=== PATIENT | female | born 1975 | race Two or more races ===

== ENCOUNTER → 2021-02-05 09:55 | Outpatient (BNVA) | payer OTHER, SELFPAY | PROVIDERS: PCP Family Medicine; Referring Provider Family Medicine; Visit Provider Nurse Practitioner ==

== ENCOUNTER 2021-03-01 08:57 | Outpatient (REF) | payer OTHER, SELFPAY ==
--- NOTE | ~2021-03-01 | US_ITS ---
EXAMINATION: US ABDOMEN COMPLETE CLINICAL INFORMATION: Other specified diseases of liver. Hepatic cyst. COMPARISON: Ultrasound abdomen complete 05/09/2020 and 11/15/2019. CT abdomen and pelvis 01/27/2019. TECHNIQUE: Real-time imaging of the abdominal viscera. FINDINGS: PANCREAS: Normal. ABDOMINAL AORTA: The proximal, mid, and distal segments are normal in caliber. INFERIOR VENA CAVA: Visualized portions are normal. LIVER: The liver is normal in size. The liver contour is normal. There is increased liver echogenicity. There are anechoic cysts in anterior segment measuring 3.7 x 2.1 x 4.1 cm and right hepatic lobe posterior segment measuring 1.3 x 1.4 x 1 0.9 cm. There are likely smaller cysts as well. There is no intrahepatic biliary duct dilatation seen. GALLBLADDER: Normal. The gallbladder is physiologically distended without evidence of stones, sludge, polyps, wall thickening or pericholecystic fluid. COMMON BILE DUCT: Normal in caliber measuring 0.5 cm in diameter. RIGHT KIDNEY: Normal. No hydronephrosis. No renal calculi or focal parenchymal lesions. The kidney measures 12.7 cm in maximum dimension. LEFT KIDNEY: Normal. No hydronephrosis. No renal calculi or focal parenchymal lesions. The kidney measures 12.3 cm in maximum dimension. SPLEEN: Normal. The spleen measures 10.1 cm in maximum dimension. FREE FLUID: None. US/US abdomen complete IMPRESSION: Hepatic steatosis with 2 hepatic cysts. They are stable to previous ultrasound exams 2018 and 2019. Rest of the abdominal ultrasound is unremarkable.
== END 2021-03-01 08:58 | disposition home or self-care (01) ==
LOC: HO.HMGCX 08:57
PROVIDERS: Visit Provider Nurse Practitioner
DX: K76.89 Other specified diseases of liver (principal)
CPT/HCPCS: 76700

== ENCOUNTER 2021-03-09 14:00 | Outpatient (RCR) | payer OTHER, SELFPAY ==
[2021-02-13 15:03] VITALS: BP 137/70; PULSE 73
== END 2021-04-03 13:41 | disposition home or self-care (01) ==
LOC: HO.PT 14:00
PROVIDERS: PCP Internal Medicine; Visit Provider Internal Medicine
DX: H81.13 Benign paroxysmal vertigo, bilateral (principal)
CPT/HCPCS: 97110; 97112; 97162

== ENCOUNTER → 2021-07-31 10:55 | Outpatient (BNVA) | payer OTHER, SELFPAY | PROVIDERS: PCP Internal Medicine; Visit Provider Nurse Practitioner ==

== ENCOUNTER 2021-08-02 13:05 | Outpatient (REF) | payer OTHER, SELFPAY ==
[2021-08-05 12:16] LABS: Gliadin Deamidated IgA Ab 3 Units; Gliadin Deamidated IgG Ab 3 Units
[2021-08-05 17:12] LABS: Transglutaminase Ab IgG 2 U/mL; Transglutaminase IgA 1 U/mL
== END 2021-08-02 13:06 | disposition home or self-care (01) ==
LOC: HO.LAB 13:05
PROVIDERS: PCP Internal Medicine; Visit Provider Nurse Practitioner
DX: R14.0 Abdominal distension (gaseous) (principal)
CPT/HCPCS: 36415; 83516

== ENCOUNTER 2021-08-09 15:00 | Outpatient (RCR) | payer OTHER, SELFPAY | END 2021-08-22 11:29 | disposition home or self-care (01) | LOC: HO.PT 15:00 | PROVIDERS: PCP Internal Medicine; Visit Provider Internal Medicine | DX: M54.5 Low back pain (principal) | CPT/HCPCS: 97110; 97112; 97161 ==

== ENCOUNTER → 2021-08-31 15:42 | Outpatient (BNVA) | payer OTHER, SELFPAY | PROVIDERS: PCP Internal Medicine; Visit Provider Nurse Practitioner | DX: K59.00 Constipation, unspecified (principal); K21.9 Gastro-esophageal reflux disease without esophagitis; K76.89 Other specified diseases of liver; R14.0 Abdominal distension (gaseous) | CPT/HCPCS: 99212 ==

== ENCOUNTER → 2021-10-18 08:23 | Outpatient (REF) | payer OTHER, SELFPAY ==
--- NOTE | 2021-10-18 08:30 | CA_ITS ---
Transthoracic Echocardiogram Patient (Last, First, Middle): Tanna Hinton, Gender: Female Date of : 1975 Age: 46 Procedure Date: 10/18/2021 Procedure Type: Transthoracic Echocardiogram Location: OP Height: 162.56 cm Weight: 94.8 kg BSA: 1.99 m2 Heart Rate: bpm BP: 128 / 85 mmHg Drain Cleaner: ROGE/KYLAH Referring MD: Zulema Silva MD Symptoms: I10 HTN R01.1 CARDIAC MURMUR Study Quality: Fair ECG Rhythm: Sinus Conclusions: - The left ventricular systolic function is normal. The calculated ejection fraction is 59% by biplane method. - No obvious valvular pathology seen on this study. Findings Left Ventricle Normal left ventricular cavity size. There is normal left ventricular wall thickness. The left ventricular systolic function is normal. The calculated ejection fraction is 59% by biplane method. There is no evidence of regional wall motion abnormalities. Diastolic function is normal for age. Right Ventricle Normal right ventricular cavity size and systolic function. Atria Both atria are normal in size. Aortic Valve There is a normal trileaflet aortic valve. There is no aortic valve stenosis. There is trace (trivial) aortic valve regurgitation. Mitral Valve The mitral valve appears normal. There is trace mitral valve regurgitation. There is no mitral valve stenosis. Pulmonic Valve The pulmonic valve was not well visualized. Tricuspid Valve Normal tricuspid valve structure. There is trace tricuspid valve regurgitation. The pulmonary artery systolic pressure is normal. Great Vessels The aortic annulus, sinuses of valsalva, and asc aorta are normal in size. Venous The inferior vena cava is normal in size and collapses greater than 50% with inspiration. Pericardium/Pleural There is no evidence of pericardial effusion. Prior Study Comparison No prior study available for comparison. Recommendations, Care & Conclusions No obvious valvular pathology seen on this study. Measurements 2D Linear Measurements IVSd: 0.81 0.6-0.9/0.6-1.0 cm LVIDd: 5.51 3.9-5.3/4.2-5.9 cm LVIDd Index: 2.77 2.4-3.2/2.2-3.1 cm/m2 LVIDs: 3.86 2.0-3.6 cm LVPWd: 0.76 0.7-1.1 cm Ao Root: 2.90 2.1-3.5 cm LA Diam: 3.50 2.7-3.8/3.0-4.0 cm LAIDs Index: 1.76 1.5-2.3 cm/m2 LV Mass: 194.80 67-162/88-224 g LV Mass Index: 97.89 43-95/49-115 g/m2 LVOT Diam: 1.80 3.0+(-)1.3 cm 2D Systolic Function EF 4C: 56.50 >55% EF 2C: 60.90 >55% EF BiP: 58.70 >55% Mitral Valve MV Pk E: 1.06 MV PK A: 0.80 MV Decel Time: 260.00 E/A: 1.30 E'Lateral: 11.50 E'Medial: 8.70 E/E' Med: 12.20 E/E' Lat: 9.20 PHT: 76.00 MVA PHT: 2.89 Decel [place]: 4.08 Aortic Valve AoV Pk Devendra: 1.99 AoV Mn Devendra: 1.44 AoV VTI: 0.46 AoV Pk Grad: 16.00 Aov Mn Grad: 9.00 LUCIANA Cont.VTI: 1.71 LVOT LVOT Pk Devendra: 1.38 LVOT Mn Devendra: 0.84 LVOT VTI: 0.31 LVOT Pk Grad: 8.00 LVOT Mn Grad: 3.00 LVOT Diam: 1.80 LVOT Area: 2.54 Diastolic Function MV Pk E: 1.06 MV Pk A: 0.80 E/A: 1.30 E'Medial: 8.70 E/E' Med: 12.20 E' Laterial: 11.50 E/E' Lat: 9.20 Right Ventricle TAPSE (mm): 2.90 TVS' Devendra: 14.00 Tricuspid Valve TR Pk Devendra: 1.84 TR Pk Grad: 14.00 RA Press: 8.00 RVSP: 22.00 Great Vessels Aorta Ao Root-2D: 2.90 2.0-3.7 cm Ao Asc: 3.10 2.1-3.4 cm Ao Arch: 2.50 Updated in Other Vendor System with Status of Final Antony Jolly MD electronically signed on 10/19/2021 11:30:03 AM with status of Final
== END ==
LOC: HO.CARD 08:23
PROVIDERS: PCP Internal Medicine; Visit Provider Pediatrics
DX: R01.1 Cardiac murmur, unspecified (principal); I10 Essential (primary) hypertension
CPT/HCPCS: 93306

== ENCOUNTER 2022-02-05 15:35 | Outpatient (REF) | payer OTHER, SELFPAY ==
--- NOTE | ~2022-02-05 | MM_ITS ---
EXAMINATION: MM SCREENING DIGITAL BREAST TOMOSYNTHESIS, BILATERAL CLINICAL INFORMATION: Screening. Asymptomatic. The lifetime risk of breast cancer based on the Tyrer-Cuzick Model is 10%. COMPARISON: Mammography: November 12, 2019 and studies dating back to January 08, 2016 TECHNIQUE: Digital breast tomosynthesis is performed in both the craniocaudal and mediolateral oblique views along with computer-aided detection (CAD). Synthesized 2D images are generated from the tomosynthesis. FINDINGS: There are scattered areas of fibroglandular density (ACR BI-RADS breast composition Category b). There are no significant masses, abnormal calcifications, or other abnormalities. MM/MM tomosynthesis screening BI IMPRESSION: There are no significant changes from prior study. ASSESSMENT: BI-RADS 1: Negative RECOMMENDATION: Routine annual mammography screening. This patient's information was entered into a reminder system with a target due date for their next mammogram.
== END 2022-02-05 15:36 | disposition home or self-care (01) ==
LOC: HO.MAMMO 15:35
PROVIDERS: PCP Internal Medicine; Visit Provider Internal Medicine
DX: Z12.31 Encounter for screening mammogram for malignant neoplasm of breast (principal)
CPT/HCPCS: 77063; 77067

== ENCOUNTER 2022-04-10 14:06 | Outpatient (REF) | payer MEDICAID, SELFPAY ==
[2022-04-16 11:51] LABS: HPV mRNA E6/E7 rflx Not Detected (Not Detected)
== END 2022-04-10 14:07 | disposition home or self-care (01) ==
LOC: HO.LAB 14:06
PROVIDERS: Visit Provider Advanced Practice Midwife
DX: Z01.419 Encounter for gynecological examination (general) (routine) without abnormal findings (principal); Z11.51 Encounter for screening for human papillomavirus (HPV)
CPT/HCPCS: 87624; 88142

== ENCOUNTER 2023-02-26 07:51 | Outpatient (REF) | payer MEDICAID, SELFPAY ==
--- NOTE | ~2023-02-26 | MM_ITS ---
EXAMINATION: MM SCREENING DIGITAL BREAST TOMOSYNTHESIS, BILATERAL CLINICAL INFORMATION: Screening. Asymptomatic. The lifetime risk of breast cancer based on the Tyrer-Cuzick Model is 7%. COMPARISON: Mammography: 02/05/2022, 11/12/2019; outside mammography 01/14/2017 TECHNIQUE: Digital breast tomosynthesis is performed in both the craniocaudal and mediolateral oblique views along with computer-aided detection (CAD). Synthesized 2D images are generated from the tomosynthesis. FINDINGS: There are scattered areas of fibroglandular density (ACR BI-RADS breast composition Category b). Breast tissue composition borders on average fibroglandular. There are no significant masses, abnormal calcifications, or other abnormalities. Parenchymal pattern is similar to prior studies. There is no developing density or architectural abnormality. The axilla and skin contours are unremarkable. No significant changes. MM/MM tomosynthesis screening BI IMPRESSION: No mammographic evidence of malignancy. ASSESSMENT: BI-RADS 1: Negative RECOMMENDATION: Routine annual mammography screening. This patient's information was entered into a reminder system with a target due date for their next mammogram.
== END 2023-02-26 07:52 | disposition home or self-care (01) ==
LOC: HO.MAMMO 07:51
PROVIDERS: PCP Internal Medicine; Visit Provider Internal Medicine
DX: Z12.31 Encounter for screening mammogram for malignant neoplasm of breast (principal)
CPT/HCPCS: 77063; 77067

== ENCOUNTER 2023-06-17 08:20 | Outpatient (REF) | payer MEDICAID, SELFPAY | END 2023-06-17 08:21 | disposition home or self-care (01) | LOC: HO.CHCLDS 08:20 | PROVIDERS: Visit Provider Internal Medicine | DX: R10.31 Right lower quadrant pain (principal) | CPT/HCPCS: 87086 ==

== ENCOUNTER 2023-06-20 15:17 | Outpatient (REF) | payer MEDICAID, SELFPAY ==
--- NOTE | ~2023-06-20 | XR_ITS ---
EXAMINATION: XR ABDOMEN KUB CLINICAL INDICATION: Right lower quadrant pain. COMPARISON: CT scan dated 01/27/2019. No prior KUB. TECHNIQUE: AP view of the abdomen. FINDINGS: The bowel gas pattern appears unremarkable, with no evidence of ileus or obstruction. No unusual soft tissue calcifications are noted. The bones are unremarkable. XR/XR KUB IMPRESSION: Unremarkable examination.
== END 2023-06-20 15:18 | disposition home or self-care (01) ==
LOC: HO.XRAY 15:17
PROVIDERS: Visit Provider Internal Medicine
DX: R10.31 Right lower quadrant pain (principal)
CPT/HCPCS: 74018

== ENCOUNTER 2023-07-30 10:33 | Outpatient (REF) | payer MEDICAID, SELFPAY ==
--- NOTE | ~2023-07-30 | US_ITS ---
EXAMINATION: US PELVIS CLINICAL INFORMATION: Right lower quadrant pain. COMPARISON: CT abdomen and pelvis 01/27/2019, pelvic ultrasound 08/19/2017. TECHNIQUE: Ultrasound of the pelvis is performed using both transabdominal and transvaginal transducers along with Doppler. Transvaginal imaging is performed due to inadequate visualization transabdominally. FINDINGS: Uterus: The uterus is anteverted and measures 7.4 x 3.6 x 5.7 cm for a volume of 80 mL. The double wall endometrial thickness is 5 mm. Nabothian cysts are present in the cervix. 4 uterine fibroids are seen ranging in size from under 1 cm to 2.0 cm. Similar findings were present on the 2017 study. Adnexa: Both ovaries are visualized. There is normal color flow to the adnexa. There is no ovarian torsion. There is no pelvic ascites or fluid collection. Right ovary measures 3.3 x 1.9 x 2.7 cm for a volume of 8.9 mL which includes a 1.6 cm benign cyst. Left ovary measures 4.4 x 2.3 x 4.1 cm for a volume of 21.4 mL which includes 2 cysts, one simple measuring 2.4 cm and another complex with some echogenic debris. US/US pelvic and transvaginal IMPRESSION: 1. Multiple uterine fibroids. 2. Small bilateral ovarian cysts need no follow up.
== END 2023-07-30 10:34 | disposition home or self-care (01) ==
LOC: HO.US 10:33
PROVIDERS: PCP Internal Medicine; Visit Provider Internal Medicine
DX: R10.31 Right lower quadrant pain (principal)
CPT/HCPCS: 76830; 76856

== ENCOUNTER 2024-02-15 07:07 | Emergency (ER) | payer MEDICAID, SELFPAY ==
[2024-02-15 07:15] VITALS: BP 161/76; PULSE 85; RESP 18; TEMP 36.6; O2SAT 96; BMI 41.3
--- NOTE | 2024-02-15 07:41 | ED.ABDPAIN ---
HPI - Abdominal Pain General Chief Complaint: Abdominal Pain Stated Complaint: Abd pain R side Time Seen by Provider: 02/15/24 07:23 Source: patient Mode of arrival: ambulatory Limitations: language barrier History of Present Illness HPI narrative: Tanna is a 48 year old female with history of HTN, endometrial hyperplasia, diverticulosis, GERD, and abdominal bloating presents today for evaluation of worsening chronic right lower/middle abdominal pain. Tanna reports that she has had this pain for over a year but noticed worsening on Friday. She reports that on Friday the pain became a 9 out of 10 and radiated to the superior region of the right lower extremity. She reports that the pain has not been that severe since then. Pain is now a 7 out of 10. Movement worsens the pain. No alleviating factors. Patient reports that she is perimenopausal. Reports feeling hot at home. No chest pain or shortness of breath. No vomiting or diarrhea. Has been feeling nauseous. Reports no difficulty with bowel movements- soft and regular. MD elicited complaint: abdominal pain (right middle/lower abdominal pain) Pertinent past history: constipation and other (diverticulosis) Onset (ago): day(s) (has been acutely worsening over the last 6 days) Pain Consistency: intermittent Location: RLQ (mid/lower) Severity: severe Pain scale (0-10): 7 Quality: stabbing Radiation: none Migration to: no migration Exacerbating factors: movement Relieving factors: rest Context: history of similar episodes Associated symptoms: nausea Related Data Home Medications Medication Instructions Recorded Confirmed albuterol sulfate 90 mcg/actuation inhalation 02/05/21 04/10/22 aerosol inhaler cholecalciferol (vitamin D3) 50 50 mcg PO DAILY 02/05/21 04/10/22 mcg (2,000 unit) capsule epinephrine 0.3 mg/0.3 mL IM DIRECTED 02/05/21 04/10/22 injection, auto-injector ergocalciferol (vitamin D2) 1,250 1,250 mcg PO QWEEK 02/05/21 04/10/22 mcg (50,000 unit) capsule hydrochlorothiazide 25 mg tablet 25 mg PO DAILY 02/05/21 04/10/22 meclizine 25 mg tablet 25 mg PO DAILY PRN 02/05/21 04/10/22 multivitamin-iron sulfate 15 1 tab PO DAILY 02/05/21 04/10/22 mg-folic acid 400 mcg tablet omeprazole 20 mg capsule,delayed 20 mg PO DAILY 02/05/21 04/10/22 release Previous Rx's Medication Instructions Recorded simethicone 180 mg capsule (Gas 180 mg PO TID abdominal distention 07/31/21 Relief (simethicone)) 30 days #90 caps magnesium oxide 400 mg (241.3 mg 400 mg PO DAILY #30 tabs 03/25/22 magnesium) tablet cyclobenzaprine 10 mg tablet 10 mg PO TID PRN muscle spasm #10 02/15/24 tabs ibuprofen 600 mg tablet 600 mg PO Q8H PRN pain #20 tabs 02/15/24 Allergies Allergy/AdvReac Type Severity Reaction Status Date / Time oxycodone Allergy Unknown itchy Verified 02/15/24 07:15 Review of Systems Review of Systems Yes all other systems are reviewed and are negative [facility] Past Medical History Medical History (Updated 02/15/24 @ 11:02 by MADDIE Rodriguez) HTN (hypertension) Surgical History Hx of colonoscopy Family History Family History Father No problems noted. Mother HTN (hypertension) Social History Social History (Updated 04/10/22 @ 14:46 by Cat Gastelum CMA) Household Members: None Housing: Apartment Alcohol intake: former Patient Tobacco Use Status: Never used Tobacco Smoked in Last 30 Days: No Use of substances other than those prescribed or required for medical reasons: No Advance Directives: No Advance Directives Information Provided: Yes Physical Exam ED Vital Signs: Vital Signs - 24 hr 02/15/24 07:15 02/15/24 10:00 Temperature 97.9 F Pulse Rate 85 75 Respiratory Rate 18 16 Blood Pressure 161/76 H 149/74 H Pulse Oximetry 96 98 Oxygen Delivery Method Room Air Room Air BMI result Body Mass Index 41.3 Appearance: Alert. Oriented X3. No acute distress. Head: normocephalic, atraumatic. CVS: Normal heart rate and rhythm. Pulses normal. Respiratory: No respiratory distress. Breath sounds normal. Abdomen: Soft and non-tender in RLQ at McBurneys point. no rebound or guarding. tenderness of the middle abdomen Skin: Skin warm and dry. Normal skin color. Extremities: No lower extremity edema. No joint swelling. Neuro/psych: Oriented X 3. No motor deficit. Normal speech and cognition. Medical Decision Making Medical Decision Making [facility] Narrative: Tanna is a 48 year old female with history of HTN, endometrial hyperplasia, diverticulosis, GERD, and abdominal bloating presents today for evaluation of worsening chronic right lower/middle abdominal pain. Tanna reports that she has had this pain for over a year but noticed worsening on Friday. Today, she reports nausea and 7/10 pain in the right lower/middle quadrant. No Chen's point, no tender to McBurney's point. She appears comfortable and is to ambulate to the stretcher. Physical exam is benign and inspection of the abdomen reveals no distention, rigidity or guarding UTI obtained is negative for infectious etiology. Labwork is negative, she most likely has right abdominal/flank pain associated with pain due to muscular strain. Will hold off on imaging today given her presentation and reassuring exam Case discussed with attending, Dr. Jaimes who evaluated patient at bedside. She is in agreement. Differential Diagnosis Differential Diagnoses: The differential diagnosis associated with the presentation includes muscular sprain, UTI, pyelonephrititis, Meckel diverticulum, abscess, diverticulitis, endometriosis, uterine fibroid pain, ovarian cyst rupture, appendicitis, cholecystitis, cholelithiasis Admission/Observation Consideration of admission/observation: Escalation of care including admission/observation considered Lab Data [facility] Lab Attestation statement: I reviewed the patient's lab results. 02/15/24 07:45 02/15/24 07:45 Labs: Lab Results 02/15/24 02/15/24 Range/Units 07:45 07:48 WBC 5.7 (4.8-10.8) X10*3/uL RBC 4.44 (4.20-5.50) X10*6/uL Hgb 13.6 (12.0-16.0) g/dl Hct 38.7 (37.0-47.0) % MCV 87.2 (80.0-98.0) fL MCH 30.6 (27.0-33.0) pg MCHC 35.1 H (31.0-35.0) g/dl RDW 13.1 (11.0-16.0) % Plt Count 251 (160-400) X10*3/uL MPV 10.5 (9.4-12.3) fL Immature Gran % (Auto) 0.4 (0.0-0.4) % Neut % (Auto) 61.4 (45-73) % Lymph % (Auto) 26.2 (20-40) % [place] % (Auto) 9.9 (2-11) % Eos % (Auto) 1.4 (0-4) % Baso % (Auto) 0.7 (0-2) % Lymph # (Auto) 1.5 (1.2-4.9) X10*3/uL [place] # (Auto) 0.6 (0.1-1.2) X10*3/uL Eos # (Auto) 0.1 (0.0-0.4) X10*3/uL Baso # (Auto) 0.0 (0.0-0.2) X10*3/uL Abs Immat Gran (auto) 0.02 (0.00-0.03) X10*3/uL Absolute Neuts (auto) 3.5 (2.0-8.3) x10*3/uL Absolute Nucleated RBC 0.000 (0.0-0.012) X10*3/uL Nucleated RBC % (auto) 0.0 (0.0-0.2) /100WBC Urine Color Yellow Urine Appearance Clear Urine pH 7.0 (5.0-9.0) Ur Specific [place] <= 1.005 (1.005-1.025) Urine Protein Negative (Neg-Trace) mg/dL Urine Glucose (UA) Negative (Negative) mg/dL Urine Ketones Negative (Negative) mg/dL Urine Blood Negative (Negative) Urine Nitrite Negative (Negative) Ur Leukocyte Esterase Negative (Negative) External Record Review External record reviewed: Outpatient record, Prior outpatient labs and Prior outpatient radiology Prescription Management I considered prescription management with: Pain Medication Chronic Conditions Patient?s care impacted by: Other (constipation) Medications Administered Discontinued Medications Generic Name Dose Route Start Last Admin Trade Name Freq PRN Reason Stop Dose Admin Ibuprofen 600 mg 02/15/24 11:05 02/15/24 11:51 Ibuprofen 600 Mg Tablet PO 02/15/24 11:06 600 mg ONCE ONE Administration Critical Care Time Critical Care Time Critical Care Time: No Discharge Plan Discharge Clinical Impression: Abdominal muscle strain Qualifiers: Encounter type: initial encounter Qualified Code(s): S39.011A - Strain of muscle, fascia and tendon of abdomen, initial encounter Patient Disposition: Home, Self-Care Instructions: Muscle Strain (DC) Additional Instructions: Your exam was reassuring, your abdominal pain is most likely muscular in nature. You can take ibuprofen 600mg every 8 hours as needed for pain. Use cyclobenzaprine 10mg every 8 hours as needed for breakthrough pain. Prescriptions: New cyclobenzaprine 10 mg tablet 10 mg PO TID PRN (Reason: muscle spasm) Qty: 10 0RF ibuprofen 600 mg tablet 600 mg PO Q8H PRN (Reason: pain) Qty: 20 0RF No Action magnesium oxide 400 mg (241.3 mg magnesium) tablet 400 mg PO DAILY Qty: 30 6RF cholecalciferol (vitamin D3) 50 mcg (2,000 unit) capsule 50 mcg PO DAILY ergocalciferol (vitamin D2) 1,250 mcg (50,000 unit) capsule 1,250 mcg PO QWEEK hydrochlorothiazide 25 mg tablet 25 mg PO DAILY meclizine 25 mg tablet 25 mg PO DAILY PRN albuterol sulfate 90 mcg/actuation HFA aerosol inhaler inhalation Tab-A-Nam Multivitamin w-iron 15 mg iron- 400 mcg tablet 1 tab PO DAILY epinephrine 0.3 mg/0.3 mL auto-injector IM DIRECTED omeprazole 20 mg capsule,delayed release(DR/EC) 20 mg PO DAILY simethicone [Gas Relief (simethicone)] 180 mg capsule 180 mg PO TID 30 Days Qty: 90 6RF Referrals: Anurag Washington MD [Primary Care Provider] - Print Language: Bulgarian
[2024-02-15 07:49] LABS: MANUAL DIFF FLAG NO
[2024-02-15 07:54] LABS: Basophils Percent Auto 0.7 % (0-2); Eosinophils Absolute Auto 0.1 X10*3/uL (0.0-0.4); Eosinophils Percent Auto 1.4 % (0-4); Hematocrit 38.7 % (37.0-47.0); Hemoglobin 13.6 g/dl (12.0-16.0); Imm Gran Abs Auto 0.02 X10*3/uL (0.00-0.03); Imm Gran Pct Auto 0.4 % (0.0-0.4); Lymphocytes Absolute Auto 1.5 X10*3/uL (1.2-4.9); Lymphocytes Percent Auto 26.2 % (20-40); Mean Corpuscular HGB Conc 35.1 g/dl (31.0-35.0); Mean Corpuscular Hemoglobin 30.6 pg (27.0-33.0); Mean Corpuscular Volume 87.2 fL (80.0-98.0); Mean Platelet Volume 10.5 fL (9.4-12.3); Monocytes Absolute Auto 0.6 X10*3/uL (0.1-1.2); Monocytes Percent Auto 9.9 % (2-11); Neutrophils Absolute Auto 3.5 x10*3/uL (2.0-8.3); Neutrophils Percent Auto 61.4 % (45-73); Platelet Count 251 X10*3/uL (160-400); Red Blood Count 4.44 X10*6/uL (4.20-5.50); Red Cell Distribution Width 13.1 % (11.0-16.0); White Blood Count 5.7 X10*3/uL (4.8-10.8)
[2024-02-15 08:03] LABS: Appearance Urine Clear; Color Urine Yellow; Glucose Urine UA Negative (Negative); Leukocyte Esterase Urine Negative (Negative); Nitrite Urine Negative (Negative); Specific Gravity - Urine <= 1.005 (1.005-1.025); Urine Blood Negative (Negative); Urine Ketones Negative (Negative); Urine Protein Negative (Neg-Trace)
[2024-02-15 10:00] VITALS: BP 149/74; PULSE 75; RESP 16; O2SAT 98
[2024-02-15] MEDS: Ibuprofen 600 MG TABLET PO (11:51)
[2024-02-15 12:34] LABS: Alanine Aminotransferase 12 U/L (0-31); Albumin Level 4.3 g/dL (3.5-5.0); Alkaline Phosphatase 79 U/L (39-117); Anion Gap 10 (12-20); Aspartate Amino Transferase 21 U/L (5-31); Bilirubin Direct 0.2 mg/dL (0.0-0.5); Bilirubin Total 0.4 mg/dL (0.0-1.0); Blood Urea Nitrogen 10 mg/dL (9-16); Calcium 9.1 mg/dL (8.4-10.2); Carbon Dioxide 26 mmol/L (22-29); Chloride 105 mmol/L (96-108); Creatinine Clr Calc Pharmacy 125.6; Estimated Glomerular Filt Rate > 60; Glucose Random 109 mg/dL (60-115); Lipase 31 U/L (8-78); Magnesium 2.1 mg/dL (1.6-2.6); Sodium 138 mmol/L (135-145); Total Protein 7.5 g/dL (6.5-8.0)
[2024-02-15 12:35] VITALS: BP 145/82; PULSE 69; RESP 16; TEMP 37.2; O2SAT 98
== END 2024-02-15 12:44 | disposition home or self-care (01) ==
PROVIDERS: Physician Assistant; Emergency Provider Student in an Organized Health Care Education/Training Program; PCP Internal Medicine
DX: S39.011A Strain of muscle, fascia and tendon of abdomen, initial encounter (principal); I10 Essential (primary) hypertension; X58.XXXA Exposure to other specified factors, initial encounter; Y93.9 Activity, unspecified; Y92.9 Unspecified place or not applicable; Y99.9 Unspecified external cause status
CPT/HCPCS: 36415; 80048; 80076; 81003; 83690; 83735; 85025; 99284

== ENCOUNTER 2024-03-04 07:50 | Outpatient (REF) | payer MEDICAID, SELFPAY | END 2024-03-04 07:51 | disposition home or self-care (01) | LOC: HO.MAMMO 07:50 | PROVIDERS: PCP Internal Medicine; Visit Provider Internal Medicine | DX: Z12.31 Encounter for screening mammogram for malignant neoplasm of breast (principal) | CPT/HCPCS: 77063; 77067 ==

== ENCOUNTER → 2024-03-04 08:00 | Outpatient (BNV) | payer MEDICAID, SELFPAY | PROVIDERS: PCP Internal Medicine; Visit Provider Radiology Diagnostic Radiology | DX: Z12.31 Encounter for screening mammogram for malignant neoplasm of breast (principal) | CPT/HCPCS: 77063; 77067 ==

== ENCOUNTER 2024-04-02 07:19 | Outpatient (REF) | payer MEDICAID, SELFPAY ==
[2024-04-02 08:48] LABS: Blood Urea Nitrogen 6 mg/dL (9-16); Estimated Glomerular Filt Rate > 60
== END 2024-04-02 07:20 | disposition home or self-care (01) ==
LOC: HO.LAB 07:19
PROVIDERS: PCP Internal Medicine; Visit Provider Emergency Medicine
DX: R10.11 Right upper quadrant pain (principal)
CPT/HCPCS: 36415; 82565; 84520

== ENCOUNTER 2024-04-05 13:52 | Outpatient (REF) | payer MEDICAID, SELFPAY ==
--- NOTE | ~2024-04-05 | CT_ITS ---
EXAMINATION: CT ABDOMEN AND PELVIS WITH CONTRAST CLINICAL INFORMATION: Worsening abdominal pain at the level of the umbilicus on the right. COMPARISON: Ultrasound abdomen 03/01/2021, CT abdomen and pelvis 01/27/2019. TECHNIQUE: Multidetector volumetric images were obtained from the superior aspect of the liver through the pubic symphysis following administration 85 mL of Omnipaque 350 intravenous contrast. Sagittal and coronal reformatted images were obtained on the technologist's workstation. Oral contrast: No This CT examination was performed using dose optimization techniques as appropriate, variously including the following: *Automated exposure control *Adjustment of mA and/or kV according to patient size (this includes techniques or standardized protocols for targeted exams where dose is matched to indication/reason for exam; i.e. extremities or head) *Use of iterative reconstruction technique DLP: 655 mGy-cm. FINDINGS: LUNG BASES: The visualized lung bases are unremarkable. LIVER, GALLBLADDER, AND BILIARY TREE: The liver is normal in size and shape with a question of decreased attenuation. Attenuation is difficult to extension work director after IV contrast, but there is focal fatty sparing seen around the gallbladder. At least 3 benign simple cysts are present in the liver, ranging in size from under a centimeter to up to 4.2 cm. These need no additional follow-up. No suspicious solid focal hepatic lesion or biliary ductal dilatation is present. The gallbladder is unremarkable with no evidence of radiopaque gallstones, gallbladder wall thickening, or obvious pericholecystic inflammatory changes. PANCREAS: Unremarkable. SPLEEN: Unremarkable. ADRENAL GLANDS: Unremarkable. KIDNEYS AND URETERS: The kidneys are normal in size, shape, and attenuation. No hydronephrosis, hydroureter, or calculi seen. No perinephric stranding. BLADDER: Unremarkable. GASTROINTESTINAL TRACT: The small and large bowel are unremarkable. The appendix is not seen but there is no evidence of appendicitis. ABDOMINAL WALL: No significant hernia is appreciated. There is a tiny periumbilical hernia seen containing only fat. LYMPH NODES: Normal. VASCULAR: Unremarkable. PELVIC VISCERA: The uterus and adnexa are unremarkable. OSSEOUS STRUCTURES: Unremarkable. CT/CT abdomen pelvis w IV con IMPRESSION: 1. A cause for the patient's abdominal pain has not been found. 2. Incidental note made of hepatic steatosis, benign hepatic cysts which need no additional follow-up and a tiny periumbilical hernia containing only fat. Fleischner guidelines were followed.
[2024-04-05] MEDS: Barium Sulfate Oral (Mocha) 450 ML ORAL.SUSP 900 ML PO (16:08)
[2024-04-05] MEDS: iohexoL 350 MG/ML 100 ML INFUS..BTL 85 ML IV (16:10)
== END 2024-04-05 13:53 | disposition home or self-care (01) ==
LOC: HO.CT 13:52
PROVIDERS: PCP Emergency Medicine; Visit Provider Emergency Medicine
DX: R10.11 Right upper quadrant pain (principal)
CPT/HCPCS: 74177; Q9967

== ENCOUNTER 2024-06-18 08:26 | Outpatient (REF) | payer MEDICAID, SELFPAY ==
[2024-06-20 23:09] LABS: TS Negative Control Passed; TS Panel A 0; TS Panel B 0; TS Positive Control Passed; TSpotTB Negative (Negative)
== END 2024-06-18 08:27 | disposition home or self-care (01) ==
LOC: HO.CHCLDS 08:26
PROVIDERS: Visit Provider Internal Medicine
DX: Z11.1 Encounter for screening for respiratory tuberculosis (principal)
CPT/HCPCS: 36415; 86481

== ENCOUNTER 2024-06-29 09:32 | Outpatient (REF) | payer MEDICAID, SELFPAY ==
[2024-06-29 14:42] LABS: MANUAL DIFF FLAG NO
[2024-06-29 14:49] LABS: Basophils Percent Auto 0.8 % (0-2); Eosinophils Absolute Auto 0.1 X10*3/uL (0.0-0.4); Hematocrit 38.1 % (37.0-47.0); Imm Gran Abs Auto 0.01 X10*3/uL (0.00-0.03); Imm Gran Pct Auto 0.2 % (0.0-0.4); Lymphocytes Absolute Auto 1.5 X10*3/uL (1.2-4.9); Lymphocytes Percent Auto 31.1 % (20-40); Mean Corpuscular HGB Conc 34.1 g/dl (31.0-35.0); Mean Corpuscular Hemoglobin 29.8 pg (27.0-33.0); Mean Corpuscular Volume 87.4 fL (80.0-98.0); Mean Platelet Volume 11.5 fL (9.4-12.3); Monocytes Absolute Auto 0.6 X10*3/uL (0.1-1.2); Monocytes Percent Auto 11.5 % (2-11); Neutrophils Absolute Auto 2.7 x10*3/uL (2.0-8.3); Neutrophils Percent Auto 55.4 % (45-73); Platelet Count 225 X10*3/uL (160-400); Red Blood Count 4.36 X10*6/uL (4.20-5.50); White Blood Count 4.9 X10*3/uL (4.8-10.8)
[2024-06-29 15:01] LABS: Estimated Average Glucose 117 mg/dL; Hemoglobin A1c % 5.7 % (<6.0)
[2024-06-29 15:13] LABS: Creatinine Urine 48.86 mg/dL; Microalbumin Urine < 5.0 mg/L
[2024-06-29 15:16] LABS: Alanine Aminotransferase 18 U/L (0-31); Albumin Level 4.2 g/dL (3.5-5.0); Alkaline Phosphatase 75 U/L (39-117); Anion Gap 13 (12-20); Aspartate Amino Transferase 24 U/L (5-31); Bilirubin Total 0.4 mg/dL (0.0-1.0); Blood Urea Nitrogen 10 mg/dL (9-16); Calcium 9.4 mg/dL (8.4-10.2); Carbon Dioxide 25 mmol/L (22-29); Chloride 105 mmol/L (96-108); Cholesterol 161 mg/dL (<200); Estimated Glomerular Filt Rate > 60; Glucose Random 87 mg/dL (60-115); HDL Cholesterol 52 mg/dL (>40); LDL Cholesterol Calculated 99 mg/dL (<100); Potassium 3.5 mmol/L (3.3-5.1); Sodium 139 mmol/L (135-145); Total Protein 7.2 g/dL (6.5-8.0); Triglycerides 53 mg/dL (<150)
[2024-06-29 15:35] LABS: TSH reflex Free T4 0.79 uIU/mL (0.32-4.0); Vitamin D 25-OH Total 44.6 ng/mL (>30)
[2024-06-30 08:15] LABS: HBS Num1 183.52 mIU/mL (0-7.99); HBsAGNum1 0.28 S/CO (0.00-0.99); HIV AB/AG Nonreactive (Nonreactive); HIV Num 1 0.05 S/CO (0.00-0.99); Hepatitis B Core Antibody Nonreactive (Nonreactive); Hepatitis B Surface Antigen Negative (Negative); ~Hepatitis B Surface Antibody REACTIVE (Nonreactive)
[2024-07-01 08:48] LABS: HCV Log PCR <1.18 NOT DETECTED Log IU/mL (NOT DETECTED); HepC Viral Load <15 NOT DETECTED IU/mL (NOT DETECTED)
[2024-07-01 17:58] LABS: RPR Rapid Plasma Reagin NON-REACTIVE (NON-REACTIVE)
== END 2024-06-29 09:33 | disposition home or self-care (01) ==
LOC: HO.CHCLDS 09:32
PROVIDERS: Visit Provider Registered Nurse
DX: Z00.00 Encounter for general adult medical examination without abnormal findings (principal)
CPT/HCPCS: 36415; 80053; 80061; 82043; 82306; 82570; 83036; 84443; 85025; 86592; 86704; 86706; 87340; 87389; 87522

== ENCOUNTER 2024-06-30 15:56 | Outpatient (AMB) | payer MEDICAID, SELFPAY ==
--- NOTE | 2024-06-30 16:03 | A.OFFVIS_ITS ---
Vital Signs 06/30/24 16:24 06/30/24 16:26 Weight 237 lb BP 108/58 L Blood Pressure Location Lt brachial Position Sitting Respiration 20 Pulse 78 Pulse Oximetry (%) 97 Intake Visit Reasons: Abdominal pain Intake Note: Patient follow up Backup Engineer Required: Yes Accompanied by: Self / Same As Patient Allergies oxycodone Allergy (Unknown, Verified 06/30/24 16:30) itchy HPI HPI Abdominal pain: Details: Assessment & Plan (1) Constipation: ?Code(s): K59.00 - Constipation, unspecified ?Plan: [place] #[id number], Jatin She says she has good days and bad days. She also has problems when she eats grains, as she has always reported. I let her know that the labs do not seem to indicate an outright gluten allergy, but this is somewhat different from an inability to digest certain foods well. She expresses concerns about missing nutrients that she may need, and specifically iron for anemia, and I recommend a MVI and also relocation counselor her that most iron comes from the meats we eat rather than grains. She continues on her magnesium for her CIC and her omeprazole 20mg qd and simethicone for occasional bloating. These seem to control her GERD and bloating fairly well. ROV 6 mos (2) GERD (gastroesophageal reflux disease): ?Code(s): K21.9 - Gastro-esophageal reflux disease without esophagitis (3) Abdominal bloating: ?Code(s): R14.0 - Abdominal distension (gaseous) (4) Hepatic cyst: ?Comment: 01/2019 CT abd and pelvis incidental finding, LFT s normal, 04/2020 no change in cysts monitor at 6 mos ?Code(s): K76.89 - Other specified diseases of liver Laboratory Tests 08/27/19 06/29/24 11:46 09:35 WBC 4.9 Hgb 13.0 Hct 38.1 Plt Count 225 Estimated GFR > 60 Total Bilirubin 0.4 AST 24 ALT 18 Alkaline Phosphatase 75 TSH 0.79 Hep Bs Antigen Negative Hep Bs Antibody REACTIVE Hep B Core Total Ab Nonreactive Hepatitis C Ab (EIA) NONREACTIVE HIV 1&2 Ab/P[address] ABD AND PELVIS 05/15/24 IMPRESSION: 1. A cause for the patient's abdominal pain has not been found. 2. Incidental note made of hepatic steatosis, benign hepatic cysts which need no additional follow-up and a tiny periumbilical hernia containing only fat. TODAY'S VISIT [place] [facility]paulette Live PATIENT HAS BEEN LOST FOLLOW-UP SINCE 08/2021 She says she continues on the omeprazole and simethicone but is unsure if she is taking magnesium. She continues to feel quite bloated, and it is worse with eating greasy foods or grains. She says she was sent here by the ER because of fatty liver, however, she has normal transaminases and this can be followed by her PCP with encouragement of wt loss - she does not drink ETOH adn no NIDDM. She IS due for a colonoscopy and we will get this ordered, the last in 2019 she has poor prep. There are no prior problems with anesthesia or sedation. There are no infectious disease problems. There is no known family history of colon cancer or polyps. ROV after colonoscopy. [facility] Medical History (Updated 07/01/24 @ 09:15 by KENIA Weaver) HTN (hypertension) Surgical History Hx of colonoscopy Family History Father No problems noted. Mother HTN (hypertension) Social History Household Members: None Housing: Apartment Alcohol intake: former Patient Tobacco Use Status: Never used Tobacco Female Reproductive History Menstrual Age of Menarche: 13 Review of Systems Const Denies fatigue, Denies fever(s), Denies night sweats, Denies poor appetite and Denies weight loss Eyes Reports requires corrective lenses ENT Reports Normal hearing present, Denies dental pain, Denies dysphagia, Denies hearing loss, Denies mouth pain, Denies odynophagia, Denies throat swelling, Denies tongue swelling and Reports other (Dentition adequate) GI Details: Denies abdominal pain, Denies melena, Denies bloating, Denies hematochezia, Denies constipation, Denies GI cramping, Denies dysphagia, Denies excessive flatus, Denies early satiety, Denies heartburn, Denies diarrhea, Denies nausea, Denies odynophagia, Denies vomiting and Denies hematemesis Skin/Breast Denies pruritus, Denies lesions, Denies rash and Denies jaundice Neuro Reports Normal hearing present and Denies Abnormal speech present Endo Denies fatigue Aller/Immun Denies throat swelling and Denies tongue swelling Physical Exam Vital Signs: Last Vital Signs Pulse 78 06/30/24 16:24 Resp 20 06/30/24 16:24 BP 108/58 L 06/30/24 16:24 Pulse Ox 97 06/30/24 16:24 Const General: cooperative, no acute distress, well developed and well groomed Nutritional Appearance: well nourished, obese and overweight Orientation/consciousness: oriented to person, oriented to place and oriented to time Limitations: No language barrier, ambulation with cane, ambulation with walker and wheelchair HEENT Head: Yes normocephalic and Yes atraumatic Eyes General: appearance normal, both eyes and all related structures Pupils: Equal, round and reactive pupils present Neck Neck: Yes normal visual inspection and Yes no lymphadenopathy Thyroid: Thyroid normal Resp Effort & Inspection: normal respiratory effort and able to speak in complete sentences Auscultation: clear to auscultation bilaterally Cardio Rate: regular rate Rhythm: regular rhythm Heart sounds: Normal, physiologic split S2 sound present Peripheral pulses: radial pulses present and posterior tibial pulses present GI Inspection: No distended and No Abdominal panniculus present Palpation (GI): Soft to palpation, nontender, no guarding, not rigid, No hepatosplenomegaly present and Hepatosplenomegaly present Percussion: Yes normal to percussion Auscultation: normal bowel sounds Rectal Exam - Female: deferred Skin General skin exam: no rashes or lesions noted, turgor normal, skin not dry, no jaundice, No spider nevi and no striae Rashes: no rashes Nails: normal Neuro General: oriented to person, oriented to place and oriented to time Cranial nerves: Yes Equal, round and reactive pupils present and Yes Normal hearing present Speech: No Abnormal speech present Extrem General: Yes normal to inspection, No clubbing, No cyanosis and No edema Psych Thought process: Normal thought process present and not confabulating Thought content: Normal thought content present Insight: Good insight present (Psych) Judgement: Good judgement present (Psych) Results Reviewed Results Reviewed: Laboratory Tests 08/27/19 06/29/24 11:46 09:35 WBC 4.9 Hgb 13.0 Hct 38.1 Plt Count 225 Estimated GFR > 60 Total Bilirubin 0.4 AST 24 ALT 18 Alkaline Phosphatase 75 TSH 0.79 Hep Bs Antigen Negative Hep Bs Antibody REACTIVE Hep B Core Total Ab Nonreactive Hepatitis C Ab (EIA) NONREACTIVE HIV 1&2 Ab/P24 Ag [address] Nonreactive CT ABD AND PELVIS 05/15/24 IMPRESSION: 1. A cause for the patient's abdominal pain has not been found. 2. Incidental note made of hepatic steatosis, benign hepatic cysts which need no additional follow-up and a tiny periumbilical hernia containing only fat Assessment & Plan Assessment & Plan (1) Constipation: Code(s): K59.00 - Constipation, unspecified Category: Medical (2) GERD (gastroesophageal reflux disease): Code(s): K21.9 - Gastro-esophageal reflux disease without esophagitis Category: Medical (3) Abdominal bloating: Code(s): R14.0 - Abdominal distension (gaseous) Category: Medical (4) Pre-op examination: Code(s): Z01.818 - Encounter for other preprocedural examination Category: Medical (5) Hepatic steatosis: Comment: DOES NOT REQUIRE GI FOLLOW-UP CAN BE MONITORED BY THE PRIMARY CARE PROVIDER AND IF TRANSAMINASES SHOULD RISE GREATER THAN 2 TIMES THE UPPER NORMAL LIMIT THEN RETURN TO OUR SERVICES Laboratory Tests 08/27/1908/13/24 11:4609:35 WBC 4.9 Hgb 13.0 Hct 38.1 Plt Count 225 Estimated GFR > 60 Total Bilirubin 0.4 AST 24 ALT 18 Alkaline Phosphatase 75 TSH 0.79 Hep Bs Antigen Negative Hep Bs Antibody REACTIVE Hep B Core Total Ab Nonreactive Hepatitis C Ab (EIA) NONREACTIVE HIV 1&2 Ab/P24 Ag [address] Nonreactive CT ABD AND PELVIS 05/15/24 IMPRESSION: 1. A cause for the patient's abdominal pain has not been found. 2. Incidental note made of hepatic steatosis, benign hepatic cysts which need no additional follow-up and a tiny periumbilical hernia containing only fat Code(s): K76.0 - Fatty (change of) liver, not elsewhere classified Category: Medical Plan [place] [facility]lette Live PATIENT HAS BEEN LOST FOLLOW-UP SINCE 08/2021 She says she continues on the omeprazole and simethicone but is unsure if she is taking magnesium. She continues to feel quite bloated, and it is worse with eating greasy foods or grains. She says she was sent here by the ER because of fatty liver, however, she has normal transaminases and this can be followed by her PCP with encouragement of wt loss - she does not drink ETOH adn no NIDDM. She IS due for a colonoscopy and we will get this ordered, the last in 2019 she has poor prep. There are no prior problems with anesthesia or sedation. There are no infectious disease problems. There is no known family history of colon cancer or polyps. ROV after colonoscopy. Orders: Orders Colonoscopy - GI Use Only 06/30/24 Z01.818 - Encounter for other preprocedural examination Medications: New omeprazole 20 mg PO DAILY 30 caps 6RF peg 3350-electrolytes 236-22.74-6.74 -5.86 gram (Golytely) until fecal effluent is clear; do not exceed a total volume of 2,000 mL 240 mL PO Q10M 4,000 mL 0RF 1 day Z12.11 - Encounter for screening for malignant neoplasm of colon bisacodyl (Dulcolax (bisacodyl)) 10 mg (2 x 5 mg) PO BEDTIME 4 tabs 0RF 2 days Refilled simethicone (Gas Relief (simethicone)) 180 mg PO TID 90 caps 6RF abdominal distention 30 days R14.0 - Abdominal distension (gaseous) Coding Level of Care Code Est Pt Level 4 (54931) Diagnoses Constipation K59.00 GERD (gastroesophageal reflux disease) K21.9 Abdominal bloating R14.0 Pre-op examination Z01.818 Hepatic steatosis K76.0 Time Spent (min) 33
[2024-06-30 16:24] VITALS: BP 108/58; PULSE 78; RESP 20; O2SAT 97
== END 2024-06-30 16:44 | disposition home or self-care (01) ==
PROVIDERS: PCP Internal Medicine; Visit Provider Nurse Practitioner
DX: K59.00 Constipation, unspecified (principal); K21.9 Gastro-esophageal reflux disease without esophagitis; R14.0 Abdominal distension (gaseous); Z01.818 Encounter for other preprocedural examination; K76.0 Fatty (change of) liver, not elsewhere classified
CPT/HCPCS: 99214

== ENCOUNTER → 2024-06-30 15:56 | Outpatient (BNVA) | payer MEDICAID, SELFPAY | PROVIDERS: PCP Internal Medicine; Visit Provider Nurse Practitioner | DX: Z01.818 Encounter for other preprocedural examination (principal); K59.00 Constipation, unspecified; K21.9 Gastro-esophageal reflux disease without esophagitis; K76.89 Other specified diseases of liver; K76.0 Fatty (change of) liver, not elsewhere classified; R10.9 Unspecified abdominal pain; R14.0 Abdominal distension (gaseous) | CPT/HCPCS: 99212 ==

== ENCOUNTER → 2024-07-28 08:40 | Outpatient (REF) | payer MEDICAID, SELFPAY ==
--- NOTE | 2024-07-28 08:46 | CA_ITS ---
Transthoracic Echocardiogram Patient (Last, First, Middle): Tanna Hinton, Gender: Female Date of : 1975 Age: 48 Procedure Date: 07/28/2024 Procedure Type: Transthoracic Echocardiogram Location: OP Height: 154.94 cm Weight: 107.05 kg BSA: 2.03 m2 Heart Rate: bpm BP: 134 / 80 mmHg Assistant Professor Of History: Referring MD: Zulema Silva MD Supervisor Public Health Nursing: Espinoza Milton MD Symptoms: R01.1 MURMUR Study Quality: Good ECG Rhythm: Sinus Conclusions: - 1. Normal LV systolic and diastolic function with LVEF of 60 65% 2. Trivial aortic regurgitation 3. Normal RV systolic pressure 4. No gross pericardial effusion Findings Left Ventricle Normal left ventricular size, thickness, and systolic function. The visually estimated ejection fraction is between 60-65%. Spectral Doppler is indicative of a normal filling pattern. Right Ventricle Normal right ventricular cavity size and systolic function. Atria The left atrium is likely dilated. There is no evidence of interatrial shunt. The right atrium is normal in size. Aortic Valve The aortic valve structure and function is likely normal. There is no aortic valve stenosis. There is trace (trivial) aortic valve regurgitation. Mitral Valve Normal mitral valve structure and function. There is trace mitral valve regurgitation. There is no mitral valve stenosis. Pulmonic Valve The pulmonic valve is likely normal. Tricuspid Valve Normal tricuspid valve structure. There is trace tricuspid valve regurgitation. The right ventricular systolic pressure is normal. The right ventricular systolic pressure is 23 mmHg. Normal right atrial pressure. There is no evidence of pulmonary hypertension. Great Vessels All visible segments of the aorta are normal in size. The pulmonary artery was not well visualized. There is no dilatation of the ascending aorta measuring 2.80 cm. Venous The inferior vena cava is normal in size and collapses greater than 50% with inspiration. Pericardium/Pleural There is no evidence of pericardial effusion. Prior Study Comparison No significant change compared to prior study dated: 10/18/2021. Measurements 2D Linear Measurements IVSd: 0.99 0.6-0.9/0.6-1.0 cm LVIDd: 4.89 3.9-5.3/4.2-5.9 cm LVIDd Index: 2.41 2.4-3.2/2.2-3.1 cm/m2 LVIDs: 3.00 2.0-3.6 cm LVPWd: 0.98 0.7-1.1 cm Ao Root: 3.10 2.1-3.5 cm LA Diam: 4.00 2.7-3.8/3.0-4.0 cm LAIDs Index: 1.97 1.5-2.3 cm/m2 LV Mass: 213.99 67-162/88-224 g LV Mass Index: 105.41 43-95/49-115 g/m2 LVOT Diam: 2.00 3.0+(-)1.3 cm 2D Systolic Function EF 4C: 63.20 >55% EF 2C: 53.90 >55% EF BiP: 59.40 >55% Mitral Valve MV Pk E: 0.94 MV PK A: 0.83 MV Decel Time: 167.00 E/A: 1.10 E'Lateral: 10.80 E'Medial: 7.51 E/E' Med: 12.50 E/E' Lat: 8.70 PHT: 49.00 MVA PHT: 4.49 Decel [place]: 5.61 Aortic Valve AoV Pk Devendra: 1.96 AoV Mn Devendra: 1.29 AoV VTI: 0.42 AoV Pk Grad: 15.00 Aov Mn Grad: 8.00 LUCIANA Cont.VTI: 2.11 LVOT LVOT Pk Devendra: 1.18 LVOT Mn Devendra: 0.90 LVOT VTI: 0.28 LVOT Pk Grad: 6.00 LVOT Mn Grad: 4.00 LVOT Diam: 2.00 LVOT Area: 3.14 Diastolic Function MV Pk E: 0.94 MV Pk A: 0.83 E/A: 1.10 E'Medial: 7.51 E/E' Med: 12.50 E' Laterial: 10.80 E/E' Lat: 8.70 Right Ventricle TAPSE (mm): 30.00 TVS' Devendra: 13.00 Tricuspid Valve TR Pk Devendra: 2.21 TR Pk Grad: 20.00 RA Press: 3.00 RVSP: 23.00 Great Vessels Aorta Ao Root-2D: 3.10 2.0-3.7 cm Ao Asc: 2.80 2.1-3.4 cm Ao Arch: 2.80 Pulmonary Valve PV Pk Devendra: 1.00 Peak PV Grad: 4.00 Updated in Other Vendor System with Status of Final Espinoza Milton MD electronically signed on 07/28/2024 11:06:14 AM with status of Final
== END ==
LOC: HO.CARD 08:40
PROVIDERS: Absent Provider Internal Medicine; PCP Internal Medicine; Visit Provider Pediatrics
DX: R01.1 Cardiac murmur, unspecified (principal)
CPT/HCPCS: 93306

== ENCOUNTER → 2024-07-28 08:46 | Outpatient (BNV) | payer MEDICAID, SELFPAY | PROVIDERS: Absent Provider Internal Medicine; PCP Internal Medicine; Visit Provider Internal Medicine Cardiovascular Disease | DX: I35.1 Nonrheumatic aortic (valve) insufficiency (principal) | CPT/HCPCS: 93306 ==

== ENCOUNTER 2024-10-28 07:23 | Day surgery (SDC) | payer MEDICAID, SELFPAY ==
--- OUTSIDE RECORDS SUMMARY | 2024-10-28 07:26 | XMS_ITS | Data Portability ---
Author Organization [place] - [facility], Allergy Address [address] [place] [id number] Care Team Providers Care Data Communications Analyst Name Role Phone KRISTA PRATHER Primary Care Provider KRISTA PRATHER Referring Provider [phone] Assessment Encounter Date Assessment Date Assessment LastModified by Organization Details LastModified Time 04/28/2024 04/28/2024 Still notes nasa l congestion despite antihistamines and nasal sprays. Allergy testing trees, grass, mold and dust. CT today no sinus disease with lucency around left molar At this point she would like to hold off on any surgical intervention or resuming immunotherapy. We discussed with an air transportation provider #[phone] but I would recommend dental evaluation for the abnormality of the left maxillary molar. Suggest continuing FP and adding Astelin [email or web address] Not available 04/28/2024 14:58:22 Plan of Treatment Reminders Order Date Submit Date Provider Last Modified By Organization Details Last Modified Time Details Appointments None recorded . Lab None recorded . Referral None recorded . Procedures None recorded . Surgeries None recorded . Imaging CT, sinuses, w/o contrast 2023 024 [facility], [address] [place] [address], [place], [address], 15:00:35 Medication Orders azelasti ne 137 mcg (0.1 %) nasal spray 2023 024 [facility], [address] , [place], [place], [phone], 10:25:16 Patient TargetsNo targets recorded. Patient InstructionsNo instructions recorded. Reason for Referral None Reported. Results Created Date Observation Date Name Description Value Unit Range Abnormal Flag Note LastModifiedBy Organization Detail LastModifiedTime 04/28/20 CT, sinus es, w/o contr ast No observ ation record ed. [facility] [address], [address], 04/28/2024 14:58:59 05/05/20 24 04/28/2024 CT, sinus es, w/o contr ast No observ ation record ed. [facility] Of [address], [address], 05/05/2024 08:26:29 07/06/20 24 11/23/2021 imagi ng/di agnos tic resul t No observ ation record ed. [email or web address] Not Available 21:49:45 07/06/20 24 01/20/2023 imagi ng/di agnos tic resul t No observ ation record ed. [email or web address] Not Available 21:50:20 07/06/20 24 11/03/2019 imagi ng/di agnos tic resul t No observ ation record ed. [email or web address] Not Available 21:53:39 07/06/20 24 01/20/2023 audio gram No observ ation record ed. [email or web address] Not Available 21:54:05 Result Notes None recorded. Problems Name Problem SNOMED Code Status Onset Date Resolution Date Notes Provider Name and Address Organization Details Recorded Time Chronic pansinusi tis 30611934 Active 2015 Chronic pansinusit is; Note: Date Diagnosed: 08/14/2016 4:18 PM (J32.4) Not Available [facility] 02:13:38 Mild intermitt ent asthma 351318614 Active 2019 Mild intermitte nt asthma, uncomplica armando; Note: Date Diagnosed: 10/19/2020 9:38 AM (J45.20) Not Available [facility] 02:15:41 Allergic rhinitis 12332958 Active 2020 Allergic rhinitis: Due to other allergen; Note: Date Diagnosed: 05/18/2021 2:33 PM (477.8) Note: Date Diagnosed: 05/18/2021 2:33 PM (477.8) Allergic rhinitis: Due to other allergen; Note: Date Diagnosed: 04/19/2021 1:42 PM (477.8) Note: Date Diagnosed: 04/19/2021 1:42 PM (477.8) ; Start Date : 04/19/2021 Allergic rhinitis: Due to other allergen; Note: Date Diagnosed: 02/15/2021 1:41 PM (477.8) Note: Date Diagnosed: 02/15/2021 1:41 PM (477.8) ; Start Date : 02/15/2021 Allergic rhinitis: Due to other allergen; Note: Date Diagnosed: 01/18/2021 3:35 PM (477.8) Note: Date Diagnosed: 01/18/2021 3:35 PM (477.8) ; Start Date : 01/18/2021 Allergic rhinitis: Due to other allergen; Note: Date Diagnosed: 11/28/2020 4:09 PM (477.8) Note: Date Diagnosed: 11/28/2020 4:09 PM (477.8) ; Start Date : 11/28/2020 Allergic rhinitis: Due to other allergen; Note: Date Diagnosed: 11/21/2020 4:10 PM (477.8) Note: Date Diagnosed: 11/21/2020 4:10 PM (477.8) ; Start Date : 11/21/2020 Allergic rhinitis: Due to other allergen; Note: Date Diagnosed: 10/19/2020 10:05 AM (477.8) Note: Date Diagnosed: 10/19/2020 10:05 AM (477.8) ; Start Date : 10/19/2020 Allergic rhinitis: Due to other allergen; Note: Date Diagnosed: 09/05/2020 3:10 PM (477.8) Note: Date Diagnosed: 09/05/2020 3:10 PM (477.8) ; Start Date : 09/05/2020 Allergic rhinitis: Due to other allergen; Note: Date Diagnosed: 08/22/2020 1:51 PM (477.8) Note: Date Diagnosed: 08/22/2020 1:51 PM (477.8) ; Start Date : 08/22/2020 Allergic rhinitis: Due to other allergen; Note: Date Diagnosed: 08/11/2020 2:37 PM (477.8) Note: Date Diagnosed: 08/11/2020 2:37 PM (477.8) ; Start Date : 08/11/2020 Allergic rhinitis: Due to other allergen; Note: Date Diagnosed: 07/27/2020 2:08 PM (477.8) Note: Date Diagnosed: 07/27/2020 2:08 PM (477.8) ; Start Date : 07/27/2020 Allergic rhinitis: Due to other allergen; Note: Date Diagnosed: 06/22/2020 3:18 PM (477.8) Note: Date Diagnosed: 06/22/2020 3:18 PM (477.8) ; Start Date : 06/22/2020 Allergic rhinitis: Due to other allergen; Note: Date Diagnosed: 03/23/2020 1:51 PM (477.8) Note: Date Diagnosed: 03/23/2020 1:51 PM (477.8) ; Start Date : 03/23/2020 Allergic rhinitis: Due to other allergen; Note: Date Diagnosed: 02/03/2020 2:56 PM (477.8) Note: Date Diagnosed: 02/03/2020 2:56 PM (477.8) ; Start Date : 02/03/2020 Allergic rhinitis: Due to other allergen; Note: Date Diagnosed: 01/20/2020 1:48 PM (477.8) Note: Date Diagnosed: 01/20/2020 1:48 PM (477.8) ; Start Date : 01/20/2020 Allergic rhinitis: Due to other allergen; Note: Date Diagnosed: 12/23/2019 1:51 PM (477.8) Note: Date Diagnosed: 12/23/2019 1:51 PM (477.8) ; Start Date : 12/23/2019 Allergic rhinitis: Due to other allergen; Note: Date Diagnosed: 12/07/2019 11:56 AM (477.8) Note: Date Diagnosed: 12/07/2019 11:56 AM (477.8) ; Start Date : 12/07/2019 Allergic rhinitis: Due to other allergen; Note: Date Diagnosed: 11/23/2019 8:24 AM (477.8) Note: Date Diagnosed: 11/23/2019 8:24 AM (477.8) ; Start Date : 11/23/2019 Allergic rhinitis: Due to other allergen; Note: Date Diagnosed: 10/26/2019 8:12 AM (477.8) Note: Date Diagnosed: 10/26/2019 8:12 AM (477.8) ; Start Date : 10/26/2019 Allergic rhinitis: Due to other allergen; Note: Date Diagnosed: 10/12/2019 3:49 PM (477.8) Note: Date Diagnosed: 10/12/2019 3:49 PM (477.8) ; Start Date : 10/12/2019 Allergic rhinitis: Due to other allergen; Note: Date Diagnosed: 09/28/2019 8:15 AM (477.8) Note: Date Diagnosed: 09/28/2019 8:15 AM (477.8) ; Start Date : 09/28/2019 Allergic rhinitis: Due to other allergen; Note: Date Diagnosed: 09/14/2019 8:22 AM (477.8) Note: Date Diagnosed: 09/14/2019 8:22 AM (477.8) ; Start Date : 09/14/2019 Allergic rhinitis: Due to other allergen; Note: Date Diagnosed: 08/31/2019 8:28 AM (477.8) Note: Date Diagnosed: 08/31/2019 8:28 AM (477.8) ; Start Date : 08/31/2019 Allergic rhinitis: Due to other allergen; Note: Date Diagnosed: 04/06/2019 10:34 AM (477.8) Note: Date Diagnosed Not Available [facility] 4 00:49:48 Abnormal auditory perceptio n 25009590 Active 2021 Other abnormal auditory perception s, bilateral; Note: Date Diagnosed: 11/23/2021 3:39 PM (H93.293) Not Available [facility] 4 02:15:15 Uncomplic ated mild persisten t asthma 738479661 Active 2016 Mild persistent asthma, uncomplica armando; Note: Date Diagnosed: 11/22/2016 4:41 PM (J45.30) Not Available [facility] 4 02:15:24 Acute upper respirato ry infection 36255791 Active 2017 Acute upper respirator y infection, unspecifie d; Note: Date Diagnosed: 12/03/2017 3:52 PM (J06.9) Not Available [facility] 4 02:15:56 Deviated nasal septum 249996554 Active 2023 BOB DOS SANTOS MD [address] [place] [address], [facility] [place], [address] , [facility] - [facility] 4 14:58:39 Hypertrop hy of nasal turbinate s 74119342 Active 2023 Hypertroph y of nasal turbinates ; Note: Date Diagnosed: 03/08/2024 11:33 AM (J34.3) Not Available [facility] 4 02:12:52 Problem Notes None recorded. Procedures Surgical History None recorded. Imaging Results Imaging Date Name Status LastModified by [facility] Details LastModified Time 04/28/2024 CT, sinuses, w/o contrast completed [facility] [address], [address], 04/28/2024 14:58:59 04/28/2024 CT, sinuses, w/o contrast completed [facility] [place] [address], [place], [address], 05/05/2024 08:26:29 11/23/2021 imaging/diagno stic result completed Information not available 07/06/2024 21:49:45 01/20/2023 imaging/diagno stic result completed Information not available 07/06/2024 21:50:20 11/03/2019 imaging/diagno stic result completed Information not available 07/06/2024 21:53:39 01/20/2023 audiogram completed Information not available 07/06/2024 21:54:05 Procedure Notes None recorded. Medical Equipment None Reported. Medications Name Sig Start Date Stop Date Status Note LastModified by Organization Details LastModified Time losartan 50 mg tablet active Medicati on ID: [id number] B rand Name: losartan Send Method: E-Prescr ibed Sub s Allowed: subs OK Speci al Instruct ion: TAKE ONE TABLET DAILY Me dication GenericN [place]: losartan Not Available Not Available Not Available oxybutyni n chloride ER 10 mg tablet,ex tended release 24 hr 07/27 completed Medicati on ID: [id number] D uration Value: 30 Reason: () Brand Name: oxybutyn in chloride Send Method: E-Prescr ibed Sub s Allowed: subs OK Speci al Instruct ion: TAKE ONE TABLET BY MOUTH EVERY DAY Medi cationGe nericNam e: oxybutyn in chloride Not Available Not Available Not Available atenolol 25 mg tablet 03/11 completed Medicati on ID: [id number] B rand Name: atenolol Send Method: E-Prescr ibed Sub s Allowed: subs OK Medic ationGen ericName : atenolol Not Available Not Available Not Available Zyrtec 10 mg tablet 03/22 completed Medicati on ID: [id number] B rand Name: Zyrtec S end Method: E-Prescr ibed Sub s Allowed: subs OK Speci al Instruct ion: Take 1 tablet by mouth every day Medi cationGe nericNam e: Zyrtec Not Available Not Available Not Available amlodipin e 5 mg tablet 01/20 completed Medicati on ID: [id number] B rand Name: amlodipi ne Send Method: E-Prescr ibed Sub s Allowed: subs OK Medic ationGen ericName : amlodipi ne Not Available Not Available Not Available magnesium oxide 400 mg (241.3 mg magnesium ) tablet 01/20 completed Medicati on ID: [id number] D uration Value: 30 Brand Name: magnesiu m oxide Se nd Method: E-Prescr ibed Sub s Allowed: subs OK Speci al Instruct ion: TAKE ONE TABLET BY MOUTH EVERY DAY DIRECTED Medicat ionGener icName: magnesiu m oxide Not Available Not Available Not Available amlodipin e 10 mg tablet 03/22 completed Medicati on ID: [id number] B rand Name: amlodipi ne Send Method: E-Prescr ibed Sub s Allowed: subs OK Speci al Instruct ion: TAKE ONE TABLET BY MOUTH EVERY DAY Medi cationGe nericNam e: amlodipi ne Not Available Not Available Not Available benzonata te 100 mg capsule 03/22 completed Medicati on ID: [id number] B rand Name: benzonat ate Send Method: E-Prescr ibed Sub s Allowed: subs OK Speci al Instruct ion: TAKE ONE CAPSULE THREE TIMES DAILY NEEDED FOR COUGH Me dication GenericN luc[place]: benzonat ate Not Available Not Available Not Available Banophen 25 mg tablet 03/22 completed Medicati on ID: [id number] B rand Name: Banophen Send Method: E-Prescr ibed Sub s Allowed: subs OK Speci al Instruct ion: TAKE ONE TABLET AT BEDTIME NEEDED FOR COUGH Me dication GenericN luc[place]: Banophen Not Available Not Available Not Available monteluka st 10 mg tablet Take 1 tablet by mouth 08/12 completed Medicati on ID: [id number] R niharika: () Brand Name: monteluk ast Send Method: E-Prescr ibed Sub s Allowed: subs OK Speci al Instruct ion: Take 1 tablet by mouth every day in the evening Medicati onGeneri cName: monteluk ast Not Available Not Available Not Available hydrochlo rothiazid e 25 mg tablet 1 tablet by mouth 2015 active Medicati on ID: [id number] D uration Value: 30 Brand Name: hydrochl orothiaz manny Send Method: E-Prescr ibed Sub s Allowed: subs OK Medic ationGen ericName : hydrochl orothiaz manny Not Available Not Available Not Available azelastin e 137 mcg (0.1 %) nasal spray Inhale 2 spray twice a day as directed 2023 active Not Available Not Available Not Avai lable Vitamin D2 1,250 mcg (50,000 unit) capsule 07/27 completed Medicati on ID: [id number] D uration Value: 28 Reason: () Brand Name: Vitamin D2 Send Method: E-Prescr ibed Sub s Allowed: subs OK Speci al Instruct ion: TAKE ONE CAPSULE EVERY WEEK FOR 12 WEEKS Me dication GenericN lucille: Vitamin D2 Not Available Not Available Not Available fluticaso ne propionat e 50 mcg/actua tion nasal spray,vani pension 2 puff into both nostrils 2019 active Medicati on ID: [id number] D uration Value: 30 Brand Name: fluticas one propiona te Send Method: E-Prescr ibed Sub s Allowed: subs OK Medic ationGen ericName : fluticas one propiona te Not Available Not Available Not Available naproxen 500 mg tablet 01/05 completed Medicati on ID: [id number] D uration Value: 10 Reason: () Brand Name: naproxen Send Method: E-Prescr ibed Sub s Allowed: subs OK Speci al Instruct ion: TAKE ONE TABLET BY MOUTH TWICE DAILY WITH FOOD Med icationG enericNa me: naproxen Not Available Not Available Not Available Vitamin D3 25 mcg (1,000 unit) capsule 07/27 completed Medicati on ID: [id number] R niharika: () Brand Name: Vitamin D3 Send Method: E-Prescr ibed Sub s Allowed: subs OK Medic ationGen ericName : Vitamin D3 Not Available Not Available Not Available ProAir HFA 90 mcg/actua tion aerosol inhaler 2 puff 03/31 completed Medicati on ID: [id number] D uration Value: 30 Prescri bed By Name: Marysol Alvarez nd Name: ProAir HFA Send Method: E-Prescr ibed Sub s Allowed: subs OK Medic ationGen ericName : ProAir HFA Not Available Not Available Not Available Fiber Laxative (methylce llulose) 500 mg tablet 01/20 completed Medicati on ID: [id number] D uration Value: 30 Brand Name: Fiber Laxative (methylc ellulo) Send Method: E-Prescr ibed Sub s Allowed: subs OK Speci al Instruct ion: TAKE TWO TABLETS DAILY WITH 8oz of WATER Me dication GenericN lucille: Fiber Laxative (methylc ellulo) Not Available Not Available Not Available cholecalc iferol (vitamin D3) 50 mcg (2,000 unit) capsule active Medicati on ID: [id number] B rand Name: cholecal ciferol (vitamin D3) Send Method: E-Prescr ibed Sub s Allowed: subs OK Speci al Instruct ion: TAKE ONE CAPSULE DAILY Me dication GenericN lucille: cholecal ciferol (vitamin D3) Not Available Not Available Not Available Toviaz 4 mg tablet,ex tended release 12/16 completed Medicati on ID: [id number] R niharika: () Brand Name: Toviaz S end Method: E-Prescr ibed Sub s Allowed: subs OK Medic ationGen ericName : Toviaz Not Available Not Available Not Available omeprazol e magnesium 20 mg capsule,d elayed release 2015 active Medicati on ID: [id number] B rand Name: omeprazo le magnesiu m Send Method: E-Prescr ibed Sub s Allowed: subs OK Medic ationGen ericName : omeprazo le magnesiu m Not Available Not Available Not Available EpiPen 2-Hunter 0.3 mg/0.3 mL injection , auto-inje ctor 1 pen injector intramus cularly 2016 active Medicati on ID: [id number] D uration Value: 180 Prescri bed By Name: Bob croft M.D. Bra nd Name: EpiPen 2-Hunter Se nd Method: E-Prescr ibed Sub s Allowed: subs OK Medic ationGen ericName : EpiPen 2-Hunter Not Available Not Available Not Available ferrous sulfate 220 mg (44 mg iron)/5 mL oral elixir 03/03 completed Medicati on ID: [id number] R niharika: () Brand Name: ferrous sulfate Send Method: E-Prescr ibed Sub s Allowed: subs OK Medic ationGen ericName : ferrous sulfate Not Available Not Available Not Available Tab-A-Vit e Multivita min w-iron 15 mg iron-400 mcg tablet 03/22 completed Medicati on ID: [id number] B rand Name: Tab-A-Vi te Multivit anton w-iron S end Method: E-Prescr ibed Sub s Allowed: subs OK Speci al Instruct ion: TAKE ONE TABLET DAILY Me dication GenericN lucille: Tab-A-Vi te Multivit anton w-iron Not Available Not Available Not Available Vitals Date Recorded Body height Body mass index (BMI) Body weight Provider Name and Address Organization Details Last Updated DateTime 04/28/2024 127 cm 64.7 kg/m2 102586.25 g Vadim Ferris [place] - [facility] 04/28/2024 14:45:47 Social History None recorded. Functional Status None recorded. Mental Status None recorded. Family History Nothing Reported. Medical History No medical history recorded. Gynecological HistoryNo gynecological history recorded. Obstetrics History GPAL:G 0 P 0 0 0 0 Past Encounters Encounter ID Performer Location Encounter Start Date Encounter Closed Date Diagnosis/Indication Diagnosis SNOMED-CT Code Diagnosis ICD10 Code 3679 BOB DOS SANTOS MD [facility] [address] [address] 04/28/2024 14:01:27 04/28/2024 15:00:34 Allergic rhinitis 70794350 J30.9 Deviated nasal septum 12 2342433 J34.2 Health Concerns Section Related Observation LastModified by Organization Detai ls LastModified Time None Recorded Concern Status LastModified by Organization Details LastModified Time None Recorded Advance Directives Directive None Recorded Payers Encounter Date Sequence Insurance Name Policy Number Policy Thomas Covered Member ID Thomas Member ID Guarantor Name 04/28/2024 1 [place] [facility] PL[facility] Tanna Hinton [id number] Tanna Hinton Notes Date Note Type Note Provider Name and Address Organization Details Recorded Time 04/28/2024 text/html Still notes nasa l congestion despite antihistamines and nasal sprays. Allergy testing trees, grass, mold and dust. CT today no sinus disease with lucency around left molar BOB WRAY MD [address] [place] [address], [address], [place] - [facility] 04/28/2024 15:00:10 OBGyn Episode No OBEpisode recorded.
[2024-10-28 07:50] VITALS: BP 119/76; PULSE 77; RESP 16; TEMP 36.8; O2SAT 95
[2024-10-28 07:57] VITALS: BMI 45.7
--- NOTE | 2024-10-28 08:00 | HO.ANESPROP2 ---
Documented by User: Renuka Mueller NP 10/27/24 09:22 HPI - Anesthesia Eval Consult details Narrative: 49yo F for Colonoscopy PMFSH Active Problems Active Problems: All Active Problems Hepatic steatosis (Acute) Pre-op examination (Acute) Diverticulosis (Acute) Perimenopause (Acute) Cervical cancer screening (Acute) History of endometrial hyperplasia (Acute) Abdominal bloating (Acute) Constipation (Acute) GERD (gastroesophageal reflux disease) (Acute) Hepatic cyst (Acute) Past Medical History Medical History (Updated 10/28/24 @ 07:53 by Lisa Mendez RN) Asthma HTN (hypertension) Family History Family History Father No problems noted. Mother HTN (hypertension) Surgical History Surgical History Hx of colonoscopy Social History Social History Household Members: None Housing: Apartment Alcohol intake: former Patient Tobacco Use Status: Never used Tobacco Advance Directives: No Advance Directives Information Provided: Yes Meds Allergies Allergy/AdvReac Type Severity Reaction Status Date / Time oxycodone Allergy Intermediate itchy Verified 10/28/24 07:53 Home Medications ?Medication ?Instructions ?Recorded ?Confirmed ?Last Taken ?Type albuterol sulfate 90 mcg/actuation inhalation 02/05/21 04/10/22 Unknown History aerosol inhaler cholecalciferol (vitamin D3) 50 50 mcg PO DAILY 02/05/21 04/10/22 Unknown History mcg (2,000 unit) capsule epinephrine 0.3 mg/0.3 mL IM DIRECTED 02/05/21 04/10/22 Unknown History injection, auto-injector ergocalciferol (vitamin D2) 1,250 1,250 mcg PO QWEEK 02/05/21 04/10/22 Unknown History mcg (50,000 unit) capsule hydrochlorothiazide 25 mg tablet 25 mg PO DAILY 02/05/21 04/10/22 Unknown History meclizine 25 mg tablet 25 mg PO DAILY PRN 02/05/21 04/10/22 Unknown History multivitamin-iron sulfate 15 1 tab PO DAILY 02/05/21 04/10/22 Unknown History mg-folic acid 400 mcg tablet losartan 50 mg tablet 50 mg PO QAM 12/11/24 Unknown History Exam Height,Weight and Vital Signs: Weight 107.501 kg Assessment and Plan Assessment Anesthesia Assessment: Chart Reviewed Documented by User: Ligia Ramirez DO 10/28/24 08:04 [facility] Past Medical History Medical History (Updated 10/28/24 @ 07:53 by Lisa Mendez RN) Asthma HTN (hypertension) Family History Family History Father No problems noted. Mother HTN (hypertension) Family history of problems with anesthesia: No Surgical History Surgical History Hx of colonoscopy History of Problems with Anesthesia: No Social History Social History Household Members: None Housing: Apartment Alcohol intake: former Patient Tobacco Use Status: Never used Tobacco Advance Directives: No Advance Directives Information Provided: Yes Meds Allergies Allergy/AdvReac Type Severity Reaction Status Date / Time oxycodone Allergy Intermediate itchy Verified 10/28/24 07:53 Home Medications ?Medication ?Instructions ?Recorded ?Confirmed ?Last Taken ?Type albuterol sulfate 90 mcg/actuation inhalation 02/05/21 04/10/22 Unknown History aerosol inhaler cholecalciferol (vitamin D3) 50 50 mcg PO DAILY 02/05/21 04/10/22 Unknown History mcg (2,000 unit) capsule epinephrine 0.3 mg/0.3 mL IM DIRECTED 02/05/21 04/10/22 Unknown History injection, auto-injector ergocalciferol (vitamin D2) 1,250 1,250 mcg PO QWEEK 02/05/21 04/10/22 Unknown History mcg (50,000 unit) capsule hydrochlorothiazide 25 mg tablet 25 mg PO DAILY 02/05/21 04/10/22 Unknown History meclizine 25 mg tablet 25 mg PO DAILY PRN 02/05/21 04/10/22 Unknown History multivitamin-iron sulfate 15 1 tab PO DAILY 02/05/21 04/10/22 Unknown History mg-folic acid 400 mcg tablet losartan 50 mg tablet 50 mg PO QAM 10/27/24 Unknown History Exam Exam Date and Time: 10/28/24 0800 Height,Weight and Vital Signs: Weight 107.501 kg Vital Signs Temperature 98.2 F 10/28/24 07:50 Pulse Rate 77 10/28/24 07:50 Respiratory Rate 16 10/28/24 07:50 Blood Pressure 119/76 10/28/24 07:50 Pulse Oximetry 95 10/28/24 07:50 Oxygen Delivery Method Room Air 10/28/24 07:50 Temperature 98.2 F 10/28/24 07:50 Pulse Rate 77 10/28/24 07:50 Respiratory Rate 16 10/28/24 07:50 Blood Pressure 119/76 10/28/24 07:50 Pulse Oximetry 95 10/28/24 07:50 Oxygen Delivery Method Room Air 10/28/24 07:50 Airway Mallampati Class: III TM Dist: >3cm Neck ROM: Full Loose/Missing/Broken Teeth: Yes (broken molar right upper jaw and pulled molar) Heart: S1S2 Lungs: CTAB Assessment and Plan Assessment Anesthesia Assessment: Anesthesia Plan Discussed and Chart Reviewed Final Anesthetic Review Family History of Problems with Anesthesia: No History of Problems with Anesthesia: No NPO: Yes ASA Class: II Final Preanesthetic Review: No Changes in Pt Med Stat, Meds/Allgs Chart Reviewed, Consent Obtained/Reviewed and Anes Risks/Benef Reviewed Patient Risk: Low Procedure Risk: Low Anesthetic Plan Anesthetic Plan: MAC: and Agree w/ Assess. and Plan Disposition: Standard PACU
[2024-10-28] MEDS: Lactated Ringers 1,000 ML 100 ML IVCONT (08:09)
--- NOTE | 2024-10-28 08:36 | MHC.SHP ---
Pre-Procedural Eval Section A - 24 Hr Update-Section A only Date of Service: 10/28/24 Section B - Complete if H&P > 30 days Chief Complaint: Abdominal distension (gaseous) Relevant Family History (Specify if Yes): No Relevant Social History: None Present Medications: see Short Stay Collaborative assessment Medical History: Significant History (Asthma HTN (hypertension)) History of Previous Operations: Relevant previous surgery/procedure and date(s) ( Hx of colonoscopy) Allergies: Allergies Allergy/AdvReac Type Severity Reaction Status Date / Time oxycodone Allergy Intermediate itchy Verified 10/28/24 07:53 Review of Systems Sugical H&P ROS: Negative: Constitution, Cardiovascular, Respiratory, Neurological, Psychiatric, Hem-Onc, Allergic/Immunologic, Gastrointestinal, Genitourinary, Musculoskeletal, Integumentary, Endocrine and Eyes/Ears/Nose/Throat Exam Surgical H&P Exam: Normal: HEENT, Normal: Heart, Normal: Lungs, Normal: Extremities, Normal: Abdomen, Normal: Skin and Normal: Neurological Plan Diagnosis/Plan: Unchanged I have reviewed the history and physical and performed a pertinent physical examination on my patient. No changes have occurred unless specified. Time Spent With Patient Time: Total time managing care of this patient today ____ minutes.
--- NOTE | 2024-10-28 09:05 | HO.OPN-COLON ---
Colonoscopy Operative Note Operative Note Date of Service: 10/28/24 Narrative: Operative Information Procedure Description: Colonoscopy Indication: screening Anesthesia: MAC COLONOSCOPY Instrument: Olympus variable stiffness pediatric scope 190L Colonoscopy Monitoring: Vital signs and clinical assessment, continuous EKG monitoring, Pulse oximetry, Carbon Dioxide monitoring and blood pressure monitoring were done throughout the procedure. Colon withdrawal time was 6 minutes. Procedure: The patient was placed in the left lateral decubitis position and pre-procedure medications were administered. After a digital rectal examination of the ano-rectum, the video colonoscope was inserted into the rectum and advanced through the colon to the cecum/TI. The colonoscope was slowly withdrawn in a retrograde panoramic fashion and the colon mucosa was carefully examined including a retroflexed view of the rectum. Findings and interventions are described below. Procedure Difficulty: easy Findings: Terminal Ileum-not seen Cecum:not well seen due to prep Ascending Colon: normal Transverse Colon -normal Descending Colon:normal Sigmoid Colon: normal Rectum: Retroflexion with small internal hemorrhoids seen, grade I Anorectum - normal Intervention: none Colon preparation: [place] Bowel Preparation Scale Right colon; 1 Transverse colon: 1-2 Left colon; 1-2 (0 = Unprepared colon segment with mucosa not seen due to solid stool that cannot be cleared. 1 = Portion of mucosa of the colon segment seen, but other areas of the colon segment not well seen due to staining, residual stool and/or opaque liquid. 2 = Minor amount of residual staining, small fragments of stool and/or opaque liquid, but mucosa of colon segment seen well. 3 = Entire mucosa of colon segment seen well with no residual staining, small fragments of stool or opaque liquid) Impression and Post Procedure Diagnosis: internal hemorrhoids Plan: High fiber diet leaflet Avoid straining at stool, epsom salts and sitz bath, anusol supps or cream Repeat Colonoscopy in 6 months or earlier if clinically indicated --next time ensure compliance with prep and maybe 2 d of clear Above findings were reviewed with the patient and relevant handouts were provided if indicated.
[2024-10-28 09:11] VITALS: BP 107/65; PULSE 90; RESP 16; TEMP 37.1; O2SAT 96
[2024-10-28 09:26] VITALS: BP 147/82; PULSE 74; RESP 18; TEMP 36.6; O2SAT 97
== END 2024-10-28 09:57 | disposition home or self-care (01) ==
PROVIDERS: PCP Internal Medicine; Visit Provider Internal Medicine Gastroenterology
PROC: 0DJD8ZZ Inspection of Lower Intestinal Tract, Via Natural or Artificial Opening Endoscopic (ICD-10-PCS; CPT 45378; principal; 2024-10-28 08:20)
DX: Z12.11 Encounter for screening for malignant neoplasm of colon (principal); K64.0 First degree hemorrhoids; K21.9 Gastro-esophageal reflux disease without esophagitis; R14.0 Abdominal distension (gaseous); K59.00 Constipation, unspecified; K76.0 Fatty (change of) liver, not elsewhere classified; I10 Essential (primary) hypertension; Z79.899 Other long term (current) drug therapy; Z88.5 Allergy status to narcotic agent
CPT/HCPCS: 45378; J2003; J2704

== ENCOUNTER → 2024-10-28 07:23 | Outpatient (BNV) | payer MEDICAID, SELFPAY | PROVIDERS: PCP Internal Medicine; Visit Provider Internal Medicine Gastroenterology | DX: Z12.11 Encounter for screening for malignant neoplasm of colon (principal); K64.0 First degree hemorrhoids; Z91.199 Patient's noncompliance with other medical treatment and regimen due to unspecified reason | CPT/HCPCS: 45378 ==

== ENCOUNTER 2024-11-05 12:13 | Outpatient (AMB) | payer MEDICAID, SELFPAY ==
--- NOTE | 2024-11-05 12:15 | A.OFFVIS_ITS ---
Vital Signs 11/05/24 12:22 Height 5 ft 1 in Weight 243 lb BMI 45.9 BP 124/75 Blood Pressure Location Lt brachial Position Sitting Pulse 74 Intake Visit Reasons: s/p colon Intake Note: Tanna presents in follow up of colonoscopy. CC: Patient c/o abdominal bloating after eating certain things. Patient reports that she gets the sensation to have a BM and when she goes only a small amount comes out. [employer] Sten[employer] Required: Yes Accompanied by: Self / Same As Patient Allergies oxycodone Allergy (Intermediate, Verified 11/05/24 12:28) itchy HPI HPI s/p colon: Details: Assessment & Plan (1) Constipation: Code(s): K59.00 - Constipation, unspecified Category: Medical (2) GERD (gastroesophageal reflux disease): Code(s): K21.9 - Gastro-esophageal reflux disease without esophagitis Category: Medical (3) Abdominal bloating: Code(s): R14.0 - Abdominal distension (gaseous) Category: Medical (4) Pre-op examination: Code(s): Z01.818 - Encounter for other preprocedural examination Category: Medical (5) Hepatic steatosis: Comment: DOES NOT REQUIRE GI FOLLOW-UP CAN BE MONITORED BY THE PRIMARY CARE PROVIDER AND IF TRANSAMINASES SHOULD RISE GREATER THAN 2 TIMES THE UPPER NORMAL LIMIT THEN RETURN TO OUR SERVICES Laboratory Tests 08/27/1908/13/24 11:4609:[id number] WBC 4.9 Hgb 13.0 Hct 38.1 Plt Count 225 Estimated GFR > 60 Total Bilirubin 0.4 AST 24 ALT 18 Alkaline Phosphatase 75 TSH 0.79 Hep Bs Antigen Negative Hep Bs Antibody REACTIVE Hep B Core Total Ab Nonreactive Hepatitis C Ab (EIA) NONREACTIVE HIV 1&2 Ab/P24 Ag [address] Nonreactive CT ABD AND PELVIS 05/15/24 IMPRESSION: 1. A cause for the patient's abdominal pain has not been found. 2. Incidental note made of hepatic steatosis, benign hepatic cysts which need no additional follow-up and a tiny periumbilical hernia containing only fat Code(s): K76.0 - Fatty (change of) liver, not elsewhere classified Category: Medical Plan [facility] #[facility] PATIENT HAS BEEN LOST FOLLOW-UP SINCE 08/2021 She says she continues on the omeprazole and simethicone but is unsure if she is taking magnesium. She continues to feel quite bloated, and it is worse with eating greasy foods or grains. She says she was sent here by the ER because of fatty liver, however, she has normal transaminases and this can be followed by her PCP with encouragement of wt loss - she does not drink ETOH adn no NIDDM. She IS due for a colonoscopy and we will get this ordered, the last in 2019 she has poor prep. There are no prior problems with anesthesia or sedation. There are no infectious disease problems. There is no known family history of colon cancer or polyps. ROV after colonoscopy. Orders: Orders Colonoscopy - GI Use Only 06/30/24 Z01.818 - Encounter for other preprocedural examination Medications: New omeprazole 20 mg PO DAILY 30 caps 6RF peg 3350-electrolytes 236-22.74-6.74 -5.86 gram (Golytely) until fecal effluent is clear; do not exceed a total volume of 2,000 mL 240 mL PO Q10M 4,000 mL 0RF 1 day Z12.11 - Encounter for screening for malignant neoplasm of colon bisacodyl (Dulcolax (bisacodyl)) 10 mg (2 x 5 mg) PO BEDTIME 4 tabs 0RF 2 days Refilled simethicone (Gas Relief (simethicone)) 180 mg PO TID 90 caps 6RF abdominal distention 30 days R14.0 - Abdominal distension (gaseous) COLONOSCOPY 10/28/24 Findings: Terminal Ileum-not seen Cecum:not well seen due to prep Ascending Colon: normal Transverse Colon -normal Descending Colon:normal Sigmoid Colon: normal Rectum: Retroflexion with small internal hemorrhoids seen, grade I Anorectum - normal Intervention: none Impression and Post Procedure Diagnosis: internal hemorrhoids Plan: High fiber diet leaflet Avoid straining at stool, epsom salts and sitz bath, anusol supps or cream Repeat Colonoscopy in 6 months or earlier if clinically indicated --next time ensure compliance with prep and maybe 2 d of clear TODAY'S VISIT MICRONESIAN #[id number] [place]. The procedure needs to be repeated in 6 months due to poor prep. The procedure was well tolerated. The results were explained and the patient is agreeable to the follow-up interval as stated. The bowel pattern has returned to normal. Education was provided to tell any 1st degree relatives about their findings to be sure that they are screened by age 45. Educated that they will be put on a recall list when it is time for their repeat scope but should they move out of state or away from the hospital they will need to remember along with their primary to repeat the procedure in a timely fashion to avoid any adverse complications. She denies having any trouble with the prep, but with exploration she is not a big fluid drinker. She does nto drink sodas or juices r/t GERD, so we explore other drinks she may want to try including water. She says she continues on the omeprazole and simethicone She requests and EGD, saying I have not had one since n2014 but she does not have any sx that warrant this, so I explain that this is not done as a screening procedure. She had an unremarkable endoscopy in 2018. ROV 6 mos. [facility] Medical History (Updated 10/28/24 @ 07:53 by Lisa Mendez RN) Asthma HTN (hypertension) Surgical History Hx of colonoscopy Family History Father No problems noted. Mother HTN (hypertension) Social History Household Members: None Housing: Apartment Are you a primary rehab care assistant to a significant other at home: No Do you presently have visiting nurse or other home services: No Alcohol intake: former Patient Tobacco Use Status: Never used Tobacco Female Reproductive History Menstrual Age of Menarche: 13 Review of Systems Const Denies fatigue, Denies fever(s), Denies night sweats, Denies poor appetite and Denies weight loss ENT Reports Normal hearing present, Denies dental pain, Denies dysphagia, Denies hearing loss, Denies mouth pain, Denies odynophagia, Denies throat swelling, Denies tongue swelling and Reports other (Dentition adequate) Card Reports no additional complaints Resp Reports no additional complaints GI Details: Denies abdominal pain, Denies melena, Denies bloating, Denies hematochezia, Denies constipation, Denies GI cramping, Denies dysphagia, Denies excessive flatus, Denies early satiety, Reports heartburn, Denies diarrhea, Denies nausea, Denies odynophagia, Denies vomiting and Denies hematemesis Skin/Breast Denies pruritus, Denies lesions, Denies rash and Denies jaundice Neuro Reports Normal hearing present and Denies Abnormal speech present Endo Denies fatigue Aller/Immun Denies throat swelling and Denies tongue swelling Physical Exam Vital Signs: Last Vital Signs Pulse 74 11/05/24 12:22 BP 124/75 11/05/24 12:22 BMI result Body Mass Index 45.9 Const General: cooperative, no acute distress, well developed and well groomed Nutritional Appearance: well nourished and obese Orientation/consciousness: oriented to person, oriented to place and oriented to time Limitations: No language barrier HEENT Head: Yes normocephalic and Yes atraumatic Eyes General: appearance normal, both eyes and all related structures Pupils: Equal, round and reactive pupils present Neck Neck: Yes normal visual inspection and Yes no lymphadenopathy Thyroid: Thyroid normal Resp Effort & Inspection: normal respiratory effort and able to speak in complete sentences Auscultation: clear to auscultation bilaterally Cardio Rate: regular rate Rhythm: regular rhythm Heart sounds: Normal, physiologic split S2 sound present Peripheral pulses: radial pulses present and posterior tibial pulses present GI Inspection: No distended, Yes Abdominal panniculus present and Yes obesity Palpation (GI): Soft to palpation, nontender, no guarding, not rigid and No hepatosplenomegaly present Percussion: Yes normal to percussion Auscultation: normal bowel sounds Rectal Exam - Female: deferred Skin General skin exam: no rashes or lesions noted, turgor normal, skin not dry, no jaundice, No spider nevi and no striae Rashes: no rashes Nails: normal Neuro General: oriented to person, oriented to place and oriented to time Cranial nerves: Yes Equal, round and reactive pupils present and Yes Normal hearing present Speech: No Abnormal speech present Extrem General: Yes normal to inspection, No clubbing, No cyanosis and No edema Psych Appearance: grossly normal and well kempt Mental Status: mental status grossly normal Speech and movement: Normal speech and movement present Affect: normal affect Attitude: cooperative Thought process: Normal thought process present and not confabulating Thought content: Normal thought content present Insight: Limited insight present (Psych) Judgement: Limited judgement present (Psych) Results Reviewed Results Reviewed: COLONOSCOPY 10/28/24 Findings: Terminal Ileum-not seen Cecum:not well seen due to prep Ascending Colon: normal Transverse Colon -normal Descending Colon:normal Sigmoid Colon: normal Rectum: Retroflexion with small internal hemorrhoids seen, grade I Anorectum - normal Intervention: none Impression and Post Procedure Diagnosis: internal hemorrhoids Plan: High fiber diet leaflet Avoid straining at stool, epsom salts and sitz bath, anusol supps or cream Repeat Colonoscopy in 6 months or earlier if clinically indicated --next time ensure compliance with prep and maybe 2 d of clear Assessment & Plan Assessment & Plan (1) Constipation: Code(s): K59.00 - Constipation, unspecified Category: Medical (2) GERD (gastroesophageal reflux disease): Code(s): K21.9 - Gastro-esophageal reflux disease without esophagitis Category: Medical Plan MICRONESIAN #[id number] [place]. The procedure needs to be repeated in 6 months due to poor prep. The procedure was well tolerated. The results were explained and the patient is agreeable to the follow-up interval as stated. The bowel pattern has returned to normal. Education was provided to tell any 1st degree relatives about their findings to be sure that they are screened by age 45. Educated that they will be put on a recall list when it is time for their repeat scope but should they move out of state or away from the hospital they will need to remember along with their primary to repeat the procedure in a timely fashion to avoid any adverse complications. She denies having any trouble with the prep, but with exploration she is not a big fluid drinker. She does nto drink sodas or juices r/t GERD, so we explore other drinks she may want to try including water. She says she continues on the omeprazole and simethicone She requests and EGD, saying I have not had one since n2014 but she does not have any sx that warrant this, so I explain that this is not done as a screening procedure. She had an unremarkable endoscopy in 2018. ROV 6 mos. Medications: New peg 3350-electrolytes 236-22.74-6.74 -5.86 gram (Golytely) until fecal effluent is clear; do not exceed a total volume of 2,000 mL 240 mL PO Q10M 4,000 mL 0RF 1 day Z12.11 - Encounter for screening for malignant neoplasm of colon bisacodyl (Dulcolax (bisacodyl)) 10 mg (2 x 5 mg) PO BEDTIME 4 tabs 0RF 2 days Refilled omeprazole 20 mg PO DAILY 30 caps 6RF simethicone (Gas Relief (simethicone)) 180 mg PO TID 90 caps 6RF abdominal distention 30 days R14.0 - Abdominal distension (gaseous) Coding Level of Care Code Est Pt Level 4 (51037) Diagnoses Constipation K59.00 GERD (gastroesophageal reflux disease) K21.9 Time Spent (min) 33
--- OUTSIDE RECORDS SUMMARY | 2024-11-05 12:16 | XMS_ITS | Data Portability ---
Author Organization [place] - [facility], Allergy Address [address] [place] [address] Care Team Providers Care Fixer Boarding Room Name Role Phone KRISTA PRATHER Primary Care Provider KRISTA PRATHER Referring Provider [phone] Assessment Encounter Date Assessment Date Assessment LastModified by Organization Details LastModified Time 04/28/2024 04/28/2024 Still notes nasa l congestion despite antihistamines and nasal sprays. Allergy testing trees, grass, mold and dust. CT today no sinus disease with lucency around left molar At this point she would like to hold off on any surgical intervention or resuming immunotherapy. We discussed with an staff attorney #[id number] but I would recommend dental evaluation for [...] Imaging CT, sinuses, w/o contrast 2023 024 [facility], [address] [place] [address], [place], [address], 15:00:35 Medication Orders azelasti ne 137 mcg (0.1 %) nasal spray 2023 024 [facility], [address] , [place], [place], [id number], 10:25:16 Patient TargetsNo targets recorded. Patient InstructionsNo instructions recorded. Reason for Referral None Reported. Results Created Date Observation Date Name Description Value Unit Range Abnormal Flag Note LastModifiedBy Organization Detail LastModifiedTime 04/28/20 CT, sinus es, w/o contr ast No observ ation record ed. [facility] [place] [facility] Of [address], [address], 04/28/2024 14:58:59 05/05/20 24 04/28/2024 CT, sinus es, w/o contr ast No observ ation record ed. [facility] [place] [facility] Of [address], [address], 05/05/2024 08:26:29 07/06/20 24 11/23/2021 imagi ng/di [...] Organization Details Recorded Time Chronic pansinusi tis 43280380 Active 2015 Chronic pansinusit is; Note: Date Diagnosed: 08/14/2016 4:18 PM (J32.4) Not Available [facility] 02:13:38 Mild intermitt ent asthma 797996929 Active 2019 Mild intermitte nt asthma, uncomplica armando; Note: Date Diagnosed: 10/19/2020 9:38 AM (J45.20) Not Available [facility] 02:15:41 Allergic rhinitis 72207748 Active 2020 Allergic rhinitis: Due to other [...] AM (477.8) Note: Date Diagnosed Not Available [facility] 4 00:49:48 Abnormal auditory perceptio n 54750456 Active 2021 Other abnormal auditory perception s, bilateral; Note: Date Diagnosed: 11/23/2021 3:39 PM (H93.293) Not Available [facility] 4 02:15:15 Uncomplic ated mild persisten t asthma 342513804 Active 2016 Mild persistent asthma, uncomplica armando; Note: Date Diagnosed: 11/22/2016 4:41 PM (J45.30) Not Available [facility] 4 02:15:24 Acute upper respirato ry infection 12153162 Active 2017 Acute upper respirator y infection, unspecifie d; Note: Date Diagnosed: 12/03/2017 3:52 PM (J06.9) Not Available [facility] 4 02:15:56 Deviated nasal septum 578551866 Active 2023 BOB DOS SANTOS MD [address] [place] [address], [facility] [place], [address] , [facility] - [facility] 4 14:58:39 Hypertrop hy of nasal turbinate s 07018064 Active 2023 Hypertroph y of nasal turbinates ; Note: Date Diagnosed: 03/08/2024 11:33 AM (J34.3) Not Available [facility] 4 02:12:52 Problem Notes None recorded. Procedures Surgical History None recorded. Imaging Results Imaging Date Name Status LastModified by [facility] Details LastModified Time 04/28/2024 CT, sinuses, w/o contrast completed [facility] [place] [facility] [address], [address], 04/28/2024 14:58:59 04/28/2024 CT, sinuses, w/o contrast completed [facility] [place] [facility] [place] [address], [place], [address], 05/05/2024 08:26:29 11/23/2021 imaging/diagno stic result completed [...] 50 mg tablet active Medicati on ID: [id number] B rand Name: losartan Send Method: E-Prescr ibed Sub s Allowed: subs OK Speci al Instruct ion: TAKE ONE TABLET DAILY Me dication GenericN lucille: losartan Not Available Not Available Not Available oxybutyni n chloride ER 10 mg tablet,ex tended release 24 hr 07/27 completed Medicati on ID: [id number] D uration Value: 30 Reason: () Brand Name: oxybutyn in chloride Send Method: E-Prescr ibed Sub s Allowed: subs OK Speci al Instruct ion: TAKE ONE TABLET BY MOUTH EVERY DAY Medi cationGe nericNam e: oxybutyn in chloride Not Available Not Available Not Available atenolol 25 mg tablet 03/11 completed Medicati on ID: [id number] B rand Name: atenolol Send Method: E-Prescr ibed Sub s Allowed: subs OK Medic ationGen ericName : atenolol Not Available Not Available Not Available Zyrtec 10 mg tablet 03/22 completed Medicati on ID: [id number] B rand Name: Zyrtec S end Method: E-Prescr ibed Sub s Allowed: subs OK Speci al Instruct ion: Take 1 tablet by mouth every day Medi cationGe nericNam e: Zyrtec Not Available Not Available Not Available amlodipin e 5 mg tablet 01/20 completed Medicati on ID: [id number] B rand Name: amlodipi ne Send Method: E-Prescr ibed Sub s Allowed: subs OK Medic ationGen ericName : amlodipi ne Not Available Not Available Not Available magnesium oxide 400 mg (241.3 mg magnesium ) tablet 01/20 completed Medicati on ID: [id number] D uration Value: 30 Brand Name: magnesiu m oxide Se nd Method: E-Prescr ibed Sub s Allowed: subs OK Speci al Instruct ion: TAKE ONE TABLET BY MOUTH EVERY DAY DIRECTED Medicat ionGener icName: magnesiu m oxide Not Available Not Available Not Available amlodipin e 10 mg tablet 03/22 completed Medicati on ID: [id number] B rand Name: amlodipi ne Send Method: E-Prescr ibed Sub s Allowed: subs OK Speci al Instruct ion: TAKE ONE TABLET BY MOUTH EVERY DAY Medi cationGe nericNam e: amlodipi ne Not Available Not Available Not Available benzonata te 100 mg capsule 03/22 completed Medicati on ID: [id number] B rand Name: benzonat ate Send Method: E-Prescr ibed Sub s Allowed: subs OK Speci al Instruct ion: TAKE ONE CAPSULE THREE TIMES DAILY NEEDED FOR COUGH Me dication GenericN lucille: benzonat ate Not Available Not Available Not Available Banophen 25 mg tablet 03/22 completed Medicati on ID: [id number] B rand Name: Banophen Send Method: E-Prescr ibed Sub s Allowed: subs OK Speci al Instruct ion: TAKE ONE TABLET AT BEDTIME NEEDED FOR COUGH Me dication GenericN lucille: Banophen Not Available Not Available Not Available monteluka st 10 mg tablet Take 1 tablet by mouth 08/12 completed Medicati on ID: [id number] R niharika: () Brand Name: monteluk ast Send Method: E-Prescr ibed Sub s Allowed: subs OK Speci al Instruct ion: Take 1 tablet by mouth every day in the evening Medicati onGeneri cName: monteluk ast Not Available Not Available Not Available hydrochlo rothiazid e 25 mg tablet 1 tablet by mouth 2015 active Medicati on ID: [id number] D uration Value: 30 Brand Name: hydrochl [...] unit) capsule 07/27 completed Medicati on ID: [id number] D uration Value: 28 Reason: () Brand Name: Vitamin D2 Send Method: E-Prescr ibed Sub s Allowed: subs OK Speci al Instruct ion: TAKE ONE CAPSULE EVERY WEEK FOR 12 WEEKS Me dication GenericN lucille: Vitamin D2 Not Available Not Available Not Available fluticaso ne propionat e 50 mcg/actua tion nasal spray,vani pension 2 puff into both nostrils 2019 active Medicati on ID: [id number] D uration Value: 30 Brand Name: fluticas one propiona te Send Method: E-Prescr ibed Sub s Allowed: subs OK Medic ationGen ericName : fluticas one propiona te Not Available Not Available Not Available naproxen 500 mg tablet 01/05 completed Medicati on ID: [id number] D uration Value: 10 Reason: () Brand Name: naproxen Send Method: E-Prescr ibed Sub s Allowed: subs OK Speci al Instruct ion: TAKE ONE TABLET BY MOUTH TWICE DAILY WITH FOOD Med icationG enericNa me: naproxen Not Available Not Available Not Available Vitamin D3 25 mcg (1,000 unit) capsule 07/27 completed Medicati on ID: [id number] R niharika: () Brand Name: Vitamin D3 Send Method: E-Prescr ibed Sub s Allowed: subs OK Medic ationGen ericName : Vitamin D3 Not Available Not Available Not Available ProAir HFA 90 mcg/actua tion aerosol inhaler 2 puff 03/31 completed Medicati on ID: [id number] D uration Value: 30 Prescri bed By Name: Marysol Alvarez nd Name: ProAir HFA Send Method: E-Prescr ibed Sub s Allowed: subs OK Medic ationGen ericName : ProAir HFA Not Available Not Available Not Available Fiber Laxative (methylce llulose) 500 mg tablet 01/20 completed Medicati on ID: [id number] D uration Value: 30 Brand Name: Fiber Laxative (methylc ellulo) Send Method: E-Prescr ibed Sub s Allowed: subs OK Speci al Instruct ion: TAKE TWO TABLETS DAILY WITH 8oz of WATER Me dication GenericN lucille: Fiber Laxative (methylc ellulo) Not Available Not Available Not Available cholecalc iferol (vitamin D3) 50 mcg (2,000 unit) capsule active Medicati on ID: [id number] B rand Name: cholecal ciferol (vitamin D3) Send Method: E-Prescr ibed Sub s Allowed: subs OK Speci al Instruct ion: TAKE ONE CAPSULE DAILY Me dication GenericN lucille: cholecal ciferol (vitamin D3) Not Available Not Available Not Available Toviaz 4 mg tablet,ex tended release 12/16 completed Medicati on ID: [id number] R niharika: () Brand Name: Toviaz S end Method: E-Prescr ibed Sub s Allowed: subs OK Medic ationGen ericName : Toviaz Not Available Not Available Not Available omeprazol e magnesium 20 mg capsule,d elayed release 2015 active Medicati on ID: [id number] B rand Name: omeprazo le magnesiu m Send Method: E-Prescr ibed Sub s Allowed: subs OK Medic ationGen ericName : omeprazo le magnesiu m Not Available Not Available Not Available EpiPen 2-Hunter 0.3 mg/0.3 mL injection , auto-inje ctor 1 pen injector intramus cularly 2016 active Medicati on ID: [id number] D uration Value: 180 Prescri bed By Name: Bob croft M.D. Bra nd Name: EpiPen 2-Hunter Se nd Method: E-Prescr ibed Sub s Allowed: subs OK Medic ationGen ericName : EpiPen 2-Hunter Not Available Not Available Not Available ferrous sulfate 220 mg (44 mg iron)/5 mL oral elixir 03/03 completed Medicati on ID: [id number] R niharika: () Brand Name: ferrous sulfate Send Method: E-Prescr ibed Sub s Allowed: subs OK Medic ationGen ericName : ferrous sulfate Not Available Not Available Not Available Tab-A-Vit e Multivita min w-iron 15 mg iron-400 mcg tablet 03/22 completed Medicati on ID: [id number] B rand Name: Tab-A-Vi te Multivit anton [...] Updated DateTime 04/28/2024 127 cm 64.7 kg/m2 863298.25 g Vadim Ferris [place] - [facility] 04/28/2024 14:45:47 Social History None recorded. [...] [id number] BOB DOS SANTOS MD [facility] [address] [address] 04/28/2024 14:01:27 04/28/2024 15:00:34 Allergic rhinitis 56233274 J30.9 Deviated nasal septum 12 1081534 J34.2 Health Concerns Section Related Observation LastModified by Organization Detai ls LastModified Time None Recorded Concern Status LastModified by Organization Details LastModified Time None Recorded Advance Directives Directive None Recorded Payers Encounter Date Sequence Insurance Name Policy Number Policy Thomas Covered Member ID Thomas Member ID Guarantor Name 04/28/2024 1 [place] [facility] PL[facility] Tanna Hinton [id number] Tanna Hinton Notes Date Note Type Note Provider Name and Address Organization Details Recorded Time 04/28/2024 text/html Still notes nasa l congestion despite antihistamines and nasal sprays. Allergy testing trees, grass, mold and dust. CT today no sinus disease with lucency around left molar BOB WRAY MD [address] [place] [address], [phone], [place] - [facility] 04/28/2024 15:00:10 OBGyn Episode No OBEpisode recorded.
[2024-11-05 12:22] VITALS: BP 124/75; PULSE 74; BMI 45.9
== END 2024-11-05 13:07 | disposition home or self-care (01) ==
PROVIDERS: PCP Internal Medicine; Visit Provider Nurse Practitioner
DX: K59.00 Constipation, unspecified (principal); K21.9 Gastro-esophageal reflux disease without esophagitis
CPT/HCPCS: 99214

== ENCOUNTER → 2024-11-05 12:13 | Outpatient (BNVA) | payer MEDICAID, SELFPAY | PROVIDERS: PCP Internal Medicine; Visit Provider Nurse Practitioner | DX: K59.00 Constipation, unspecified (principal); K21.9 Gastro-esophageal reflux disease without esophagitis; R14.0 Abdominal distension (gaseous); Z98.890 Other specified postprocedural states | CPT/HCPCS: 99212 ==

== ENCOUNTER → 2025-03-10 08:00 | Outpatient (BNV) | payer MEDICAID, SELFPAY | PROVIDERS: PCP Internal Medicine; Visit Provider Internal Medicine | DX: Z12.31 Encounter for screening mammogram for malignant neoplasm of breast (principal) | CPT/HCPCS: 77063; 77067 ==

== ENCOUNTER 2025-03-10 08:02 | Outpatient (REF) | payer MEDICAID, SELFPAY ==
--- OUTSIDE RECORDS SUMMARY | 2025-03-10 08:12 | XMS_ITS | Encounter Summary ---
Author Organization [employer] Address [address] [facility] [address] 7 [place] [address] Care Team Providers Care [employer]p [employer] Name Role Phone Anurag Washington MD Primary Care Provider [phone] Encounter Details Date Type Department Care Team (Late st Contact Info) Description 09/17/2023 Abstract [facility] MEDICINE [address] [place], [place] [phone] Tori Pastrana Social History Tobacco Use Types Packs/Day Years Used Date Smoking Tobacco: Never Smokeless Tobacco: Never Comments Unknown Sex and Gender Information Value Date Recorded Sex Assigned at Female 09/16/2022 10:28 AM EDT Legal Sex Female 10:28 AM EDT Gender Identity Female 09/16/2022 10:28 AM EDT Sexual Orientation Straight 09/16/2022 10 :28 AM EDT documented as of this encounter Plan of Treatment Upcoming Encounters Date Type Department Care Team (Late st Contact Info) Description 03/18/2025 2:30 PM EDT Office Visit [facility] MED & PEDS [address] [place], [place] [phone] Anurag Washington MD [address] [place] [address] documented as of this encounter Procedures Procedure Name Priority Date/Time Associated Diagnosis Comments IFOBT Routine 08/27/2022 11:52 AM EDT documented in this encounter Results * gFOBT (08/27/2022 11:52 AM EDT) Fecal Occult Blood 1 Negative Fecal Occult Blood 2 Negative Fecal Occult Blood 3 Negative 08/27/2022 11:5 2 AM EDT us Historical Provider POINT OF CARE TEST ENTER/ EDIT ORDERABLES Final Result documented in this encounter Visit Diagnoses Not on filedocumented in this encounter Care Teams [employer] Relationship Specialty Start Date End Date Anurag Washington MD [address] [place] [address] PCP - General Internal Medicine 09/04/20 documented as of this encounter
--- OUTSIDE RECORDS SUMMARY | 2025-03-10 08:12 | XMS_ITS | Encounter Summary ---
Author Organization [employer] Address [address] [place] [address] [facility] [place] [address] Care Team Providers Care Milk Tester Name Role Phone Anurag Washington MD Primary Care Provider [phone]- [phone] Reason for Referral * Imaging (Routine) - Closed Specialty Diagnoses / Procedures Referred By Roxanne salter Referred To Contact Radiology Diagnoses Right lower quadrant abdominal pain Procedures US Pelvis Transvaginal Anurag Washington MD [address] [place] [address] Phone: tel: fax: [address] Phone: tel: fax: Referral ID Status Reason Start Date Expiration Date Visits Re quested Visits Authorized [id number] Closed 07/09/2023 07/08/2024 1 1 Encounter Details Date Type Department Care Team ([facility] st Contact Info) Description 07/09/2023 Orders Only [facility] [address] [place], [place] [phone] Anurag Washington MD [address] [place] [address] Right lower quadrant abdominal pain (Primary Dx) Social History Tobacco Use Types Packs/Day Years [...] Upcoming Encounters Date Type Department Care Team ([facility] st Contact Info) Description 03/18/2025 2:30 PM EDT Office Visit [facility] [address] [facility] [address] Anurag Washington MD [address] [place] [address] documented as of this encounter Procedures Procedure Name Priority Date/Time Associated Diagnosis Comments US PELVIS TRANSVAGINAL Routine 07/30/2023 11:25 AM EDT Right lower quadrant abdominal pain documented in this encounter Results * US Pelvis Transvaginal (07/30/2023 11:25 AM EDT) Anatomical Region Laterality Modality Pelvis Ultrasound 07/30/2023 11:2 5 AM EDT Narrative 07/31/2023 1:35 PM EDT ? [facility] ?[address] ?[place] [address] ? Ultrasound Report ? Signed ? Patient: Tanna Hinton ?MR#: [id number] ? : 1975 ?Acct:[id number] ? Age/Sex: 47 / F ?ADM Date: 07/30/23 ? Loc: HO.US ? Attending Dr: Anurag Washington MD ? Ordering Physician: Anurag Washington MD ?? Date of Service: 07/30/23 ?? Procedure(s): US pelvic and transvaginal ?? Accession Number(s): [id number] ? cc: Anurag Washington MD ? EXAMINATION: ? US PELVIS ? CLINICAL INFORMATION: ? Right lower quadrant pain. ? COMPARISON: ?? CT abdomen and pelvis 01/27/2019, pelvic ultrasound 08/19/2017. ? TECHNIQUE: ?? Ultrasound of the pelvis is performed using both transabdominal and ?? transvaginal transducers along with Doppler. Transvaginal imaging is ?? performed due to inadequate visualization transabdominally. ? FINDINGS: ?? Uterus: The uterus is anteverted and measures 7.4 x 3.6 x 5.7 cm for a ?? volume of 80 mL. ? The double wall endometrial thickness is 5 mm. Nabothian cysts are ?? present in the cervix. ? 4 uterine fibroids are seen ranging in size from under 1 cm to 2.0 cm. ?? Similar findings were present on the 2017 study. ? Adnexa: Both ovaries are visualized. There is normal color flow to the ?? adnexa. There is no ovarian torsion. ??There is no pelvic ascites or ?? fluid collection. ? Right ovary measures 3.3 x 1.9 x 2.7 cm for a volume of 8.9 mL which ?? includes a 1.6 cm benign cyst. ? Left ovary measures 4.4 x 2.3 x 4.1 cm for a volume of 21.4 mL which ?? includes 2 cysts, one simple measuring 2.4 cm and another complex with ?? some echogenic debris. ? US/US pelvic and transvaginal ?? IMPRESSION: ?? 1. Multiple uterine fibroids. ? 2. Small bilateral ovarian cysts need no follow up. ? Dictated By: ?Jorge Kilpatrick MD ? Signed By: ?<Electronically signed by Jorge Kilpatrick MD in OV> ? 07/31/23 1331 ? DD/ 1125 ? TD/TT: ? Fisheries Inspector: SS ? Procedure Note Osmany James - 07/31/2023 [place] [address] Ultrasound Report Signed Patient: James Hinton#: [id number] : 1975Acct:[id number] Age/Sex: 47 / FADM Date: 07/30/23 Loc: HO.US Attending Dr: Anurag Washington MD Ordering Physician: Anurag Washington MD Date of Service: 07/30/23 Procedure(s): US pelvic and transvaginal Accession Number(s): [id number] cc: Anurag Washington MD EXAMINATION: US PELVIS CLINICAL INFORMATION: Right lower quadrant pain. COMPARISON: CT abdomen and pelvis 01/27/2019, pelvic ultrasound 08/19/2017. TECHNIQUE: Ultrasound of the pelvis is performed using both transabdominal and transvaginal transducers along with Doppler. Transvaginal imaging is performed due to inadequate visualization transabdominally. FINDINGS: Uterus: The uterus is anteverted and measures 7.4 x 3.6 x 5.7 cm for a volume of 80 mL. The double wall endometrial thickness is 5 mm. Nabothian cysts are present in the cervix. 4 uterine fibroids are seen ranging in size from under 1 cm to 2.0 cm. Similar findings were present on the 2017 study. Adnexa: Both ovaries are visualized. There is normal color flow to the adnexa. There is no ovarian torsion. There is no pelvic ascites or fluid collection. Right ovary measures 3.3 x 1.9 x 2.7 cm for a volume of 8.9 mL which includes a 1.6 cm benign cyst. Left ovary measures 4.4 x 2.3 x 4.1 cm for a volume of 21.4 mL which includes 2 cysts, one simple measuring 2.4 cm and another complex with some echogenic debris. US/US pelvic and transvaginal IMPRESSION: 1. Multiple uterine fibroids. 2. Small bilateral ovarian cysts need no follow up. Dictated By: Jorge Kilpatrick MD Signed By: <Electronically signed by Jorge Kilpatrick MD in OV> 07/31/23 1331 DD/ 1125 TD/TT: Fisheries Inspector: SS us Anurag Washington MD IMG US PROCEDURES Final Res ult documented in this encounter Visit Diagnoses Diagnosis Right lower quadrant abdominal pain- Primary documented in this encounter Care Teams Milk Tester Relationship Specialty Start Date End Date Anurag Washington MD [address] [place] [address] PCP - General Internal Medicine 09/04/20 documented as of this encounter
--- OUTSIDE RECORDS SUMMARY | 2025-03-10 08:12 | XMS_ITS | Encounter Summary ---
Author Organization [employer] Address [address] [place] [address] [facility] [place] [address] Care Team Providers Care Beach Patrol Lieutenant Name Role Phone Anurag Washington MD Primary Care Provider [phone] Encounter Details Date Type Department Care Team ([facility] Contact Info) Description 03/11/2024 Orders Only [facility]ED[facility] [address] [place] [address] Anurag Washington MD [address] [place] [address] Social History Tobacco Use Types Packs/Day Years [...] Encounters Date Type Department Care Team (Late Contact Info) Description 03/18/2025 2:30 PM EDT Office Visit [facility]S [address] [place] [address] Anurag Washington MD [address] [place] [address] documented as of this encounter Visit Diagnoses Not on filedocumented in this encounter Care Teams [employer] Lieutenant Relationship Specialty Start Date End Date Anurag Washington MD [address] [place] [address] PCP - General Internal Medicine 09/04/20 documented as of this encounter
--- OUTSIDE RECORDS SUMMARY | 2025-03-10 08:12 | XMS_ITS | Clinical Summary ---
Author Organization [employer] Address [address] [place] [address] 7[address] [place] [address] Care Team Providers Care E Learning Designer Name Role Phone Anurag Washington MD Primary Care Provider [phone] Allergies Active Allergy Reactions Criticality Noted Date Comments Food 06/26/2024 Certain types of cheeses, mushrooms, nuts (pt unable to identify further) Lisinopril Cough 05/08/2022 Oxycodone-Acetaminophen 11/12/2024 Medications fluticasone (Flonase) 50 MCG/ACT nasal sprayIndications :Non-seasonal allergic rhinitis due to other allergic trigger Administer 2 sprays into each nostril 2 times daily. Shake gently. Before first use, prime pump. After use, clean tip and replace cap. 16 g 11 3 Active Diclofenac Sodium 1 % gelIndications:R ight foot pain To apply to the affected area 3 times a day 100 g 3 Active triamcinolone (Kenalog) 0.1 % creamIndications :Dermatitis, unspecified Apply thin layer by topical route twice daily for up to one week if needed (Use: itching/irritat ion back of neck) 30 g 1 4 Active EPINEPHrine (Epipen) 0.3 MG/0.3ML injection syringeIndicatio ns:Multiple food allergies Inject 0.3 mL (0.3 mg) as directed if needed for anaphylaxis (severe allergic reaction) for up to 1 dose. Call 911 after use, and proceed to hospital for further evaluation. 2 each 3 4 Active cholecalciferol VITAMIN D (Vitamin D-3) 50 MCG (1999) capsuleIndicatio ns:Vitamin D deficiency, unspecified TAKE ONE CAPSULE EVERY MORNING 90 capsule 3 5 Active losartan (Cozaar) 100 MG tabletIndication s:Essential hypertension Take 1 tablet (100 mg) by mouth in the morning. 90 tablet 3 5 Active hydroCHLOROthiaz manny (HYDRODiuril) 25 MG tabletIndication s:Essential hypertension Take 1 tablet (25 mg) by mouth Once per day. 90 tablet 2 5 Active Dextromethorphan -guaiFENesin (Mucinex DM) 30-600 MG tablet sustained-releas e 12 hour Use 1 tab TID 28 tablet 5 Active azithromycin (Zithromax) 250 MG tablet Take 2 tabs day and then 1 tab daily 6 tablet 5 Active benzonatate (Tessalon) 200 MG capsule Take 1 capsule (200 mg) by mouth if needed in the morning, at noon, and at bedtime for cough for up to 7 days. Do not crush or chew. 20 capsule 5 025 predniSONE (Deltasone) 20 MG tablet Take 1 tablet (20 mg) by mouth Once per day for 5 days. 5 tablet 5 025 Active Problems Problem Noted Date Diagnosed Date Healthcare maintenance 06/26/2024 Overview (06/26/2024): Last PE: 06/25/24 Pap: reports completed Nov 2023 at outside clinic, result normal. Denies hx of abnormal. Mammo: BIRADS 1 on 03/04/24 Colon CA screening: FOBT neg Aug 2022. Cologuard ordered on 06/25/24. Assessment & Plan (06/26/2024 6:54 PM EDT): Vaccines: declined PCV20 on 06/25/24 Seasonal allergies 11/15/2022 Benign paroxysmal positional vertigo 07/29/2018 Essential hypertension 07/29/2018 Assessment & Plan (06/26/2024 6:38 PM EDT): Elevated in office, although well controlled per home BP readings BP goal: < 140/90 mmHg Continue regimen below, follow up if readings above goal Losartan 50mg daily Hydrochlorothiazide 25mg daily Encouraged lifestyle interventions including low salt diet, daily physical activity Gastroesophageal reflux disease 07/29/2018 Assessment & Plan (06/26/2024 6:37 PM EDT): Continues with OTC omeprazole Encourage lifestyle interventions to decrease symptoms including avoid triggering foods (such as coffee, chocolate, fatty foods), eating 2-3 hours before lying down, and weight loss. Iron deficiency anemia 07/29/2018 Vitamin D deficiency 07/29/2018 Assessment & Plan (06/26/2024 6:36 PM EDT): Continues with Vit D 2000 units daily Repeat Vit D ordered Resolved Problems Problem Noted Date Diagnosed Date Resolved Date Upper respiratory tract infection 09/19/2023 06/25/2024 Assessment & Plan (09/19/2023 10:41 AM EDT): Patient with complaints of URI symptoms will be prescribed Robitussin. Advised to drink liquids and rest as much as possible, and recommended to take OTC Tylenol if needed. Rapid COVID Influenza A-B Rapid Strep: NEGATIVE. Encounters Date Type Department Care Team Description 02/04/2025 1:40 PM EDT Office Visit [facility] [address] [place] [address] Missy Michelle MD Acute bronchitis, unspecified organism 02/04/2025 Travel 02/04/2025 Telephone [facility] [address] [place] [address] Anurag Washington MD Nurse Triage 01/28/2025 Population Health Risk Score [facility] ([facility]) Department [address] [phone] Provider, Population Health Generic 01/17/2025 2:30 PM EST Office Visit [facility] [address] [place] [address] Anurag Washington MD Paronychia of great toe of right foot (Primary Dx); Essential hypertension; Dietary counseling; Exercise counseling; Class 3 severe obesity due to excess calories with serious comorbidity and body mass index (BMI) of 45.0 to 49.9 in adult ([facility]); Encounter for immunization; Essential hypertension 01/17/2025 Travel 01/14/2025 Telephone [facility] PEDS [address] [place] [address] Anurag Washington MD chart prep 12/16/2024 Refill [facility] [address] [place] [address] Anurag Washington MD Vitamin D deficiency, unspecified from Last 3 Months Immunizations Name Administration Dates Next Due Hep A, Adult 01/17/2025 Hep B, adult 03/14/2023,09/09/2022,08/12/2022 Pneumococcal Conjugate PCV 20 01/17/2025 Tdap 10/18/2015 Zoster, Recombinant 10/24/2023,08/22/2023 Family History Medical History Relation Name Comments Hypertension Maternal Grandmother Hypertension Mother Relation Name Status Comments Maternal Grandmother Mother Social History Tobacco Use Types Packs/Day Years Used Date Smoking Tobacco: Never Passive Smoke Exposure: Current Smokeless Tobacco: Never Tobacco Cessation:Counseling Given: Not Answered Depression Answer Date Recorded Patient Health Questionnaire-9 Score 0 06/25/2024 Patient Health Questionnaire-9 Score 0 06/25/2024 Last PHQ-9: Questionnaire Data Not on file 0 06/25/2024 Housing Stability Answer Date Recorded What is your housing situation today? I have dougcece sue 06/16/[address] you li ve. Do you have problems with any of the following? None of the above 06/16/2024 Food Insecurity Answer Date Recorded Within the past 12 months, y ou worried that your food would run out before you got money to buy more: Never True 06/16/2024 Within the past 12 months,th e food you bought just didn't last and you didn't have enough money to get more: Never True Transportation Answer Date Recorded In the past 12 months, has l ack of transportation kept you from medical appts, meetings, work or from getting things needed for daily living? No 06/16/2024 Utilities Answer Date Recorded In the past 12 months, has t he electric, gas, oil or water company threatened to shut off services in your home? No 06/16/2024 Depression Answer Date Recorded Patient Health Questionnaire-2 Score 0 06/25/2024 Internet Access Answer Date Recorded Internet Access Q1 Yes 07/19/2024 Internet Access Q2 Not on file 07/19/2024 Comments Unknown Sex and Gender Information Value Date Recorded Sex Assigned at Female 09/16/2022 10:28 AM EDT Legal Sex Female 10:28 AM EDT Gender Identity Female 09/16/2022 10:28 AM EDT Sexual Orientation Straight 09/16/2022 10 :28 AM EDT Last Filed Vital Signs Vital Sign Reading Time Taken Comments Blood Pressure 154/87 02/04/2025 1:55 PM EDT Pulse 91 02/04/2025 1:55 PM EDT Temperature 36.9 ??C (98.5 ??F) 02/04/2025 1:55 PM ED T Respiratory Rate 20 02/04/2025 1:55 PM EDT Oxygen Saturation 97% 02/04/2025 1:55 PM EDT Inhaled Oxygen Concentration - - Weight 113 kg (249 lb) 01/17/2025 2:40 PM EST Height 154.9 cm (5' 1 ) 01/17/2025 2:40 PM EST Body Mass Index 47.05 01/17/2025 2:40 PM EST Plan of Treatment Upcoming Encounters Date Type Department Care Team (Late st Contact Info) Description 03/18/2025 2:30 PM EDT Office Visit [facility] [address] [place] [address] Anurag Washington MD [address] [place] [address] Health Maintenance Due Date Last Done Comments CT Colonography 1975 Colonoscopy 1973 FIT DNA/Cologuard 1973 FIT 1973 Sigmoidoscopy 1973 Family Planning (PISQ) 1988 Pap Smear 1994 Cervical Cancer Screening 2003 HPV/Cotest 2003 Colorectal Cancer Screening 08/27/2023 FOBT 08/27/2023 08/27/2022 Influenza Vaccine (#1) 2025 Postp oned from 07/18/2024 (Patient Refused) SDOH Screening 06/16/2025 06/16/2024 Depression Screening 06/25/2025 06/25/2024, 06/25/20 Diabetes: Hemoglobin A1C 06/29/2025 06/29/2024, 0407/2022 Hepatitis A Vaccines (2 of 2 - Risk 2-dose series) 07/20/2025 01/17/2025 DTaP/Tdap/Td Vaccines (2 - Td or Tdap) 10/18/2025 10/18/2015 Alcohol/Substance Use Screening 01/17/2026 01/17/2025 COVID-19 Vaccine ( season) 2026 04/08/2021, 03/18/2021 Postponed from 07/18/2024 (Patient Refused) Tobacco Screening 02/04/2026 02/04/2025 Mammogram 03/04/2026 03/04/2024, 02/15, 02/05/2022, Additional history exists Lipid Panel 06/29/2029 06/29/2024, 12/01/2020 RSV Patients and Patients Aged 60 years or older (1 - 1-dose 75+ series) 2048 Hepatitis B Vaccines Completed 03/14/2023, 09/09/2022, 08/12/2022 Zoster Vaccines Completed 10/24/2023, 08/22/2023 HIV Screening Completed 06/29/2024, 12/01/2020 Hepatitis C Screening Completed 06/29/2024 Pneumococcal Vaccine: 50+ Years Completed 01/17/2025 HIB Vaccines Aged Out No longer eligi ble based on patient's age to complete this topic HPV Vaccines Aged Out No longer eligi ble based on patient's age to complete this topic IPV Vaccines Aged Out No longer eligi ble based on patient's age to complete this topic Meningococcal Vaccine Aged Out No jaime faheem eligible based on patient's age to complete this topic RSV under 20 months Aged Out No longe r eligible based on patient's age to complete this topic Rotavirus Vaccines Aged Out No longer eligible based on patient's age to complete this topic Procedures Procedure Name Priority Date/Time Associated Diagnosis Comments POCT RAPID COVID ANTIGEN Routine 02/04/2025 2:08 PM EDT Acute bronchitis, unspecified organism POCT INFLUENZA B Routine 02/04/2025 2:07 PM EDT Acute bronchitis, unspecified organism POCT INFLUENZA A Routine 02/04/2025 2:07 PM EDT Acute bronchitis, unspecified organism HEPATITIS C VIRAL RNA, QUANTITATIVE, REAL-TIME PCR Routine 06/29/2024 9:35 AM EDT Healthcare maintenance HIV 1/2 ANTIGEN/ANTIBODY, FOURTH GENERATION W/RFL Routine 06/29/2024 9:35 AM EDT Healthcare maintenance HEMOGLOBIN A1C Routine 06/29/2024 9:35 AM EDT Healthcare maintenance LIPID PANEL, STANDARD Routine 06/29/2024 9:35 AM EDT Healthcare maintenance BI MAMMOGRAM SCREENING TOMOSYNTHESIS BILATERAL Routine 03/04/2024 8:10 AM EDT HM IFOBT Routine 08/27/2022 11:52 AM EDT from Last 3 Months or Most Recently Relevant to Health Maintenance Results * POCT Rapid Covid-19 BinaxNOW (02/04/2025 2:08 PM EDT) Rapid COVID Ag Negative QC Media Lot # [id number] Lot# Expiration Date [id number] Swab 02/04/2025 2:08 PM EDT Missy Michelle MD POINT OF CARE TEST ENTER/EDIT OR DERABLES Final Result * POCT Rapid Influenza B OSOM (02/04/2025 2:07 PM EDT) Rapid Influenza B Ag Negative Negative, Indeterminate QC Media Lot # [id number] Lot# Expiration Date [id number] Swab 02/04/2025 2:07 PM EDT Missy Michelle MD POINT OF CARE TEST ENTER/EDIT OR DERABLES Final Result * (ABNORMAL) POCT Rapid Influenza A OSOM (02/04/2025 2:07 PM EDT) Pathologist [facility] Rapid Influenza A Ag Positive( A) Negative, Indeterminate QC Media Lot # [id number] Lot# Expiration Date Swab Nasopharyngeal structure / Unknown 02/04/2025 2:07 PM EDT Missy Michelle MD POINT OF CARE TEST ENTER/EDIT OR DERABLES Final Result * Hepatitis C Viral RNA, Quantitative, Real-Time PCR (06/29/2024 9:35 AM EDT) [facility] Hepatitis C Viral Load <15 NOT DETECTED NOT DETECTED IU/mL [facility] HCV Log PCR <1.18 NOT DETECTED NOT DETECTED Log IU/mL [facility] Comment:For additional infor rohit, please refer tohttp://education.dabanniu.com/faq/PIR23v8(This link is being provided for informational/educational purposes only.)THIS TEST WAS PERFORMED AT:[facility] [place] [phone] COLLINS MD Blood 06/29/2024 9:35 AM EDT 06/29/2024 2:41 PM EDT Rose Marie CAMILO LAB BLOOD ORDERABLES Final Res ult [facility] [address] [place] [phone] [phone] * HIV-1/2 Antigen and Antibodies, Fourth Generation, with Reflexes (06/29/2024 9:35 AM EDT) Pathologist [facility] HIV AB/AG Nonreactive Nonreactive [facility] Comment:HIV-1 p24 Ag and/or HIV-1/HIV-2 Ab not detected.A test result that is nonreactive does not exclude thepossibility of exposure to or infection with HIV-1 and/orHIV-2. Nonreactive results in this assay for individualswith prior exposure to HIV-1 and/or HIV-2 may be due toantigen and antibody levels that are below the limit ofdetection of this assay.The Gevoni[employer]andao HIV Ag/Ab Combo assay result andsupplemental assay results should be interpreted inconjunction with the patient's clinical presentation,history and other laboratory results. If the results areinconsistent with clinical evidence, additional testing issuggested to confirm the result. Blood Venous blood specimen / Unknown 06/29/2024 9:35 AM EDT 06/29/2024 2:36 PM EDT Rose Marie Sharma [facility] BLOOD ORDERABLES Final Res ult Performing Organization Address [facility] Co de Phone Number [facility] [address] [place] [phone] * Hemoglobin A1c (06/29/2024 9:35 AM EDT) Hemoglobin A1c 5.7 <6.0 % [facility] Comment:Hemoglobin A1C Refer ence Range Adults: 4.8 - 6.0 % Non diabetic: < 6.0 % Goal: < 7.0 %Additional Action Suggested: > 8.0 %Note: Hemoglobin A1c results are invalid for patients with abnormal amounts of HbF. Blood transfusions may impact the HbA1c concentration in the patient sample. Estimated Average Glucose 117 mg/dL [facility] Comment:eAG = Estimated ave rage glucose which is %A1C expressed asaverage glucose, using the formula of the [id number] Glucose study (ADAG), Diabetes Care, Vol.31,#8,Jun. 2007 Blood Venous blood specimen / Unknown 06/29/2024 9:35 AM EDT 06/29/2024 2:36 PM EDT Rose Marie Sharma [facility] BLOOD ORDERABLES Final Res ult Performing Organization Address [facility] Co de Phone Number [facility] [address] [place] [phone] * Lipid Panel, Standard (06/29/2024 9:35 AM EDT) Triglycerides 53 <150 mg/dL [facility] Comment:Desirable Triglyceri de: less than 150 mg/dLBorderline High Triglyceride 150-199 mg/dLHigh Triglyceride: 200-499 mg/dLVery High Triglyceride: greater than or equal to 5OO mg/dL Cholesterol 161 <200 mg/dL [facility] Comment:Desirable Cholestero l: less than 200 mg/dLBorderline High Cholesterol: 200-239 mg/dLHigh Cholesterol: greater than 239 mg/dL LDL Cholesterol Calculated 99 <100 mg/dL [facility] Comment:Desirable LDL: less than 100 mg/dLNear Optimal/Above Optimal LDL: 110- 129 mg/dLBorderline High LDL: 130-159 mg/dLHigh LDL: 160-189 mg/dLVery High LDL: greater than or equal to 190 mg/dL HDL Cholesterol 52 >40 mg/dL [facility] Comment:Desirable HDL: great er than 40 mg/dL Note: This HDL assay may give artificially low results in patients with liver disease. Blood Venous blood specimen / Unknown 06/29/2024 9:35 AM EDT 06/29/2024 2:36 PM EDT us Rose Marie Sharma [employer] CLEAN[employer]PER[employer] LAB BLOOD ORDERABLES Final Res ult [facility] [address] [place] [phone] * BI Mammogram Screening Tomosynthesis Bilateral (03/04/2024 8:10 AM EDT) Anatomical Region Laterality Modality Breast Bilateral Mammography 03/04/2024 8:10 AM EDT Narrative 03/29/2024 9:31 AM EDT ? [facility] [place] ? [address] ?[place] [address] ? Mammography Report ? Signed ? Patient: Hinton,Tanna ?MR#: [id number] ? : 1975 ?Acct:[id number] ? Age/Sex: 48 / F ?ADM Date: 04/18/24 ? Loc: HO.MAMMO ? Attending Dr: Anurag Washington MD ? Ordering Physician: Anurag Washington MD ?Results: 1 ?? Negative ? Date of Service: 03/04/24 ?Follow Up: 1 Year From Orig ?? inal Mammogram ? Procedure(s): MM tomosynthesis screening BI ?? Accession Number(s): [id number] ? cc: Anurag Washington MD ? EXAMINATION: ?? MM SCREENING DIGITAL BREAST TOMOSYNTHESIS, BILATERAL ? CLINICAL INFORMATION: ? Screening. Asymptomatic. ? COMPARISON: ?? Mammography: This study is compared with prior exams dating back to ?? 2019. ? TECHNIQUE: ?? Digital breast tomosynthesis is performed in both the craniocaudal and ?? mediolateral oblique views along with computer-aided detection (CAD). ?? Synthesized 2D images are generated from the tomosynthesis. ? FINDINGS: ?? The breasts are heterogeneously dense, which may obscure small masses ?? (ACR BI-RADS breast composition Category c). ? There are no significant masses, abnormal calcifications, or other ?? abnormalities. ? MM/MM tomosynthesis screening BI ?? IMPRESSION: ?? No mammographic evidence of malignancy. ? ASSESSMENT: ? BI-RADS BI-RADS 1 - Negative ? RECOMMENDATION: ?? Routine annual mammography screening. ? 1 year F/U ? This examination should not preclude the clinical evaluation of a ?? suspicious palpable abnormality. ? This patient's information was entered into a reminder system with a ?? target due date for their next mammogram. ? Dictated By: ?Venus Lozano MD ? Signed By: ?<Electronically signed by Venus Lozano MD in OV> ? 03/29/24926 ? DD/ 0810 ? TD/TT: ? Editorial Intern: ? Procedure Note Donotuseinterpreter, Image - 03/29/2024 [facility] [address] [place], [place] [address] Mammography Report Signed Patient: James Hinton#: [id number] : 1975Acct:[id number] Age/Sex: 48 / FADM Date: 03/04/24 Loc: HO.MAMMO Attending Dr: Anurag Washington MD Ordering Physician: Anurag Washington MDResults: 1 Negative Date of Service: 03/04/24Follow Up: 1 Year From Orig inal Mammogram Procedure(s): MM tomosynthesis screening BI Accession Number(s): [id number] cc: Anurag Washington MD EXAMINATION: MM SCREENING DIGITAL BREAST TOMOSYNTHESIS, BILATERAL CLINICAL INFORMATION: Screening. Asymptomatic. COMPARISON: Mammography: This study is compared with prior exams dating back to 2019. TECHNIQUE: Digital breast tomosynthesis is performed in both the craniocaudal and mediolateral oblique views along with computer-aided detection (CAD). Synthesized 2D images are generated from the tomosynthesis. FINDINGS: The breasts are heterogeneously dense, which may obscure small masses (ACR BI-RADS breast composition Category c). There are no significant masses, abnormal calcifications, or other abnormalities. MM/MM tomosynthesis screening BI IMPRESSION: No mammographic evidence of malignancy. ASSESSMENT: BI-RADS BI-RADS 1 - Negative RECOMMENDATION: Routine annual mammography screening. 1 year F/U This examination should not preclude the clinical evaluation of a suspicious palpable abnormality. This patient's information was entered into a reminder system with a target due date for their next mammogram. Dictated By: Venus Lozano MD Signed By: <Electronically signed by Venus Lozano MD in OV> 03/29/24926 DD/ 0810 TD/TT: Editorial Intern: Anurag Washington MD IMG BI PROCEDURES Final Res ult * HM gFOBT (08/27/2022 11:52 AM EDT) Fecal Occult Blood 1 Negative Fecal Occult Blood 2 Negative Fecal Occult Blood 3 Negative 08/27/2022 11:5 2 AM EDT Historical Provider POINT OF CARE TEST ENTER/ EDIT ORDERABLES Final Result from Last 3 Months or Most Recently Relevant to Health Maintenance Insurance [employer] C3 Care Teams E Learning Designer Relationship Specialty Start Date End Date Anurag Washington MD [address] [place] [phone] PCP - General Internal Medicine 09/04/20
--- OUTSIDE RECORDS SUMMARY | 2025-03-10 08:12 | XMS_ITS | Encounter Summary ---
Author Organization [employer] Address [address] [place] [address] Care Team Providers Care Supermarket Manager Name Role Phone Anurag Washington MD Primary Care Provider [phone] Encounter Details Date Type Department Care Team ([facility] st Contact Info) Description 07/01/2024 Telephone [facility] [address] [place], [place] [phone] Anurag Washington MD [address] [place], [place] [phone] Social History Tobacco Use Types Packs/Day Years Used Date Smoking Tobacco: Never Smokeless Tobacco: Never Depression Answer Date Recorded Patient Health Questionnaire-9 Score 0 06/25/2024 Patient Health Questionnaire-9 Score 0 06/25/2024 Last PHQ-9: Questionnaire Data Not on file 0 06/25/2024 Housing Stability Answer Date Recorded What is your housing situation today? 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 documented in this encounter Plan of Treatment Upcoming Encounters Date Type Department Care Team (Late st Contact Info) Description 03/18/2025 2:30 PM EDT Office Visit [facility] [address] [place] [address] Anurag Washington MD [address] [place] [address] documented as of this encounter Visit Diagnoses Not on filedocumented in this encounter Additional Health Concerns Assessment Noted Time PHQ-9 Depression Total Score: 0 06/25/20 24 3:00 PM EDT documented as of this encounter Care Teams Supermarket Manager Relationship Specialty Start Date End Date Anurag Washington MD [address] [place] [address] PCP - General Internal Medicine 09/04/20 documented as of this encounter
--- OUTSIDE RECORDS SUMMARY | 2025-03-10 08:13 | XMS_ITS | Encounter Summary ---
Author Organization [email or web address] Address [address] [place] [address] 7 [place] [address] Care Team Providers Care Cooling Pipe Inspector Name Role Phone Anurag Washington MD Primary Care Provider [phone] Encounter Details Date Type Department Care Team ([facility] Contact Info) Description 08/12/2023 Orders Only [facility] [address] [place] [address] Anurag Washington MD [address] [place] [address] Cysts of both ovaries (Primary Dx); Intramural uterine fibroid Social History Tobacco Use Types Packs/Day Years [...] Description 03/18/2025 2:30 PM EDT Office Visit [facility] [address] [place] [address] Anurag Washington MD [address] [place] [address] documented as of this encounter Visit Diagnoses Diagnosis Cysts of both ovaries- Primary Other and unspecified ovarian cyst Intramural uterine fibroid documented in this encounter Care Teams Cooling Pipe Inspector Relationship Specialty Start Date End Date Anurag Washington MD [address] [place] [phone] PCP - General Internal Medicine 09/04/20 documented as of this encounter
--- OUTSIDE RECORDS SUMMARY | 2025-03-10 08:13 | XMS_ITS | Encounter Summary ---
Author Organization [employer] Address [address] [place] [address] 7 [place] [address] Care Team Providers Care Mark Up Designer Name Role Phone Anurag Washington MD Primary Care Provider [phone] Reason for Visit * Reason Comments Med Refill Encounter Details Date Type Department Care Team (Late Contact Info) Description 11/27/2022 Refill [facility] [address] [place], [place] [phone] Anurag Washington MD [address] [place], [place] [phone] Essential hypertension (Primary Dx) Social History Tobacco Use Types Packs/Day Years Used Date Smoking Tobacco: Never Smokeless Tobacco: Never Comments Unknown Sex and Gender Information Value Date Recorded Sex Assigned at Female 09/16/2022 10:28 AM EDT Legal Sex Female 10:28 AM EDT Gender Identity Female 09/16/2022 10:28 AM EDT Sexual Orientation Straight 09/16/2022 10 :28 AM EDT COVID-19 Exposure Response Date Recorded In the last 10 days, have sridevi u been in contact with someone who was confirmed or suspected to have Coronavirus/COVID-19? No / Unsure 11/15/2022 3:26 PM EST documented as of this encounter Plan of Treatment Upcoming Encounters Date Type Department Care Team (Late Contact Info) Description 03/18/2025 2:30 PM EDT Office Visit [facility] [address] [place], [place] [phone] Anurag Washington MD [address] [place], [place] [phone] documented as of this encounter Visit Diagnoses Diagnosis Essential hypertension- Primary Unspecified essential hypertension documented in this encounter Care Teams Mark Up Designer Relationship Specialty Start Date End Date Anurag Washington MD [address] [place] [phone] PCP - General Internal Medicine 09/04/20 documented as of this encounter
--- OUTSIDE RECORDS SUMMARY | 2025-03-10 08:13 | XMS_ITS | Encounter Summary ---
Author Organization [employer] Address [address] [place] [address] 7 [place] [address] Care Team Providers Care Eyeglass Inspector Name Role Phone Anurag Washington MD Primary Care Provider [phone] Encounter Details Date Type Department Care Team ([facility] Contact Info) Description 11/29/2022 Orders Only [facility] [address] [place], [place] [phone] Keeley Bassett LPN Social History Tobacco Use Types Packs/Day Years [...] Recorded In the last 10 days, have yo u been in contact with someone who was confirmed or suspected to have Coronavirus/COVID-19? No / Unsure 11/15/2022 3:26 PM EST documented as of this encounter Plan of Treatment Upcoming Encounters Date Type Department Care Team (Late Contact Info) Description 03/18/2025 2:30 PM EDT Office Visit [facility] [address] [place] [address] Anurag Washington MD [address] [place] [address] documented as of this encounter Visit Diagnoses Not on filedocumented in this encounter Care Teams Eyeglass Inspector Relationship Specialty Start Date End Date Anurag Washington MD [address] [place] [phone] PCP - General Internal Medicine 09/04/20 documented as of this encounter
--- OUTSIDE RECORDS SUMMARY | 2025-03-10 08:13 | XMS_ITS | Clinical Summary ---
Author Organization [address] [place] [address] Address [address] [place] [address] Phone Care Team Providers Care Hide Buffer Name Role Phone Physician, Pcp Unknown Primary Care Provider Whitney vailable Allergies Active Allergy Reactions Criticality Noted Date Comments Lisinopril Cough 05/08/2022 Other 06/26/2024 Certain types of cheeses, mushrooms, nuts (pt unable to identify further) Oxycodone-Acetaminophen 11/12/2024 Medications azelastine (ASTELIN) 137 mcg (0.1 %) nasal spray use two sprays in each nostril twice daily 09/22/20 24 Active bisacodyL (DULCOLAX) 5 mg EC tablet TAKE TWO TABLETS AT BEDTIME FOR TWO DAYS 11/05/20 24 Active cholecalciferol (VITAMIN D-3) 50 mcg (2,000 unit) capsule Take 1 capsule (2,000 Units total) by mouth 1 (one) time each day in the morning. Active diclofenac (VOLTAREN) 1 % topical gel To apply to the affected area 3 times a day 05/08/20 23 Active EPINEPHrine (EPIPEN) 0.3 mg/0.3 mL injection INJECT INTRAMUSCULARLY DIRECTED ON PACKAGE, call IF NO RELIEF CALL 911 OR GO TO EMERGENCY ROOM Active fluticasone propionate (FLONASE) 50 mcg/actuation nasal spray Administer 2 sprays into each nostril 2 times daily. 12/09/19 23 Active hydroCHLOROthiaz manny (HYDRODIURIL) 25 mg tablet Take 1 tablet (25 mg total) by mouth 1 (one) time each day. Active ibuprofen (ADVIL,MOTRIN) 600 mg tablet take 1 tablet orally every 8 hours as needed for pain 02/15/20 24 Active losartan (COZAAR) 50 mg tablet Take 1 tablet (50 mg total) by mouth 1 (one) time each day in the morning. 09/15/20 24 Active mupirocin (BACTROBAN) 2 % ointment APPLY TO THE AFFECTED AREA(S) TOPICALLY THREE TIMES DAILY EVERY MORNING, NOON, AND AT BEDTIME FOR 10 DAYS. USE DIRECTED 11/12/20 24 Active omeprazole (PriLOSEC) [address] capsule Take 1 capsule (20 mg total) by mouth 1 (one) time each day. 11/05/20 24 Active polyethylene glycol (GoLYTELY) 236-22.74-6.74 -5.86 gram solution MIX DIRECTED AND DRINK 240 ml's EVERY 10 MINUTES UNTIL BOWEL MOVEMENT is CLEAR, DO NOT EXCEED 2000 ml's (ONE-HALF BOTTLE) 11/05/20 24 Active simethicone (MYLICON,GAS-X) 180 mg capsule TAKE ONE CAPSULE THREE TIMES DAILY NEEDED 11/05/20 24 Active triamcinolone (KENALOG) 0.1 % cream APPLY A THIN LAYER TO THE AFFECTED AREA(s) TWICE DAILY FOR UP TO ONE WEEK NEEDED Active silver sulfADIAZINE (Silvadene) 1 % cream Apply topically 1 (one) time each day. 50 g 12/06/19 25 026 Active Active Problems Problem Noted Date Diagnosed Date Seasonal allergies 11/15/2022 Benign paroxysmal positional vertigo 07/29/2018 Essential hypertension 07/29/2018 Gastroesophageal reflux disease 07/29/2018 Iron deficiency anemia 07/29/2018 Vitamin D deficiency 07/29/2018 Encounters Date Type Department Care Team Description 12/20/2024 3:45 PM EST Office Visit Orthopedic Surgery - [address] [phone] Francis Ling, DPM Ingrowing nail (Primary Dx); Diabetic mononeuropathy simplex (CMS/HCC V24, CMS/HCC V28) from Last 3 Months Social History Tobacco Use Types Packs/Day Years Used Date Smoking Tobacco: Never Assessed Comments Unknown Sex and Gender Information Value Date Recorded Sex Assigned at Not on file Legal Sex Female 3:32 PM EST Gender Identity Not on file Sexual Orientation Not on file Last Filed Vital Signs Vital Sign Reading Time Taken Comments Blood Pressure - - Pulse - - Temperature - - Respiratory Rate - - Oxygen Saturation - - Inhaled Oxygen Concentration - - Weight 111 kg (245 lb) 12/20/2024 3:35 PM EST Height 154.9 cm (5' 0.98 ) 12/20/2024 3:35 PM ES T Body Mass Index 46.32 12/20/2024 3:35 PM EST Plan of Treatment Upcoming Encounters Date Type Department Care Team (Late st Contact Info) Description 03/21/2025 3:30 PM EDT Office Visit Orthopedic Surgery - [place] [address] [phone] Francis Ling, JUSTO [address] [address] Health Maintenance Due Date Last Done Comments Breast Cancer Screening 1973 Diabetes: Annual GFR (Glomerular Filtration Rate) 1973 Diabetes: Annual Foot Exam 1983 Diabetes: Annual Retina Eye Exam 1983 Pneumococcal Vaccine: 50+ Years (1 of 2 - PCV) 1992 Pneumococcal Vaccine: Pediatrics (0 to 5 Years) and At-Risk Patients (6 to 64 Years) (1 of 2 - PCV) 1992 Cervical Cancer Screening: P ap Smear 1994 COVID-19 Vaccine (2023-2 5 season) 2024 04/08/2021, 03/18/2021 Colorectal Cancer Screening: Colonoscopy 12/06/2024 Diabetes: Annual Urine Albumin-Creatinine Ratio (uACR) 12/06/2024 Hepatitis C Screening 12/06/2024 Hypertension/CHF/CAD Annual BMP Blood Test 12/06/2024 Social Influencers of Health Screening 12/06/2024 Diabetes: Blood Sugar Contro l Test (HGBA1C) 12/30/2024 06/29/2024 Depression Screening 06/25/2025 06/25/2024 Influenza Vaccine (Season Ended) 2025 DTaP,Tdap,and Td Vaccines (2 - Td or Tdap) 10/18/2025 10/18/2015 Cholesterol Screening (Lipid Panel) 06/29/2029 06/29/2024 Hepatitis B Vaccines Completed 03/14/2023, 09/09/2022, 08/12/2022 Zoster Vaccines Completed 10/24/2023, 08/22/2023 HIV Screening Completed 06/29/2024 HIB Vaccines Aged Out No longer eligi ble based on patient's age to complete this topic HPV Vaccines Aged Out No longer eligi ble based on patient's age to complete this topic Hepatitis A Vaccines Aged Out No long er eligible based on patient's age to complete this topic IPV Vaccines Aged Out No longer eligi ble based on patient's age to complete this topic MMR Vaccines Aged Out No longer eligi ble based on patient's age to complete this topic Meningococcal ACWY Vaccine Aged Out N o longer eligible based on patient's age to complete this topic Meningococcal B Vaccine Aged Out No l onger eligible based on patient's age to complete this topic RSV Immunization Patients Under 20 months Aged Out No longer eligible b ased on patient's age to complete this topic Varicella Vaccines Aged Out No longer eligible based on patient's age to complete this topic Insurance MEDICAID - [place] Care Teams Hide Buffer Relationship Specialty Start Date End Date Physician, Pcp Unknown PCP - General 12/06/24
== END 2025-03-10 08:03 | disposition home or self-care (01) ==
LOC: HO.MAMMO 08:02
PROVIDERS: PCP Internal Medicine; Visit Provider Internal Medicine
DX: Z12.31 Encounter for screening mammogram for malignant neoplasm of breast (principal)
CPT/HCPCS: 77063; 77067

== ENCOUNTER 2025-04-05 | Outpatient (REF) | payer MEDICAID, SELFPAY ==
[2025-04-08 14:19] LABS: HPV Genotype 16 Negative (Negative); HPV Genotype 18 Negative (Negative); HPV High Risk Negative (Negative)
--- OUTSIDE RECORDS SUMMARY | 2025-05-17 07:09 | XMS_ITS | Data Portability ---
Author Organization MD - [facility], Allergy Address [address] [place] [address] Care Team Providers Care Steward/Stewardess [employer] D[employer] Car Name Role Phone KRISTA PRATHER Primary Care Provider KRISTA PRATHER Referring Provider [phone] Assessment Encounter Date Assessment Date Assessment LastModified by Organization Details LastModified Time 04/28/2024 04/28/2024 Still notes nasa l congestion despite antihistamines and nasal sprays. Allergy testing trees, grass, mold and dust. CT today no sinus disease with lucency around left molar At this point she would like to hold off on any surgical intervention or resuming immunotherapy. We discussed with an inventory control specialist #[id number] but I would recommend dental evaluation for [...] Imaging CT, sinuses, w/o contrast 2023 0[facility], [address] [place] [address], [place], [address], 15:00:35 Medication Orders azelasti ne 137 mcg (0.1 %) nasal spray 2023 024 [facility], [address] [facility], [place], [place], [id number], 10:25:16 Patient TargetsNo targets recorded. Patient InstructionsNo instructions recorded. Reason for Referral None Reported. Results Created Date Observation Date Name Description Value Unit Range Abnormal Flag Note LastModifiedBy Organization Detail LastModifiedTime 04/28/20 CT, sinus es, w/o contr ast No observ ation record ed. [facility] [address], [address], 04/28/2024 14:58:59 05/05/20 24 04/28/2024 CT, sinus es, w/o contr ast No observ ation record ed. [facility] [place] [address], [place], [address], 05/05/2024 08:26:29 07/06/20 24 11/23/2021 imagi ng/di [...] Organization Details Recorded Time Chronic pansinusi tis 04886577 Active 2015 Chronic pansinusit is; Note: Date Diagnosed: 08/14/2016 4:18 PM (J32.4) Not Available [facility] 4 02:13:38 Mild intermitt ent asthma 085809983 Active 2019 Mild intermitte nt asthma, uncomplica armando; Note: Date Diagnosed: 10/19/2020 9:38 AM (J45.20) Not Available [facility] 02:15:41 Allergic rhinitis 60799073 Active 2020 Allergic rhinitis: Due to other [...] AM (477.8) Note: Date Diagnosed Not Available [facility] 4 00:49:48 Abnormal auditory perceptio n 25847847 Active 2021 Other abnormal auditory perception s, bilateral; Note: Date Diagnosed: 11/23/2021 3:39 PM (H93.293) Not Available [facility] 4 02:15:15 Uncomplic ated mild persisten t asthma 720052883 Active 2016 Mild persistent asthma, uncomplica armando; Note: Date Diagnosed: 11/22/2016 4:41 PM (J45.30) Not Available [facility] 4 02:15:24 Acute upper respirato ry infection 60399112 Active 2017 Acute upper respirator y infection, unspecifie d; Note: Date Diagnosed: 12/03/2017 3:52 PM (J06.9) Not Available [facility] 4 02:15:56 Deviated nasal septum 589596102 Active 2023 BOB DOS SANTOS MD [address] [place] [address], [facility] [place], [address] , [facility] - [facility] 4 14:58:39 Hypertrop hy of nasal turbinate s 04499061 Active 2023 Hypertroph y of nasal turbinates ; Note: Date Diagnosed: 03/08/2024 11:33 AM (J34.3) Not Available [facility] 4 02:12:52 Problem Notes None recorded. Medical Equipment None Reported. Medications Name Sig Start Date Stop Date Status Note LastModified by Organization Details LastModified Time losartan 50 mg tablet active Medicati on ID: [id number] B rand Name: losartan Send Method: E-Prescr ibed Sub s Allowed: subs OK Speci al Instruct ion: TAKE ONE TABLET DAILY Me dication GenericN lucille: losartan Not Available Not Available Not Available oxybutyni n chloride ER 10 mg tablet,ex tended release 24 hr 07/27 completed Medicati on ID: [id number] D uration Value: 30 Reason: () Brand Name: oxybutyn in chloride Send Method: E-Prescr ibed Sub s Allowed: subs OK Speci al Instruct ion: TAKE ONE TABLET BY MOUTH EVERY DAY Medi cationGe nericNam e: oxybutyn in chloride Not Available Not Available Not Available atenolol 25 mg tablet 03/11 completed Medicati on ID: [id number] B rand Name: atenolol Send Method: E-Prescr ibed Sub s Allowed: subs OK Medic ationGen ericName : atenolol Not Available Not Available Not Available Zyrtec 10 mg tablet 03/22 completed Medicati on ID: [id number] B rand Name: Zyrtec S end Method: E-Prescr ibed Sub s Allowed: subs OK Speci al Instruct ion: Take 1 tablet by mouth every day Medi cationGe nericNam e: Zyrtec Not Available Not Available Not Available amlodipin e 5 mg tablet 01/20 completed Medicati on ID: [id number] B rand Name: kiran ne Send Method: E-Prescr ibed Sub s Allowed: subs OK Medic ationGen ericName : amlodipi ne Not Available Not Available Not Available magnesium oxide 400 mg (241.3 mg magnesium ) tablet 01/20 completed Medicati on ID: [id number] D uration Value: 30 Brand Name: cullenu m oxide Se nd Method: E-Prescr ibed Sub s Allowed: subs OK Speci al Instruct ion: TAKE ONE TABLET BY MOUTH EVERY DAY DIRECTED Medicat ionGener icName: magnesiu m oxide Not Available Not Available Not Available amlodipin e 10 mg tablet 03/22 completed Medicati on ID: [id number] B rand Name: amlodijose ne Send Method: E-Prescr ibed Sub s Allowed: subs OK Speci al Instruct ion: TAKE ONE TABLET BY MOUTH EVERY DAY Medi cationGe nericNam e: amlodipi ne Not Available Not Available Not Available benzonata te 100 mg capsule 03/22 completed Medicati on ID: [id number] B rand Name: benzonat ate Send Method: E-Prescr ibed Sub s Allowed: subs OK Speci al Instruct ion: TAKE ONE CAPSULE THREE TIMES DAILY NEEDED FOR COUGH Me dication GenericN lucille: benzonat ate Not Available Not Available Not Available Banophen 25 mg tablet 03/22 completed Medicati on ID: [id number] B rand Name: Banophen Send Method: E-Prescr ibed Sub s Allowed: subs OK Speci al Instruct ion: TAKE ONE TABLET AT BEDTIME NEEDED FOR COUGH Me dication GenericN lucille: Banophen Not Available Not Available Not Available monteluka st 10 mg tablet Take 1 tablet by mouth 08/12 completed Medicati on ID: [id number] R niharika: () Brand Name: monteluk ast Send Method: E-Prescr ibed Sub s Allowed: subs OK Speci al Instruct ion: Take 1 tablet by mouth every day in the evening Medicati onGeneri cName: monteluk ast Not Available Not Available Not Available hydrochlo rothiazid e 25 mg tablet 1 tablet by mouth 2015 active Medicati on ID: [id number] D uration Value: 30 Brand Name: hydrochl [...] unit) capsule 07/27 completed Medicati on ID: [id number] D uration Value: 28 Reason: () Brand Name: Vitamin D2 Send Method: E-Prescr ibed Sub s Allowed: subs OK Speci al Instruct ion: TAKE ONE CAPSULE EVERY WEEK FOR 12 WEEKS Me dication GenericN lucille: Vitamin D2 Not Available Not Available Not Available fluticaso ne propionat e 50 mcg/actua tion nasal spray,vani pension 2 puff into both nostrils 2019 active Medicati on ID: [id number] D uration Value: 30 Brand Name: fluticas one propiona te Send Method: E-Prescr ibed Sub s Allowed: subs OK Medic ationGen ericName : fluticas one propiona te Not Available Not Available Not Available naproxen 500 mg tablet 01/05 completed Medicati on ID: [id number] D uration Value: 10 Reason: () Brand Name: naproxen Send Method: E-Prescr ibed Sub s Allowed: subs OK Speci al Instruct ion: TAKE ONE TABLET BY MOUTH TWICE DAILY WITH FOOD Med icationG enericNa me: naproxen Not Available Not Available Not Available Vitamin D3 25 mcg (1,000 unit) capsule 07/27 completed Medicati on ID: [id number] R niharika: () Brand Name: Vitamin D3 Send Method: E-Prescr ibed Sub s Allowed: subs OK Medic ationGen ericName : Vitamin D3 Not Available Not Available Not Available ProAir HFA 90 mcg/actua tion aerosol inhaler 2 puff 03/31 completed Medicati on ID: [id number] D uration Value: 30 Prescri bed By Name: Marysol Alvarez nd Name: ProAir HFA Send Method: E-Prescr ibed Sub s Allowed: subs OK Medic ationGen ericName : ProAir HFA Not Available Not Available Not Available Fiber Laxative (methylce llulose) 500 mg tablet 01/20 completed Medicati on ID: [id number] D uration Value: 30 Brand Name: Fiber Laxative (methylc ellulo) Send Method: E-Prescr ibed Sub s Allowed: subs OK Speci al Instruct ion: TAKE TWO TABLETS DAILY WITH 8oz of WATER Me dication GenericN lucille: Fiber Laxative (methylc ellulo) Not Available Not Available Not Available cholecalc iferol (vitamin D3) 50 mcg (2,000 unit) capsule active Medicati on ID: [id number] B rand Name: cholecal ciferol (vitamin D3) Send Method: E-Prescr ibed Sub s Allowed: subs OK Speci al Instruct ion: TAKE ONE CAPSULE DAILY Me dication GenericN lucille: cholecal ciferol (vitamin D3) Not Available Not Available Not Available Toviaz 4 mg tablet,ex tended release 12/16 completed Medicati on ID: [id number] R niharika: () Brand Name: Toviaz S end Method: E-Prescr ibed Sub s Allowed: subs OK Medic ationGen ericName : Toviaz Not Available Not Available Not Available omeprazol e magnesium 20 mg capsule,d elayed release 2015 active Medicati on ID: [id number] B rand Name: omeprazo le magnesiu m Send Method: E-Prescr ibed Sub s Allowed: subs OK Medic ationGen ericName : omeprazo le magnesiu m Not Available Not Available Not Available EpiPen 2-Hunter 0.3 mg/0.3 mL injection , auto-inje ctor 1 pen injector intramus cularly 2016 active Medicati on ID: [id number] D uration Value: 180 Prescri bed By Name: Bob M. Schreibs tein, M.D. Bra nd Name: EpiPen 2-Hunter Se nd Method: E-Prescr ibed Sub s Allowed: subs OK Medic ationGen ericName : EpiPen 2-Hunter Not Available Not Available Not Available ferrous sulfate 220 mg (44 mg iron)/5 mL oral elixir 03/03 completed Medicati on ID: [id number] R niharika: () Brand Name: ferrous sulfate Send Method: E-Prescr ibed Sub s Allowed: subs OK Medic ationGen ericName : ferrous sulfate Not Available Not Available Not Available Tab-A-Vit e Multivita min w-iron 15 mg iron-400 mcg tablet 03/22 completed Medicati on ID: [id number] B rand Name: Tab-A-Vi te Multivit anton [...] Updated DateTime 04/28/2024 127 cm 64.7 kg/m2 296443.25 g Vadim Ferris MD - [facility] 04/28/2024 14:45:47 Social History None recorded. [...] [id number] BOB DOS SANTOS MD [facility] of [address] [address] 04/28/2024 14:01:27 04/28/2024 15:00:34 Allergic rhinitis 47605199 J30.9 Deviated nasal septum 12 4437576 J34.2 Health Concerns Section Related Observation LastModified by Organization Detai ls LastModified Time None Recorded Concern Status LastModified by Organization Details LastModified Time None Recorded Advance Directives Directive None Recorded Payers Insurance Date Sequence Insurance Name Policy Number Policy Thomas Covered Member ID Thomas Member ID Guarantor Name 04/28/2024 1 [place] [facility] Tanna Hinton [id number] Tanna Hinton Notes Date Note Type Note Provider Name and Address Organization Details Recorded Time 04/28/2024 text/html Still notes nasa l congestion despite antihistamines and nasal sprays. Allergy testing trees, grass, mold and dust. CT today no sinus disease with lucency around left molar BOB WRAY MD [address] [place] [address], [place], [address], [facility] - [facility] 04/28/2024 15:00:10 OBGyn Episode No OBEpisode recorded.
--- OUTSIDE RECORDS SUMMARY | 2025-05-17 07:09 | XMS_ITS | Clinical Summary ---
Author Organization [address] [place] [address] Address [address] [place] [address] Phone Care Team Providers Care Senior Drupal Developer Name Role Phone Physician, Pcp Unknown Primary [...] PM EDT Office Visit Orthopedic Surgery - [address] [address] Francis Ling, DPM Ingrowing nail (Primary Dx); Diabetic mononeuropathy simplex ([facility] V24, CMS/HCC V28) from Last 3 Months [...] topic Insurance MEDICAID - [place] Care Teams Senior Drupal Developer Relationship Specialty Start Date End Date Physician, Pcp Unknown PCP - General 12/06/24
== END 2025-04-05 00:01 | disposition home or self-care (01) ==
LOC: HO.LNP
PROVIDERS: Visit Provider Family Medicine
DX: Z12.4 Encounter for screening for malignant neoplasm of cervix (principal)
CPT/HCPCS: 87626; 88175

== ENCOUNTER 2025-04-27 08:22 | Day surgery (SDC) | payer MEDICAID, SELFPAY ==
--- OUTSIDE RECORDS SUMMARY | 2025-03-24 08:07 | XMS_ITS | Encounter Summary ---
Author Organization [employer] Address [address] [place] [address] 7 [place] [address] Care Team Providers Care Senior Merchandiser Name Role Phone Anurag Washington MD Primary Care Provider [phone] Reason for Visit * Reason Comments Med Refill Encounter Details Date Type Department Care Team ([facility] Contact Info) Description 11/27/2022 Refill [facility] [address] [place], [place] [phone] Anurag Washington MD [address] [place], [place] [phone] Essential hypertension (Primary Dx) Social History Tobacco [...] Upcoming Encounters Date Type Department Care Team ([facility] Contact Info) Description 04/05/2025 9:00 AM EDT Procedure Visit [facility] [address] [place], [place] [phone] Polly Benz MD [address] [place], [place] [phone] documented as of this encounter Visit Diagnoses Diagnosis Essential hypertension- Primary Unspecified essential hypertension documented in this encounter Care Teams Senior Merchandiser Relationship Specialty Start Date End Date Anurag Washington MD [address] [place] [phone] PCP - General Internal Medicine 09/04/20 documented as of this encounter
--- OUTSIDE RECORDS SUMMARY | 2025-03-24 08:07 | XMS_ITS | Clinical Summary ---
Author Organization [employer] Address [address] [facility] 7t [place] [address] Care Team Providers Care Test Fixture Designer Name Role Phone Anurag Washington MD Primary Care Provider [phone] [phone] Allergies Active Allergy Reactions Criticality Noted Date [...] cholecalciferol VITAMIN D (Vitamin D-3) 50 MCG (1999 UT) capsuleIndicatio ns:Vitamin D deficiency, unspecified TAKE ONE [...] 1 tab daily 6 tablet 5 Active azelastine (Astelin) 0.1 % nasal sprayIndications :Seasonal allergies Administer 1 spray into each nostril 2 times daily. Use in each nostril as directed 30 mL 12 5 03/18/20 26 Active Active Problems Problem Noted Date Diagnosed [...] Encounters Date Type Department Care Team Description 03/18/2025 2:30 PM EDT Office Visit [facility] [address] [place] [address] Anurga Washington MD Essential hypertension (Primary Dx); Encounter for immunization; Other iron deficiency anemia; Seasonal allergies 03/18/2025 Travel 03/10/2025 Orders Only [facility] [address] [place] [address] Anurag Washington MD 02/04/2025 1:40 PM EDT Office Visit [facility] [address] [place] [address] Missy Michelle MD Acute bronchitis, unspecified organism 02/04/2025 Travel 02/04/2025 Telephone [facility] [address] [place], [place] [phone] Anurag Washington MD Nurse Triage 01/28/2025 Population Health Risk Score [facility] ([facility]) Department [address] [phone] Provider, Population Health Generic 01/17/2025 2:30 PM EST Office Visit [facility] [address] [place] [address] Anurag Washington MD Paronychia of great toe of right foot (Primary Dx); Essential hypertension; Dietary counseling; Exercise counseling; Class 3 severe obesity due to excess calories with serious comorbidity and body mass index (BMI) of 45.0 to 49.9 in adult ([facility]); Encounter for immunization; Essential hypertension 01/17/2025 Travel 01/14/2025 Telephone [facility] [address] [place] [address] Anurag Washington MD chart prep from Last 3 Months Immunizations Name Administration [...] the past 12 months, has t he opendorse, gas, oil or water [employer] threatened to shut off services in your [...] Sign Reading Time Taken Comments Blood Pressure 130/57 03/18/2025 2:37 PM EDT Pulse 71 03/18/2025 2:37 PM EDT Temperature 36.4 ??C (97.5 ??F) 03/18/2025 2:37 PM ED T Respiratory Rate 18 03/18/2025 2:37 PM EDT Oxygen Saturation 98% 03/18/2025 2:37 PM EDT Inhaled Oxygen Concentration - - Weight 110 kg (242 lb) 03/18/2025 2:37 PM EDT Height 154.9 cm (5' 1 ) 03/18/2025 2:37 PM EDT Body Mass Index 45.73 03/18/2025 2:37 PM EDT Plan of Treatment Upcoming Encounters Date Type Department Care Team (Late st Contact Info) Description 04/05/2025 9:00 AM EDT Procedure Visit [facility] [address] [place] [address] Polly Benz MD [address] [place] [address] Health Maintenance Due Date Last Done Comments CT Colonography 1973 Colonoscopy 1973 FIT DNA/Cologuard 1973 FIT 1973 Sigmoidoscopy 1973 Family Planning (PISQ) 1988 Pap Smear 1994 Cervical Cancer Screening 2003 HPV/Cotest 2003 Colorectal Cancer Screening 08/27/2023 FOBT 08/27/2023 08/27/2022 Influenza Vaccine (#1) 2025 Postp oned from 07/18/2024 (Patient Refused) Depression Screening 06/25/2025 06/25/2024, 06/25/20 Diabetes: Hemoglobin A1C 06/29/2025 06/29/2024, 02/15 Hepatitis A Vaccines (2 of 2 - Risk 2-dose series) 07/20/2025 01/17/2025 DTaP/Tdap/Td Vaccines (2 - Td or Tdap) 10/18/2025 10/18/2015 Alcohol/Substance Use Screening 01/17/2026 01/17/2025 COVID-19 Vaccine ( season) 2026 04/08/2021, 03/18/2021 Postponed from 07/18/2024 (Patient Refused) SDOH Screening 03/18/2026 03/18/2025 Tobacco Screening 03/18/2026 03/18/2025 Mammogram 03/10/2027 03/10/2025, 02/15, 02/26/2023, Additional history exists Lipid Panel 06/29/2029 06/29/2024, [...] Procedure Name Priority Date/Time Associated Diagnosis Comments BI MAMMOGRAM SCREENING TOMOSYNTHESIS BILATERAL Routine 03/10/2025 8:10 AM EDT POCT RAPID COVID ANTIGEN Routine 02/04/2025 2:08 [...] Routine 06/29/2024 9:35 AM EDT Healthcare maintenance HM IFOBT Routine 08/27/2022 11:52 AM EDT from Last 3 Months or Most Recently Relevant to Health Maintenance Results * BI Mammogram Screening Tomosynthesis Bilateral (03/10/2025 8:10 AM EDT) Anatomical Region Laterality Modality Breast Bilateral Mammography 03/10/2025 8:10 AM EDT Narrative 03/18/2025 12:24 PM EDT ? [facility] ? [address] ?[place] [address] ?[phone] ? Mammography Report ? Signed ? Patient: Hinton,Tanna ?MR#: [id number] ? : 1975 ?Acct:[id number] ? Age/Sex: 49 / F ?ADM Date: 04/24/25 ? Loc: HO.MAMMO ? Attending Dr: Anurag Washington MD ? Ordering Physician: Anurag Washington MD ?Results: 1 ?? Negative ? Date of Service: 03/10/25 ?Follow Up: 1 Year From Orig ?? inal Mammogram ? Procedure(s): MM tomosynthesis screening BI ?? Accession Number(s): [id number] ? cc: Anurag Washington MD ? EXAMINATION: ?? MM SCREENING DIGITAL BREAST TOMOSYNTHESIS, BILATERAL ? CLINICAL INFORMATION: ? Screening. Asymptomatic. ? COMPARISON: ?? Mammography: Comparison is made with available priors ? TECHNIQUE: ?? Digital breast mammography with tomosynthesis is performed in both the ?? craniocaudal and mediolateral oblique views along with computer-aided ?? detection (CAD). ? FINDINGS: ?? The breasts are heterogeneously [...] due date for their next mammogram. ? Electronically signed by: ??Bernarda Han DO ??03/18/2025 12:21 PM EDT ?? RP ? Dictated By: ?Bernarda Han DO ? Signed By: ?<Electronically signed by Bernarda Han, DO in OV> ? 03/18/25 1221 ? DD/ 0810 ? TD/TT: 03/10/25 0825 ? Alley Worker: ? Procedure Note Donnino, Osmany - 03/18/2025 [facility] [address] [place] [address] Mammography Report Signed Patient: James Hinton#: [id number] : 1975Acct:[id number] Age/Sex: 49 / FADM Date: 03/10/25 Loc: HO.MAMMO Attending Dr: Anurag Washington MD Ordering Physician: Anurag Washington MDResults: 1 Negative Date of Service: 03/10/25Follow Up: 1 Year From Orig ina Mammogram Procedure(s): MM tomosynthesis screening BI Accession Number(s): [id number] cc: Anurag Washington MD EXAMINATION: MM SCREENING DIGITAL BREAST TOMOSYNTHESIS, BILATERAL CLINICAL INFORMATION: Screening. Asymptomatic. COMPARISON: Mammography: Comparison is made with available priors TECHNIQUE: Digital breast mammography with tomosynthesis is performed in both the craniocaudal and mediolateral oblique views along with computer-aided detection (CAD). FINDINGS: The breasts are heterogeneously dense, which [...] target due date for their next mammogram. Electronically signed by: Bernarda Han DO 03/18/2025 12:21 PM EDT Dictated By: Bernarda Han DO Signed By: <Electronically signed by Bernarda Han DO in OV> 03/18/25 1221 DD/ 0810 TD/TT: 03/10/25 0825 Alley Worker: Anurag Washington MD IMG BI PROCEDURES Final Res ult * POCT Rapid Covid-19 BinaxNOW (02/04/2025 2:08 PM EDT) [facility] Rapid COVID Ag Negative QC Media Lot # [id number] Lot# Expiration Date 026 Swab 02/04/2025 2:08 PM EDT Missy Michelle MD POINT OF CARE TEST ENTER/EDIT OR DERABLES Final Result * POCT Rapid Influenza B OSOM (02/04/2025 2:07 PM EDT) [facility] Rapid Influenza B Ag Negative Negative, Indeterminate QC Media Lot # [id number] Lot# Expiration Date Swab 02/04/2025 2:0 7 PM EDT Result [facility] Missy Michelle MD POINT OF CARE TEST ENTER/EDIT OR DERABLES Final Result * (ABNORMAL) POCT Rapid Influenza A OSOM (02/04/2025 2:07 PM EDT) [facility] Rapid Influenza A Ag Positive( A) Negative, Indeterminate QC Media Lot # [id number] Lot# Expiration Date Swab Nasopharyngeal structure / Unknown 02/04/2025 2:07 PM EDT Result [facility] Missy Michelle MD POINT OF CARE TEST ENTER/EDIT OR DERABLES Final Result * Hepatitis C Viral RNA, Quantitative, Real-Time PCR (06/29/2024 9:35 AM EDT) [facility] Hepatitis C Viral Load <15 NOT DETECTED NOT DETECTED IU/mL [facility] HCV Log PCR <1.18 NOT DETECTED NOT DETECTED Log IU/mL [facility] Comment:For additional infor rohit, please refer tohttp://education.[employer]/faq/EGW16j2(This link is being provided for informational/educational purposes only.)THIS TEST WAS PERFORMED AT:[employer] [place] [phone] COLLINS MD Blood 06/29/2024 9:35 AM EDT 06/29/2024 2:41 PM EDT us Rose Marie Sharma BENCH WORKER APPRENTICE LAB BLOOD ORDERABLES Final Res ult Performing Organization Address [facility] Co de Phone Number [facility] [address] [place] [address] [phone] * HIV-1/2 Antigen and Antibodies, Fourth Generation, with Reflexes (06/29/2024 9:35 AM EDT) Pathologist [facility] HIV AB/AG Nonreactive Nonreactive [facility] Comment:HIV-1 p24 Ag and/or HIV-1/HIV-2 Ab not detected.A test result that is nonreactive does not exclude thepossibility of exposure to or infection with HIV-1 and/orHIV-2. Nonreactive results in this assay for individualswith prior exposure to HIV-1 and/or HIV-2 may be due toantigen and antibody levels that are below the limit ofdetection of this assay.The [employer] HIV Ag/Ab Combo assay result andsupplemental assay results should be interpreted inconjunction with the patient's clinical presentation,history and other laboratory results. If the results areinconsistent with clinical evidence, additional testing issuggested to confirm the result. Blood Venous blood specimen / Unknown 06/29/2024 9:35 AM EDT 06/29/2024 2:36 PM EDT us Rose Marie SALVADORP LAB BLOOD ORDERABLES Final Res ult Performing Organization Address [facility]/State/ZIP Co de Phone Number [facility] [address] [place] [address] [phone] * Hemoglobin A1c (06/29/2024 9:35 AM EDT) Hemoglobin A1c 5.7 <6.0 % [facility] Comment:Hemoglobin A1C Refer ence Range Adults: 4.8 - 6.0 % Non diabetic: < 6.0 % Goal: < 7.0 %Additional Action Suggested: > 8.0 %Note: Hemoglobin A1c results are invalid for patients with abnormal amounts of HbF. Blood transfusions may impact the HbA1c concentration in the patient sample. Estimated Average Glucose 117 mg/dL [facility] Comment:eAG = Estimated ave rage glucose which is %A1C expressed asaverage glucose, using the formula of the [id number] Glucose study (ADAG), Diabetes Care, Vol.31,#8,Jun. 2007 Blood Venous blood specimen / Unknown 06/29/2024 9:35 AM EDT 06/29/2024 2:36 PM EDT us Rose Marie Sharma BENCH WORKER APPRENTICE LAB BLOOD ORDERABLES Final Res ult [facility] [address] [place] [phone] * Lipid Panel, Standard (06/29/2024 9:35 AM EDT) Triglycerides 53 <150 mg/dL [facility] Comment:Desirable Triglyceri de: less than 150 mg/dLBorderline High Triglyceride 150-199 mg/dLHigh Triglyceride: 200-499 mg/dLVery High Triglyceride: greater than or equal to 5OO mg/dL Cholesterol 161 <200 mg/dL [facility] Comment:Desirable Cholestero l: less than 200 mg/dLBorderline High Cholesterol: 200-239 mg/dLHigh Cholesterol: greater than 239 mg/dL LDL Cholesterol Calculated 99 <100 mg/dL [facility] Comment:Desirable LDL: less than 100 mg/dLNear Optimal/Above Optimal LDL: 110- 129 mg/dLBorderline High LDL: 130-159 mg/dLHigh LDL: 160-189 mg/dLVery High LDL: greater than or equal to 190 mg/dL HDL Cholesterol 52 >40 mg/dL [facility] Comment:Desirable HDL: great er than 40 mg/dL Note: This HDL assay may give artificially low results in patients with liver disease. Blood Venous blood specimen / Unknown 06/29/2024 9:35 AM EDT 06/29/2024 2:36 PM EDT Rose Marie Sharma BENCH WORKER APPRENTICE LAB BLOOD ORDERABLES Final Res ult [facility] [address] [place] [phone] * gFOBT (08/27/2022 11:52 AM EDT) Fecal Occult Blood 1 Negative Fecal Occult Blood 2 Negative Fecal Occult Blood 3 Negative 08/27/2022 11:5 2 AM EDT Historical Provider MD POINT OF CARE TEST ENTER/ EDIT ORDERABLES Final Result from Last 3 Months or Most Recently Relevant to Health Maintenance Insurance C3 Care Teams Test Fixture Designer Relationship Specialty Start Date End Date Anurag Washington MD [address] [place] [phone] PCP - General Internal Medicine 09/04/20
--- OUTSIDE RECORDS SUMMARY | 2025-03-24 08:07 | XMS_ITS | Encounter Summary ---
Author Organization [employer] Address [address] [facility] [address] [place] [address] Care Team Providers Care Senior Net Application Developer Name Role Phone Anurag Washington MD Primary Care Provider [phone] Encounter Details Date Type Department Care Team ([facility] Contact Info) Description 07/01/2024 Telephone C [facility] [address] [place], [place] [phone] Anurag Washington MD [address] [place], [place] [phone] Social History Tobacco Use Types Packs/Day Years [...] patient that her paperwork is ready for pear picker in medical records. documented in this encounter Plan of Treatment Upcoming Encounters Date Type Department Care Team (Late st Contact Info) Description 04/05/2025 9:00 AM EDT Procedure Visit [facility] [address] [place] [address] Polly Benz MD [address] [place] [address] documented as of this encounter Visit Diagnoses Not on filedocumented in this encounter Additional Health Concerns Assessment Noted Time PHQ-9 Depression Total Score: 0 06/25/20 24 3:00 PM EDT documented as of this encounter Care Teams Senior Net Application Developer Relationship Specialty Start Date End Date Anurag Washington MD [address] [place] [address] PCP - General Internal Medicine 09/04/20 documented as of this encounter
--- OUTSIDE RECORDS SUMMARY | 2025-03-24 08:07 | XMS_ITS | Encounter Summary ---
Author Organization [employer] [facility] Address [address] [place] [address] [address] [place] [address] Care Team Providers Care Photogrammetric Stereo Compiler Name Role Phone Anurag Washington MD Primary Care Provider [phone] Encounter Details Date Type Department Care Team ([facility] Contact Info) Description 03/11/2024 Orders Only [facility] MED [facility] PEDS [address] [place] [address] Anurag Washington MD [address] [place] [address] Social History Tobacco Use Types Packs/Day Years [...] Department Care Team (Late Contact Info) Description 04/05/2025 9:00 AM EDT Procedure Visit [facility] [address] [place] [address] Polly Benz MD 505 [place], [place] [phone] documented as of this encounter Visit Diagnoses Not on filedocumented in this encounter Care Teams Photogrammetric Stereo Compiler Relationship Specialty Start Date End Date Anurag Washington MD [address] [place] [address] PCP - General Internal Medicine 09/04/20 documented as of this encounter
--- OUTSIDE RECORDS SUMMARY | 2025-03-24 08:07 | XMS_ITS | Encounter Summary ---
Author Organization [employer] Address [address] [place] [address] [address] [place] [address] Care Team Providers Care Shove Up Name Role Phone Anurag Washington MD Primary Care Provider [phone] Reason for Referral * Imaging (Routine) - Closed Specialty Diagnoses / Procedures Referred By Roxanne salter Referred To Contact Radiology Diagnoses Right lower quadrant abdominal pain Procedures US Pelvis Transvaginal Anurag Washington MD [address] [place] [address] Phone: tel: fax: [address] Phone: tel: fax: Referral ID Status Reason Start Date Expiration Date Visits Re quested Visits Authorized [id number] Closed 07/09/2023 07/08/2024 1 1 Encounter Details Date Type Department Care Team ([facility] st Contact Info) Description 07/09/2023 Orders Only [facility] [address] [place] [address] Anurag Washington MD [address] [place] [address] Right lower quadrant abdominal pain (Primary Dx) [...] Description 04/05/2025 9:00 AM EDT Procedure Visit [facility] [address] [place] [address] Polly Benz MD [address] [place] [address] documented as of this encounter Procedures Procedure Name Priority Date/Time Associated Diagnosis Comments US PELVIS TRANSVAGINAL Routine 07/30/2023 11:25 AM EDT Right lower quadrant abdominal pain documented in this encounter Results * US Pelvis Transvaginal (07/30/2023 11:25 AM EDT) Anatomical Region Laterality Modality Pelvis Ultrasound 07/30/2023 11:2 5 AM EDT Narrative 07/31/2023 1:35 PM EDT ? [facility] ?[address] ?[place] [address] ? Ultrasound Report ? Signed ? Patient: Tanna Hinton ?MR#: [id number] ? : 1975 ?Acct:[id number] ? Age/Sex: 47 / F ?ADM Date: 07/30/23 ? Loc: HO.US ? Attending Dr: Anurag Washington MD ? Ordering Physician: Anurag Washington MD ?? Date of Service: 07/30/23 ?? Procedure(s): US pelvic and transvaginal ?? Accession Number(s): [id number] ? cc: Anurag Washington MD ? EXAMINATION: [...] need no follow up. ? Dictated By: ?oJrge Kilpatrick MD ? Signed By: ?<Electronically signed by Jorge Kilpatrick MD in OV> ? 07/31/23 1331 ? DD/ 1125 ? TD/TT: ? [employer] Member: SS ? 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
--- OUTSIDE RECORDS SUMMARY | 2025-03-24 08:07 | XMS_ITS | Clinical Summary ---
Author Organization [address] [place] [address] Address [address] [place] [address] Phone Care Team Providers Care Patient Financial Advocate Name Role Phone Physician, Pcp Unknown Primary [...] Encounters Date Type Department Care Team Description 03/21/2025 3:30 PM EDT Office Visit Orthopedic Surgery - [address] [phone] Francis Ling, DPM Ingrowing nail (Primary Dx); Diabetic mononeuropathy simplex ([facility] V24, CMS/HCC V28) from Last 3 Months [...] 12/20/2024 3:35 PM EST Plan of Treatment Health Maintenance Due Date Last Done Comments Breast Cancer Screening 1975 Diabetes: Annual GFR (Glomerular Filtration Rate) 1973 Diabetes: Annual Foot Exam 1983 Diabetes: Annual Retina Eye Exam 1983 Cervical Cancer Screening: P ap Smear 1994 COVID-19 Vaccine (2023-2 5 season) 2024 04/08/2021, 03/18/2021 Colorectal Cancer Screening: Colonoscopy 12/06/2024 Hepatitis C Screening 12/06/2024 Hypertension/CHF/CAD Annual BMP Blood Test 12/06/2024 Social Influencers of Health Screening 12/06/2024 Diabetes: Annual Urine Albumin-Creatinine Ratio (uACR) 03/22/2025 Diabetes: Blood Sugar Contro l Test (HGBA1C) 03/22/2025 06/29/2024 Depression Screening 06/25/2025 06/25/2024 Influenza Vaccine (Season Ended) 2025 DTaP,Tdap,and Td Vaccines (2 - Td or Tdap) 10/18/2025 10/18/2015 Cholesterol Screening (Lipid Panel) 06/29/2029 06/29/2024 Hepatitis B Vaccines Completed 03/14/2023, 09/09/2022, 08/12/2022 Zoster Vaccines Completed 10/24/2023, 08/22/2023 HIV Screening Completed 06/29/2024 Hepatitis A Vaccines Aged Out 01/17/2025 No long er eligible based on patient's age to complete this topic Pneumococcal Vaccine: 50+ Years Completed 01/17/2025 Pneumococcal Vaccine: Pediatrics (0 to 5 Years) and At-Risk Patients (6 to 64 Years) Completed 01/17/2025 HIB Vaccines Aged Out No [...] topic Insurance MEDICAID - [place] Care Teams Patient Financial Advocate Relationship Specialty Start Date End Date Physician, Pcp Unknown PCP - General 12/06/24
--- OUTSIDE RECORDS SUMMARY | 2025-03-24 08:07 | XMS_ITS | Encounter Summary ---
Author Organization [employer] Address [address] [facility] [address] [place] [address] Care Team Providers Care Aoc Plans Intelligence Officer Chief Name Role Phone Anurag Washington MD Primary Care Provider [phone] Encounter Details Date Type Department Care Team (Late Contact Info) Description 09/17/2023 Abstract [facility] MED[facility] [address] [place], [place] [phone] Tori Pastrana Social History Tobacco Use Types [...] Description 04/05/2025 9:00 AM EDT Procedure Visit [facility] P[facility]S [address] [place] [address] Polly Benz MD [address] [place] [address] documented as of this encounter Procedures Procedure [...] on filedocumented in this encounter Care Teams Aoc Plans Intelligence Officer Chief Relationship Specialty Start Date End Date Anurag Washingotn MD [address] [place] [address] PCP - General Internal Medicine 09/04/20 documented as of this encounter
--- OUTSIDE RECORDS SUMMARY | 2025-03-24 08:07 | XMS_ITS | Encounter Summary ---
Author Organization [facility] Address [address] [place] [address] Care Team Providers Care Subassembler Name Role Phone Physician, Pcp Unknown Primary Care Provider Whitney vailable Reason for Visit * Reason Comments Follow-up Ingrown Toenail Encounter Details Date Type Department Care Team ([facility] st Contact Info) Description 03/21/2025 3:30 PM EDT Office Visit Orthopedic Surgery - [place] [address] [phone] Francis Ling DPM [address] [address] Ingrowing nail (Primary Dx); Diabetic mononeuropathy simplex (CMS/HCC V24, CMS/HCC V28) Social History Tobacco Use Types Packs/Day Years Used Date Smoking Tobacco: Never Assessed Comments Unknown Sex and Gender Information Value Date Recorded Sex Assigned at Not on file Legal Sex Female 3:32 PM EST Gender Identity Not on file Sexual Orientation Not on file documented as of this encounter Progress Notes * Francis Ling DPM - 03/21/2025 3:30 PM EDT S Patient presents complaint of chronic pain discomfort of both feet she has chronic recurring ingrown nails show she has not had any redness or swelling does not that corners of her right foot left foot seem to grow in her skin and do bother her continues to report baseline numbness burning tinglingto her feet ROS: GENERAL: Pt denies nausea, fever, vomiting, chills, or shortness of breath. Pt in NAD. CARDIOLOGY: pt denies chest pain, palpitations LUNGS: pt denies shortness of breath MUSCULOSKELETAL: See HPI, otherwise no joint pain or swelling, back pain, or muscle pain. SKIN: see HPI, otherwise no lesions, rash or itching NEURO: No persistent headache, weakness or numbness The remainder of the review of systems is noncontributory PAST MEDICAL HISTORY: Patient Active Problem List Diagnosis Benign paroxysmal positional vertigo Essential hypertension Gastroesophageal reflux disease Iron deficiency anemia Seasonal allergies Vitamin D deficiency SOCIAL HISTORY: Social History Tobacco Use Smoking status: Not on file Smokeless tobacco: Not on file Substance Use Topics Alcohol use: Not on file ACTIVE MEDICATIONS: No outpatient medications have been marked as taking for the 03/21/25 encounter (Office Visit) with Francis Ling DPM. ALLERGIES: Allergies Allergen Reactions Lisinopril Cough Other Certain types of cheeses, mushrooms, nuts (pt unable to identify further) Oxycodone-Acetaminophen PHYSICAL EXAM: There were no vitals taken for this visit. PODIATRIC EXAMINATION: GENERAL: Patient appears well nourished, with NAD. VASCULAR: Dorsalis pedis pulses are 2/4 bilaterally and Posterior tibial pulses are 2/4 bilaterally. Capillary filling time within normal limits the digits. No pallor on elevation or rubor on dependency. No varicosities. Denies rest pain or claudication pain. NEUROLOGICAL: Sharp/dull sensation , protective sensation 8/10 with 5.07 semmes wesly bilaterally, vibratory sensation with tuning fork intact to the tibial tuberosity. ORTHOPEDIC: Good muscle strength 5/5 of all flexors and extensors. Dorsi flexion of ankle ,10 degrees, plantar flexion WNL. No muscle atrophy. DERMATOLOGICAL:. Ingrown nail right great toe medial border ingrown nail plate left great toe medial lateral border BIOMECHANICS: Ankle ROM WNL, STJ ROM wnl, MTJ ROM wnl, 1st MPJ ROM wnl. IMAGING: IMPRESSION: 1. Ingrowing nail 2. Diabetic mononeuropathy simplex ([facility] V24, [facility] V28) PLAN: Pt was seen and examined, history reviewed. Discussed with patient regarding proper glucose control, exercise, and diet. Explained to patient proper shoe gear, and importance of daily foot checks. I reviewed neuropathy and why it occurs in diabetics. I educated the patient on proper blood sugar control and the importance of an HgBA1c of less than 7.0%. I reviewed the signs and symptoms of neuropathy with the patient Recurring ingrown nails were discussed and reviewed with mild surgical procedure reviewed Minor surgical procedure of nail removal with matrixectomy was discussed and reviewed versus nail removal discussed with patient risks of nail procedure including scar tissue formation reoccurrence loss of more nail deformity cosmetic changes that are undesirable Ingrown portions removed with immediate relief Pt to return for another evaluation in 3 months Francis Ling DPM documented in this encounter Plan of Treatment Not on file documented as of this encounter Visit Diagnoses Diagnosis Ingrowing nail- Primary Diabetic mononeuropathy simplex ([facility] V24, [facility] V28) Type II or unspecified type diabetes mellitus with neurological manifestations, not stated as uncontrolled documented in this encounter Care Teams Subassembler Relationship Specialty Start Date End Date Physician, Pcp Unknown PCP - General 12/06/24 documented as of this encounter
--- OUTSIDE RECORDS SUMMARY | 2025-03-24 08:07 | XMS_ITS | Data Portability ---
Author Organization [place] - [facility], Allergy Address [address] [place] [id number] Care Team Providers Care Metal Bumper Name Role Phone KRISTA PRATHER Primary Care Provider KRISTA PRATEHR Referring Provider Assessment Encounter Date Assessment Date Assessment LastModified by Organization Details LastModified Time 04/28/2024 04/28/2024 Still notes nasa l congestion despite antihistamines and nasal sprays. Allergy testing trees, grass, mold and dust. CT today no sinus disease with lucency around left molar At this point she would like to hold off on any surgical intervention or resuming immunotherapy. We discussed with an theatre arts professor #[id number] but I would recommend dental evaluation for [...] w/o contrast 2023 024 thad [facility], [address] [place] [address], [place], [address], 15:00:35 Medication Orders azelasti ne 137 mcg (0.1 %) nasal spray [address] [facility], [address] , [place], [place], [id number], 10:25:16 Patient TargetsNo targets recorded. Patient InstructionsNo instructions recorded. Reason for Referral None Reported. Results Created Date Observation Date Name Description Value Unit Range Abnormal Flag Note LastModifiedBy Organization Detail LastModifiedTime 04/28/20 CT, sinus es, w/o contr ast No observ ation record ed. [facility] Of [address], [address], 04/28/2024 14:58:59 05/05/20 24 04/28/2024 CT, sinus es, w/o contr ast No observ ation record ed. [facility] [address], [address], 05/05/2024 08:26:29 07/06/20 24 11/23/2021 imagi ng/di [...] Organization Details Recorded Time Chronic pansinusi tis 57260915 Active 2015 Chronic pansinusit is; Note: Date Diagnosed: 08/14/2016 4:18 PM (J32.4) Not Available [facility] 02:13:38 Mild intermitt ent asthma 430902787 Active 2019 Mild intermitte nt asthma, uncomplica armando; Note: Date Diagnosed: 10/19/2020 9:38 AM (J45.20) Not Available [facility] 02:15:41 Allergic rhinitis 53193328 Active 2020 Allergic rhinitis: Due to other [...] AM (477.8) Note: Date Diagnosed Not Available [facility] 4 00:49:48 Abnormal auditory perceptio n 79345692 Active 2021 Other abnormal auditory perception s, bilateral; Note: Date Diagnosed: 11/23/2021 3:39 PM (H93.293) Not Available [facility] 4 02:15:15 Uncomplic ated mild persisten t asthma 613326943 Active 2016 Mild persistent asthma, uncomplica armando; Note: Date Diagnosed: 11/22/2016 4:41 PM (J45.30) Not Available [facility] 4 02:15:24 Acute upper respirato ry infection 48655952 Active 2017 Acute upper respirator y infection, unspecifie d; Note: Date Diagnosed: 12/03/2017 3:52 PM (J06.9) Not Available [facility] 4 02:15:56 Deviated nasal septum 061167838 Active 2023 BOB DOS SANTOS MD [address] [place] [address], [place], [address] , [facility] - [facility] 4 14:58:39 Hypertrop hy of nasal turbinate s 56227827 Active 2023 Hypertroph y of nasal turbinates ; Note: Date Diagnosed: 03/08/2024 11:33 AM (J34.3) Not Available [facility] 4 02:12:52 Problem Notes None recorded. Procedures Surgical History None recorded. Imaging Results Imaging Date Name Status LastModified by [facility] Details LastModified Time 04/28/2024 CT, sinuses, w/o contrast completed [facility] [address], [address], 04/28/2024 14:58:59 04/28/2024 CT, sinuses, w/o contrast completed [facility] [place] [address], [place], [address], 05/05/2024 08:26:29 11/23/2021 imaging/diagno stic result completed [...] 50 mg tablet active Medicati on ID: [id number] B rand Name: losartan Send Method: E-Prescr ibed Sub s Allowed: subs OK Speci al Instruct ion: TAKE ONE TABLET DAILY Me dication GenericN lucille: losartan Not Available Not Available Not Available oxybutyni n chloride ER 10 mg tablet,ex tended release 24 hr 07/27 completed Medicati on ID: [id number] D uration Value: 30 Reason: () Brand Name: oxybutyn in chloride Send Method: E-Prescr ibed Sub s Allowed: subs OK Speci al Instruct ion: TAKE ONE TABLET BY MOUTH EVERY DAY Medi cationGe nericNam e: oxybutyn in chloride Not Available Not Available Not Available atenolol 25 mg tablet 03/11 completed Medicati on ID: [id number] B rand Name: atenolol Send Method: E-Prescr ibed Sub s Allowed: subs OK Medic ationGen ericName : atenolol Not Available Not Available Not Available Zyrtec 10 mg tablet 03/22 completed Medicati on ID: [id number] B rand Name: Zyrtec S end Method: E-Prescr ibed Sub s Allowed: subs OK Speci al Instruct ion: Take 1 tablet by mouth every day Medi cationGe nericNam e: Zyrtec Not Available Not Available Not Available amlodipin e 5 mg tablet 01/20 completed Medicati on ID: [id number] B rand Name: amlodipi ne Send Method: E-Prescr ibed Sub s Allowed: subs OK Medic ationGen ericName : amlodipi ne Not Available Not Available Not Available magnesium oxide 400 mg (241.3 mg magnesium ) tablet 01/20 completed Medicati on ID: [id number] D uration Value: 30 Brand Name: magnesiu m oxide Se nd Method: E-Prescr ibed Sub s Allowed: subs OK Speci al Instruct ion: TAKE ONE TABLET BY MOUTH EVERY DAY DIRECTED Medicat ionGener icName: magnesiu m oxide Not Available Not Available Not Available amlodipin e 10 mg tablet 03/22 completed Medicati on ID: [id number] B rand Name: amlodipi ne Send Method: E-Prescr ibed Sub s Allowed: subs OK Speci al Instruct ion: TAKE ONE TABLET BY MOUTH EVERY DAY Medi cationGe nericNam e: amlodipi ne Not Available Not Available Not Available benzonata te 100 mg capsule 03/22 completed Medicati on ID: [id number] B rand Name: benzonat ate Send Method: E-Prescr ibed Sub s Allowed: subs OK Speci al Instruct ion: TAKE ONE CAPSULE THREE TIMES DAILY NEEDED FOR COUGH Me dication GenericN lucille: benzonat ate Not Available Not Available Not Available Banophen 25 mg tablet 03/22 completed Medicati on ID: [id number] B rand Name: Banophen Send Method: E-Prescr ibed Sub s Allowed: subs OK Speci al Instruct ion: TAKE ONE TABLET AT BEDTIME NEEDED FOR COUGH Me dication GenericN lucille: Banophen Not Available Not Available Not Available monteluka st 10 mg tablet Take 1 tablet by mouth 08/12 completed Medicati on ID: [id number] R niharika: () Brand Name: monteluk ast Send Method: E-Prescr ibed Sub s Allowed: subs OK Speci al Instruct ion: Take 1 tablet by mouth every day in the evening Medicati onGeneri cName: monteluk ast Not Available Not Available Not Available hydrochlo rothiazid e 25 mg tablet 1 tablet by mouth 2015 active Medicati on ID: [id number] D uration Value: 30 Brand Name: hydrochl [...] unit) capsule 07/27 completed Medicati on ID: [id number] D uration Value: 28 Reason: () Brand Name: Vitamin D2 Send Method: E-Prescr ibed Sub s Allowed: subs OK Speci al Instruct ion: TAKE ONE CAPSULE EVERY WEEK FOR 12 WEEKS Me dication GenericN lucille: Vitamin D2 Not Available Not Available Not Available fluticaso ne propionat e 50 mcg/actua tion nasal spray,vani pension 2 puff into both nostrils 2019 active Medicati on ID: [id number] D uration Value: 30 Brand Name: fluticas one propiona te Send Method: E-Prescr ibed Sub s Allowed: subs OK Medic ationGen ericName : fluticas one propiona te Not Available Not Available Not Available naproxen 500 mg tablet 01/05 completed Medicati on ID: [id number] D uration Value: 10 Reason: () Brand Name: naproxen Send Method: E-Prescr ibed Sub s Allowed: subs OK Speci al Instruct ion: TAKE ONE TABLET BY MOUTH TWICE DAILY WITH FOOD Med icationG enericNa me: naproxen Not Available Not Available Not Available Vitamin D3 25 mcg (1,000 unit) capsule 07/27 completed Medicati on ID: [id number] R niharika: () Brand Name: Vitamin D3 Send Method: E-Prescr ibed Sub s Allowed: subs OK Medic ationGen ericName : Vitamin D3 Not Available Not Available Not Available ProAir HFA 90 mcg/actua tion aerosol inhaler 2 puff 03/31 completed Medicati on ID: [id number] D uration Value: 30 Prescri bed By Name: Marysol Alvarez nd Name: ProAir HFA Send Method: E-Prescr ibed Sub s Allowed: subs OK Medic ationGen ericName : ProAir HFA Not Available Not Available Not Available Fiber Laxative (methylce llulose) 500 mg tablet 01/20 completed Medicati on ID: [id number] D uration Value: 30 Brand Name: Fiber Laxative (methylc ellulo) Send Method: E-Prescr ibed Sub s Allowed: subs OK Speci al Instruct ion: TAKE TWO TABLETS DAILY WITH 8oz of WATER Me dication GenericN lucille: Fiber Laxative (methylc ellulo) Not Available Not Available Not Available cholecalc iferol (vitamin D3) 50 mcg (2,000 unit) capsule active Medicati on ID: [id number] B rand Name: cholecal ciferol (vitamin D3) Send Method: E-Prescr ibed Sub s Allowed: subs OK Speci al Instruct ion: TAKE ONE CAPSULE DAILY Me dication GenericN lucille: cholecal ciferol (vitamin D3) Not Available Not Available Not Available Toviaz 4 mg tablet,ex tended release 12/16 completed Medicati on ID: [id number] R niharika: () Brand Name: Toviaz S end Method: E-Prescr ibed Sub s Allowed: subs OK Medic ationGen ericName : Toviaz Not Available Not Available Not Available omeprazol e magnesium 20 mg capsule,d elayed release 2015 active Medicati on ID: [id number] B rand Name: omeprazo le magnesiu m Send Method: E-Prescr ibed Sub s Allowed: subs OK Medic ationGen ericName : omeprazo le magnesiu m Not Available Not Available Not Available EpiPen 2-Hunter 0.3 mg/0.3 mL injection , auto-inje ctor 1 pen injector intramus cularly 2016 active Medicati on ID: [id number] D uration Value: 180 Prescri bed By Name: Bob croft M.D. Bra nd Name: EpiPen 2-Hunter Se nd Method: E-Prescr ibed Sub s Allowed: subs OK Medic ationGen ericName : EpiPen 2-Hunter Not Available Not Available Not Available ferrous sulfate 220 mg (44 mg iron)/5 mL oral elixir 03/03 completed Medicati on ID: [id number] R niharika: () Brand Name: ferrous sulfate Send Method: E-Prescr ibed Sub s Allowed: subs OK Medic ationGen ericName : ferrous sulfate Not Available Not Available Not Available Tab-A-Vit e Multivita min w-iron 15 mg iron-400 mcg tablet 03/22 completed Medicati on ID: [id number] B rand Name: Tab-A-Vi te Multivit anton [...] Updated DateTime 04/28/2024 127 cm 64.7 kg/m2 179571.25 g Vadim Ferris [place] - [facility] 04/28/2024 14:45:47 Social History None recorded. Functional Status None recorded. Mental Status None recorded. Family History Nothing Reported. Medical History No medical history recorded. Gynecological HistoryNo gynecological history recorded. Obstetrics History GPAL:G 0 P 0 0 0 0 Past Encounters Encounter ID Performer Location Encounter Start Date Encounter Closed Date Diagnosis/Indication Diagnosis SNOMED-CT Code Diagnosis ICD10 Code Diagnosis Note [id number] BOB DOS SANTOS MD [facility] [address] [address] 04/28/2024 14:01:27 04/28/2024 15:00:34 Allergic rhinitis 04688617 J30.9 Deviated nasal septum 12 7741142 J34.2 Health Concerns Section Related Observation LastModified by Organization Detai ls LastModified Time None Recorded Concern Status LastModified by Organization Details LastModified Time None Recorded Advance Directives Directive None Recorded Payers Insurance Date Sequence Insurance Name Policy Number Policy Thomas Covered Member ID Thomas Member ID Guarantor Name 04/28/2024 1 [place] [facility] PLAN Tanna Hinton [id number] Tanna Hinton Notes Date Note Type Note Provider Name and Address Organization Details Recorded Time 04/28/2024 text/html Still notes nasa l congestion despite antihistamines and nasal sprays. Allergy testing trees, grass, mold and dust. CT today no sinus disease with lucency around left molar BOB WRAY MD [address] [place] [address], [phone], [place] - [facility] 04/28/2024 15:00:10 OBGyn Episode No OBEpisode recorded.
--- OUTSIDE RECORDS SUMMARY | 2025-03-24 08:07 | XMS_ITS | Encounter Summary ---
Author Organization [employer] Address [address] [place] [address] 7 [place] [address] Care Team Providers Care Office Supervisor Name Role Phone Anurag Washington MD Primary Care Provider [phone] Encounter Details Date Type Department Care Team ([facility] Contact Info) Description 08/12/2023 Orders Only [facility] [address] [place], [place] [phone] Anurag Washington MD [address] [place], [place] [phone] Cysts of both ovaries (Primary Dx); Intramural [...] Description 04/05/2025 9:00 AM EDT Procedure Visit [facility] [address] [place], [place] [phone] Polly Benz MD [address] [place], [place] [phone] documented as of this encounter Visit Diagnoses Diagnosis Cysts of both ovaries- Primary Other and unspecified ovarian cyst Intramural uterine fibroid documented in this encounter Care Teams Office Supervisor Relationship Specialty Start Date End Date Anurag Washington MD [address] [place] [id number] PCP - General Internal Medicine 09/04/20 documented as of this encounter
--- OUTSIDE RECORDS SUMMARY | 2025-03-24 08:07 | XMS_ITS | Encounter Summary ---
Author Organization [employer] Address [address] [place] [address] 7 [place] [address] Care Team Providers Care Optometric Tech Name Role Phone Anurag Washington MD Primary Care Provider [phone] Encounter Details Date Type Department Care Team ([facility] Contact Info) Description 11/29/2022 Orders Only [facility] [address] [place] [address] Keeley Bassett LPN Social History Tobacco Use [...] Upcoming Encounters Date Type Department Care Team ([facility] Contact Info) Description 04/05/2025 9:00 AM EDT Procedure Visit [facility] [address] [place] [address] Polly Benz MD [address] [place] [address] documented as of this encounter Visit Diagnoses Not on filedocumented in this encounter Care Teams Optometric Tech Relationship Specialty Start Date End Date Anurag Washington MD [address] [place] [id number] PCP - General Internal Medicine 09/04/20 documented as of this encounter
[2025-04-25 15:44] VITALS: BMI 45.9
--- NOTE | 2025-04-26 11:53 | HO.ANESPROP2 ---
Documented by User: Renuka Mueller NP 04/26/25 11:53 HPI - Anesthesia Eval Consult details Narrative: 49yo F for Colonoscopy PMFSH Active Problems Active Problems: All Active Problems Hepatic steatosis (Acute) Pre-op examination (Acute) Diverticulosis (Acute) Perimenopause (Acute) Cervical cancer screening (Acute) History of endometrial hyperplasia (Acute) Abdominal bloating (Acute) Constipation (Acute) GERD (gastroesophageal reflux disease) (Acute) Hepatic cyst (Acute) Past Medical History Medical History Asthma HTN (hypertension) Family History Family History Father No problems noted. Mother HTN (hypertension) Family history of problems with anesthesia: No Surgical History Surgical History Hx of colonoscopy History of Problems with Anesthesia: No Social History Social History Household Members: None Household Members Other:: lives alone Housing: Apartment Are you a primary nurse care manager to a significant other at home: No Do you presently have visiting nurse or other home services: No Alcohol intake: former Patient Tobacco Use Status: Never used Tobacco Use of substances other than those prescribed or required for medical reasons: No Have you been hit, kicked, punched, or otherwise hurt by someone within the past year? If so, by whom?: No Advance Directives: No Advance Directives Information Provided: Yes Poor oral hygiene: No Meds Allergies Allergy/AdvReac Type Severity Reaction Status Date / Time oxycodone Allergy Intermediate itchy Verified 11/05/24 12:28 Home Medications ?Medication ?Instructions ?Recorded ?Confirmed ?Last Taken ?Type albuterol sulfate 90 mcg/actuation 2 puff inhalation NEEDED PRN 02/05/21 10/28/24 Unknown History aerosol inhaler Wheezing cholecalciferol (vitamin D3) 50 50 mcg PO DAILY 02/05/21 10/28/24 Unknown History mcg (2,000 unit) capsule epinephrine 0.3 mg/0.3 mL 0.3 ml IM DIRECTED PRN 02/05/21 10/28/24 Unknown History injection, auto-injector anaphylaxsis hydrochlorothiazide 25 mg tablet 25 mg PO DAILY 02/05/21 10/28/24 10/27/24 History losartan 50 mg tablet 50 mg PO QAM 10/27/24 10/28/24 10/27/24 History Exam Height,Weight and Vital Signs: Height 5 ft 1 in Weight 110.223 kg Assessment and Plan Assessment Anesthesia Assessment: Chart Reviewed Final Anesthetic Review Family History of Problems with Anesthesia: No History of Problems with Anesthesia: No Documented by User: Mounika Carter MD 04/27/25 11:51 [facility] Past Medical History Medical History Asthma HTN (hypertension) Family History Family History Father No problems noted. Mother HTN (hypertension) Surgical History Surgical History Hx of colonoscopy Social History Social History Household Members: None Household Members Other:: lives alone Housing: Apartment Are you a primary nurse care manager to a significant other at home: No Do you presently have visiting nurse or other home services: No Alcohol intake: former Patient Tobacco Use Status: Never used Tobacco Use of substances other than those prescribed or required for medical reasons: No Have you been hit, kicked, punched, or otherwise hurt by someone within the past year? If so, by whom?: No Advance Directives: No Advance Directives Information Provided: Yes Poor oral hygiene: No Meds Allergies Allergy/AdvReac Type Severity Reaction Status Date / Time oxycodone Allergy Intermediate itchy Verified 11/05/24 12:28 Home Medications ?Medication ?Instructions ?Recorded ?Confirmed ?Last Taken ?Type albuterol sulfate 90 mcg/actuation 2 puff inhalation NEEDED PRN 02/05/21 10/28/24 Unknown History aerosol inhaler Wheezing cholecalciferol (vitamin D3) 50 50 mcg PO DAILY 02/05/21 10/28/24 Unknown History mcg (2,000 unit) capsule epinephrine 0.3 mg/0.3 mL 0.3 ml IM DIRECTED PRN 02/05/21 10/28/24 Unknown History injection, auto-injector anaphylaxsis hydrochlorothiazide 25 mg tablet 25 mg PO DAILY 02/05/21 10/28/24 10/27/24 History losartan 50 mg tablet 50 mg PO QAM 10/27/24 10/28/24 10/27/24 History Exam Airway Mallampati Class: II TM Dist: >3cm Neck ROM: Full Heart: rrr Lungs: cta Assessment and Plan Assessment Anesthesia Assessment: Anesthesia Plan Discussed Final Anesthetic Review NPO: Yes ASA Class: II Final Preanesthetic Review: No Changes in Pt Med Stat, Meds/Allgs Chart Reviewed, Consent Obtained/Reviewed and Anes Risks/Benef Reviewed Patient Risk: Low Procedure Risk: Low Anesthetic Plan Anesthetic Plan: MAC: Disposition: Standard PACU
[2025-04-27 10:09] VITALS: BMI 44.2
[2025-04-27 10:27] VITALS: BP 151/86; PULSE 87; RESP 18; TEMP 36.5; O2SAT 96
[2025-04-27] MEDS: Lactated Ringers 1,000 ML 100 ML IVCONT (10:35)
--- NOTE | 2025-04-27 12:01 | P.HPSUR_ITS ---
Pre-Procedural Eval Section A - 24 Hr Update-Section A only Date of Service: 04/27/25 Section B - Complete if H&P > 30 days Chief Complaint: Abdominal distension (gaseous),constipation Relevant Family History (Specify if Yes): No Relevant Social History: None Present Medications: see Short Stay Collaborative assessment Medical History: Significant History (asthma, htn,diverticulosis) History of Previous Operations: Relevant previous surgery/procedure and date(s) (colonoscopy ) Allergies: Allergies Allergy/AdvReac Type Severity Reaction Status Date / Time oxycodone Allergy Intermediate itchy Verified 11/05/24 12:28 Review of Systems Sugical H&P ROS: Negative: Constitution, Cardiovascular, Respiratory, Neurological, Psychiatric, Hem-Onc, Allergic/Immunologic, Gastrointestinal, Genitourinary, Musculoskeletal, Integumentary, Endocrine and Eyes/Ears/Nose /Throat Exam Surgical H&P Exam: Normal: HEENT, Normal: Heart, Normal: Lungs, Normal: Extremities, Normal: Abdomen, Normal: Skin and Normal: Neurological Plan Diagnosis/Plan: Unchanged I have reviewed the history and physical and performed a pertinent physical examination on my patient. No changes have occurred unless specified. Time Spent With Patient Time: Total time managing care of this patient today ____ minutes.
--- NOTE | 2025-04-27 12:37 | P.OPN-COLO_ITS ---
Colonoscopy Operative Note Operative Note Date of Service: 04/27/25 Narrative: Operative Information Procedure Description: Colonoscopy Indication: screening Anesthesia: MAC COLONOSCOPY Instrument: Olympus variable stiffness pediatric scope 190L Colonoscopy Monitoring: Vital signs and clinical assessment, continuous EKG monitoring, Pulse oximetry, Carbon Dioxide monitoring and blood pressure monitoring were done throughout the procedure. Colon withdrawal time was 9 minutes. Procedure: The patient was placed in the left lateral decubitis position and pre-procedure medications were administered. After a digital rectal examination of the ano-rectum, the video colonoscope was inserted into the rectum and advanced through the colon to the cecum/TI. The colonoscope was slowly withdrawn in a retrograde panoramic fashion and the colon mucosa was carefully examined including a retroflexed view of the rectum. Findings and interventions are described below. Procedure Difficulty: easy Findings: Terminal Ileum-normal Cecum:normal Right sided retroflexion- normal Ascending Colon: normal Transverse Colon -normal Descending Colon:normal Sigmoid Colon: normal Rectum: Retroflexion with small internal hemorrhoids seen, grade I Anorectum - normal Intervention: none Colon preparation: [place] Bowel Preparation Scale Right colon; 2 Transverse colon: 2 Left colon; 2 (0 = Unprepared colon segment with mucosa not seen due to solid stool that cannot be cleared. 1 = Portion of mucosa of the colon segment seen, but other areas of the colon segment not well seen due to staining, residual stool and/or opaque liquid. 2 = Minor amount of residual staining, small fragments of stool and/or opaque liquid, but mucosa of colon segment seen well. 3 = Entire mucosa of colon segment seen well with no residual staining, small fragments of stool or opaque liquid) Impression and Post Procedure Diagnosis: internal hemorrhoids Plan: High fiber diet leaflet Avoid straining at stool, epsom salts and sitz bath, anusol supps or cream Repeat Colonoscopy in 10 years or earlier if clinically indicated Above findings were reviewed with the patient and relevant handouts were provided if indicated.
[2025-04-27 12:44] VITALS: BP 95/50; PULSE 89; RESP 16; TEMP 37; O2SAT 96
[2025-04-27 12:49] VITALS: BP 101/53; PULSE 77; RESP 16; O2SAT 97
[2025-04-27 12:52] VITALS: PULSE 77; RESP 16; O2SAT 97
[2025-04-27 13:07] VITALS: BP 118/65; PULSE 76; RESP 16; TEMP 37; O2SAT 97
== END 2025-04-27 14:09 | disposition home or self-care (01) ==
PROVIDERS: PCP Internal Medicine; Visit Provider Internal Medicine Gastroenterology
PROC: 0DJD8ZZ Inspection of Lower Intestinal Tract, Via Natural or Artificial Opening Endoscopic (ICD-10-PCS; CPT 45378; principal; 2025-04-27 11:00)
DX: Z12.11 Encounter for screening for malignant neoplasm of colon (principal); K59.00 Constipation, unspecified; R14.0 Abdominal distension (gaseous); K64.0 First degree hemorrhoids; K76.0 Fatty (change of) liver, not elsewhere classified; K21.9 Gastro-esophageal reflux disease without esophagitis; I10 Essential (primary) hypertension; J45.909 Unspecified asthma, uncomplicated; Z88.5 Allergy status to narcotic agent; Z79.899 Other long term (current) drug therapy
CPT/HCPCS: 45378; J2003; J2704

== ENCOUNTER → 2025-04-27 08:22 | Outpatient (BNV) | payer MEDICAID, SELFPAY | PROVIDERS: PCP Internal Medicine; Visit Provider Internal Medicine Gastroenterology | DX: Z12.11 Encounter for screening for malignant neoplasm of colon (principal); K64.0 First degree hemorrhoids | CPT/HCPCS: 45378 ==

== ENCOUNTER 2025-08-03 07:09 | Outpatient (REF) | payer OTHER, SELFPAY ==
--- OUTSIDE RECORDS SUMMARY | 2025-08-03 07:13 | XMS_ITS | Encounter Summary ---
Author Organization [employer] Address [address] [place] [address] [facility] [place] [address] Care Team Providers Care Take Up Operator Name Role Phone Anurag Washington MD Primary Care Provider [phone] Reason for Referral * Imaging (Routine) - Closed Specialty Diagnoses / Procedures Referred By Roxanne salter Referred To Contact Radiology Diagnoses Right lower quadrant abdominal pain Procedures US Pelvis Transvaginal Anurag Washington MD [address] [place] [address] Phone: tel: fax: [address] Phone: tel: fax: Referral ID Status Reason Start Date Expiration Date Visits Re quested Visits Authorized [id number] Closed 07/09/2023 07/08/2024 1 1 Encounter Details Date Type Department Care Team ([facility] st Contact Info) Description 07/09/2023 Orders Only [facility] CHC MED & PEDS [address] [place], [place] [phone] Anurag Washington MD [address] [place], [place] [phone] Right lower quadrant abdominal pain (Primary Dx) [...] Care Team (Late st Contact Info) Description 08/08/2025 9:30 AM EDT Office Visit [facility] MED & PEDS [address] [place] [address] Anurag Washington MD [address] [place] [address] documented as of this encounter Procedures Procedure Name Priority Date/Time Associated Diagnosis Comments US PELVIS TRANSVAGINAL Routine 07/30/2023 11:25 AM EDT Right lower quadrant abdominal pain documented in this encounter Results * US Pelvis Transvaginal (07/30/2023 11:25 AM EDT) Anatomical Region Laterality Modality Pelvis Ultrasound 07/30/2023 11:2 5 AM EDT Narrative 07/31/2023 1:35 PM EDT [address] [address] Ultrasound Report Signed Patient: Tanna Hinton MR#: [id number] : 1975 Acct:[id number] Age/Sex: 47 / F ADM Date: 07/30/23 Loc: HO.US Attending Dr: Anurag Washington MD Ordering Physician: Anurag Washington MD Date of Service: 07/30/23 Procedure(s): US pelvic and transvaginal Accession Number(s): [id number] cc: Anurag Washington MD EXAMINATION: US PELVIS [...] in OV> 07/31/23 1331 DD/ 1125 TD/TT: Electro Mechanic: SS Procedure Note Donotuseinterpreter, Image - 07/31/2023 [place] [address] Ultrasound Report Signed Patient: James Hinton#: [id number] : 1975Acct:[id number] Age/Sex: 47 / FADM Date: 07/30/23 Loc: HO.US Attending Dr: Anurag Washington MD Ordering Physician: Anurag Washington MD Date of Service: 07/30/23 Procedure(s): US pelvic and transvaginal Accession Number(s): [id number] cc: Anurag Washington MD EXAMINATION: US PELVIS [...] in OV> 07/31/23 1331 DD/ 1125 TD/TT: Electro Mechanic: SS us Anurag Washington MD IMG US PROCEDURES Final Res ult documented in this encounter Visit Diagnoses Diagnosis Right lower quadrant abdominal pain- Primary documented in this encounter Care Teams Take Up Operator Relationship Specialty Start Date End Date Anurag Washington MD [address] [place] [address] PCP - General Internal Medicine 09/04/20 documented as of this encounter
--- OUTSIDE RECORDS SUMMARY | 2025-08-03 07:13 | XMS_ITS | Encounter Summary ---
Author Organization [email or web address] [facility] Address [address] [place] [address] 7 [place] [address] Care Team Providers Care Flight Service Agent Name Role Phone Anurag Washington MD Primary Care Provider [phone] Encounter Details Date Type Department Care Team ([facility] Contact Info) Description 03/11/2024 Orders Only [facility] MED & PEDS [address] [place] [address] Anurag Washington MD [address] [place] [address] Social History Tobacco Use Types Packs/Day Years [...] Upcoming Encounters Date Type Department Care Team ([facility] Contact Info) Description 08/08/2025 9:30 AM EDT Office Visit [facility] CHC MED & PEDS [address] [place] [address] Anurag Washington MD [address] [place] [address] documented as of this encounter Visit Diagnoses Not on filedocumented in this encounter Care Teams Flight Service Agent Relationship Specialty Start Date End Date Anurag Washington MD [address] [place] [address] PCP - General Internal Medicine 09/04/20 documented as of this encounter
--- OUTSIDE RECORDS SUMMARY | 2025-08-03 07:13 | XMS_ITS | Encounter Summary ---
Author Organization [facility] Address [address] [place] [address] 7 [place] [address] Care Team Providers Care Editor Trade Journal Name Role Phone Anurag Washington MD Primary Care Provider [phone] Encounter Details Date Type Department Care Team ([facility] Contact Info) Description 08/12/2023 Orders Only [facility] MED & PEDS [address] [place] [address] Anurag Washington MD [address] [place] [address] Cysts of both ovaries (Primary Dx); Intramural [...] Department Care Team (Late Contact Info) Description 08/08/2025 9:30 AM EDT Office Visit [facility] MED & PEDS [address] [place] [address] Anurag Washington MD [address] [place] [address] documented as of this encounter Visit Diagnoses Diagnosis Cysts of both ovaries- Primary Other and unspecified ovarian cyst Intramural uterine fibroid documented in this encounter Care Teams Editor Trade Journal Relationship Specialty Start Date End Date Anurag Washington MD [address] [place] [address] PCP - General Internal Medicine 09/04/20 documented as of this encounter
--- OUTSIDE RECORDS SUMMARY | 2025-08-03 07:13 | XMS_ITS | Encounter Summary ---
Author Organization [employer] Address [address] [facility] 7 [place] [address] Care Team Providers Care Oil Pit Attendant Name Role Phone Anurag Washington MD Primary Care Provider [phone] Reason for Visit * Reason Comments Pre-visit Planning SDOH screening compl eted on 03/18/25 Encounter Details Date Type Department Care Team ([facility] Contact Info) Description 08/02/2025 Patient Outreach [facility] MEDICINE [address] [place] [address] Anurag Washington MD [address] [place] [address] Pre-visit Planning (SDOH screening completed on 03/18/25 ) Social History Tobacco Use Types Packs/Day Years Used Date Smoking Tobacco: Never Passive Smoke Exposure: Current Smokeless Tobacco: Never Alcohol Use Standard Drinks/Week Comments Never 0 (1 standard drink = 0.6 oz pur e alcohol) Depression Answer Date Recorded Patient Health Questionnaire-9 [...] Access Q2 Not on file 07/19/2024 Comments No Sex and Gender Information Value Date Recorded Sex Assigned at Female 09/16/2022 10:28 AM EDT Legal Sex Female 10:28 AM EDT Gender Identity Female 09/16/2022 10:28 AM EDT Sexual Orientation Straight 09/16/2022 10 :28 AM EDT documented as of this encounter Progress Notes * Damaso Laguna - 08/02/2025 9:00 AM EDT ALBERT Marina placed successful outbound call to patient for pre-visit planning. Patient name and confirmed. Patient confirms appt date and time, and has transportation arrangements. Biggest concern for appointment at this time is no concerns. Patient advised to bring to appointment a photo id and insurance card. Appropriate screenings completed in anticipation of appointment. documented in this encounter Plan of Treatment Upcoming Encounters Date Type Department Care Team ([facility] st Contact Info) Description 08/08/2025 9:30 AM EDT Office Visit [facility] MED & PEDS [address] [place] [address] Anurag Wsahington MD [address] [place] [address] documented as of this encounter Visit Diagnoses Not on filedocumented in this encounter Additional Health Concerns Assessment Noted Time PHQ-9 Depression Total Score: 0 06/25/20 24 3:00 PM EDT documented as of this encounter Care Teams Oil Pit Attendant Relationship Specialty Start Date End Date Anurag Washington MD [address] [place] [address] PCP - General Internal Medicine 09/04/20 documented as of this encounter
--- OUTSIDE RECORDS SUMMARY | 2025-08-03 07:13 | XMS_ITS | Clinical Summary ---
Author Organization [address] [place] [address] Address [address] [place] [address] Phone Care Team Providers Care Hand Shoe Cutter Name Role Phone Physician, Pcp Unknown Primary [...] deficiency anemia 07/29/2018 Vitamin D deficiency 07/29/2018 Social History Tobacco Use Types Packs/Day Years [...] Last Done Comments Breast Cancer Screening 1975 Cervical Cancer Screening: P ap Smear 1994 Depression Screening 11/17/2024 Colorectal Cancer Screening: Colonoscopy 12/06/2024 Hepatitis C Screening 12/06/2024 Hypertension/CHF/CAD Annual BMP Blood Test 12/06/2024 Social Influencers of Health Screening 12/06/2024 COVID-19 Vaccine (3 - 2024-2 6 season) 2025 04/08/2021, 03/18/2021 Influenza Vaccine (#1) 2025 DTaP,Tdap,and Td Vaccines (2 - Td or Tdap) 10/18/2025 10/18/2015 Cholesterol Screening (Lipid Panel) 06/29/2029 06/29/2024 Hepatitis B Vaccines Completed 03/14/2023, 09/09/2022, 08/12/2022 Zoster Vaccines Completed 10/24/2023, 08/22/2023 HIV Screening Completed 06/29/2024 Hepatitis A Vaccines Aged Out 01/17/2025 No long er eligible based on patient's age to complete this topic Pneumococcal Vaccine: 50+ Years Completed 01/17/2025 HIB [...] topic Insurance MEDICAID - [place] Care Teams Hand Shoe Cutter Relationship Specialty Start Date End Date Physician, Pcp Unknown PCP - General 12/06/24
--- OUTSIDE RECORDS SUMMARY | 2025-08-03 07:13 | XMS_ITS | Encounter Summary ---
Author Organization [employer] Address [address] [place] [address] 7 [place] [address] Care Team Providers Care Kindergarten Teacher Name Role Phone Anurag Washington MD Primary Care Provider [phone] Reason for Visit * Reason Comments Med Refill Encounter Details Date Type Department Care Team ([facility] Contact Info) Description 11/27/2022 Refill [facility] MEDICINE [address] [place], [place] [phone] Anurag Washington MD [address] [place], [place] [phone] Essential hypertension (Primary Dx) Social History Tobacco [...] Description 08/08/2025 9:30 AM EDT Office Visit [facility] CHC MED & PEDS [address] [place], [place] [phone] Anurag Washington MD [address] [place], [place] [phone] documented as of this encounter Visit Diagnoses Diagnosis Essential hypertension- Primary Unspecified essential hypertension documented in this encounter Care Teams Kindergarten Teacher Relationship Specialty Start Date End Date Anurag Washington MD [address] [place] [address] PCP - General Internal Medicine 09/04/20 documented as of this encounter
--- OUTSIDE RECORDS SUMMARY | 2025-08-03 07:13 | XMS_ITS | Encounter Summary ---
Author Organization [employer] Address [address] [place] [address] 7 [place] [address] Care Team Providers Care Engineering Associate Name Role Phone Anurag Washington MD Primary Care Provider [phone] Encounter Details Date Type Department Care Team (Late Contact Info) Description 09/17/[address] [facility] MEDICINE [address] [place], [place] [phone] Tori Pastrana Social History Tobacco Use Types [...] Description 08/08/2025 9:30 AM EDT Office Visit [facility] CHC MED & PEDS [address] [place] [address] Anurag Washington MD [address] [place] [address] documented as of this encounter Procedures Procedure [...] on filedocumented in this encounter Care Teams Engineering Associate Relationship Specialty Start Date End Date Anurag Washington MD [address] [place] [address] PCP - General Internal Medicine 09/04/20 documented as of this encounter
--- OUTSIDE RECORDS SUMMARY | 2025-08-03 07:13 | XMS_ITS | Encounter Summary ---
Author Organization [employer] Address [address] [facility] 7t [place] [address] Care Team Providers Care Executive Associate Name Role Phone Anurag [place] MD Primary Care Provider [phone] Encounter Details Date Type Department Care Team ([facility] st Contact Info) Description 07/01/2024 Telephone [facility]S [address] [place], [place] [phone] Anurag [place] MD [address] [place], [place] [phone] Social History Tobacco Use Types Packs/Day Years [...] patient that her paperwork is ready for knot picker cloth in medical records. documented in this encounter Plan of Treatment Upcoming Encounters Date Type Department Care Team (Late st Contact Info) Description 08/08/2025 9:30 AM EDT Office Visit [facility] MED & PEDS [address] [place] [address] Anurag [place] MD [address] [place] [address] documented as of this encounter Visit Diagnoses Not on filedocumented in this encounter Additional Health Concerns Assessment Noted Time PHQ-9 Depression Total Score: 0 06/25/20 24 3:00 PM EDT documented as of this encounter Care Teams Executive Associate Relationship Specialty Start Date End Date Anurag [place] MD [address] [place] [address] PCP - General Internal Medicine 09/04/20 documented as of this encounter
--- OUTSIDE RECORDS SUMMARY | 2025-08-03 07:13 | XMS_ITS | Encounter Summary ---
Author Organization [employer] Address [address] [facility] 7 [place] [address] Care Team Providers Care Mold Burner Name Role Phone Anurag [place] MD Primary Care Provider [phone] Reason for Visit * Reason Onset Date Comments Lab Orders 08/01/2025 Encounter Details Date Type Department Care Team ([facility] st Contact Info) Description 08/01/2025 Telephone [facility] MEDICINE [address] [place] [address] Anurag [place] MD [address] [place] [address] Lab Orders Social History Tobacco Use Types Packs/Day Years [...] encounter Miscellaneous Notes * Telephone Encounter - Radha Camacho RN - 08/01/2025 2:54 PM EDT TC to patient. No answer. Detailed message left for patient to get labs completed prior to appointment on 08/08/25. * Telephone Encounter - Rhoda Sterling - 08/01/2025 10:44 AM EDT Tc from pt requesting a call back regarding office visit on 08/08. Pt would like to know if the active lab orders are the ones she needs to complete before her appointment. Contact pt at [phone] Need mobile web application developer documented in this encounter Plan of Treatment Upcoming Encounters Date Type Department Care Team (Late st Contact Info) Description 08/08/2025 9:30 AM EDT Office Visit [facility] MED & PEDS [address] [place] [address] Anurag [place] MD [address] [place] [address] documented as of this encounter Visit Diagnoses Not on filedocumented in this encounter Additional Health Concerns Assessment Noted Time PHQ-9 Depression Total Score: 0 06/25/20 24 3:00 PM EDT documented as of this encounter Care Teams Mold Burner Relationship Specialty Start Date End Date Anurag [place] MD [address] [place] [phone] PCP - General Internal Medicine 09/04/20 documented as of this encounter
--- OUTSIDE RECORDS SUMMARY | 2025-08-03 07:13 | XMS_ITS | Clinical Summary ---
Author Organization [employer] Address [address] [place] [address] 7t [place] [address] Care Team Providers Care Construction Helper Name Role Phone Anurag [place] MD Primary Care Provider [phone] Allergies Active Allergy Reactions Criticality Noted Date [...] per day. 90 tablet 2 5 Active azelastine (Astelin) 0.1 % nasal sprayIndications :Seasonal allergies Administer 1 spray into each nostril 2 times daily. Use in each nostril as directed 30 mL 12 5 03/18/20 26 Active Active Problems Problem Noted Date Diagnosed Date Cervical cancer screening 04/05/2025 Assessment & Plan (04/05/2025 9:40 AM EDT): 49 y.o. here for cervical cancer screening. Will continue monitoring following ASCCP guidelines. Healthcare maintenance 06/26/2024 Overview (06/26/2024): Last PE: [...] Encounters Date Type Department Care Team Description 08/02/2025 Patient Outreach [facility] MEDICINE [address] [place] [phone] Anurag [place] MD Pre-visit Planning (SDOH screening completed on 03/18/25 ) 08/01/2025 Telephone [facility] MEDICINE [address] [place] [address] Anurag [place] MD Lab Orders 06/09/2025 Telephone [facility]ALK[facility] [address] [place] [address] Anurag [place] MD Cologuard Outreach Unreturned Kit Reminder (Outreach call placed to Tannamaru Hinton. Tanna states she never recieved the cologuard kit. Tanna also got tested last month for colon cancer over at [facility]. Provider can cancel the cologuard order for Tannamaru Hinton.) 05/06/2025 Results Follow-Up [facility] MED & PEDS [address] [place], [place] [phone] Polly Benz MD Pap Smear, HPV High Risk with Reflex to Subtypes from Last 3 Months Immunizations Immunization Administration Dates Next Due Hep A, Adult [...] Tobacco: Never Tobacco Cessation:Counseling Given: Not Answered Alcohol Use Standard Drinks/Week Comments Never 0 [...] Sign Reading Time Taken Comments Blood Pressure 140/76 04/05/2025 9:01 AM EDT Pulse 72 04/05/2025 9:01 AM EDT Temperature 36.6 C (97.9 F) 04/05/2025 9:01 AM EDT Respiratory Rate 20 04/05/2025 9:01 AM EDT Oxygen Saturation 98% 04/05/2025 9:01 AM EDT Inhaled Oxygen Concentration - - Weight 108 kg (238 lb 12.8 oz) 04/05/2025 9:01 A M EDT Height 158 cm (5' 2.21 ) 04/05/2025 9:01 AM EDT Body Mass Index 43.39 04/05/2025 9:01 AM EDT Plan of Treatment Upcoming Encounters Date Type Department Care Team ([facility] st Contact Info) Description 08/08/2025 9:30 AM EDT Office Visit [facility] MED & PEDS [address] [place] [address] Anurag [place] MD [address] [place] [address] Health Maintenance Due Date Last Done Comments CT Colonography 1975 FIT DNA/Cologuard 1975 FIT 1975 Sigmoidoscopy 1975 Disability Screening 1975 Family Planning (PISQ) 1988 FOBT 08/27/2023 08/27/2022 Depression Screening 06/25/2025 06/25/2024, 06/25/20 COVID-19 Vaccine ( season) 2025 04/08/2021, 03/18/2021 Influenza Vaccine (#1) 2025 Hepatitis A Vaccines (2 of 2 - Risk 2-dose series) 07/20/2025 01/17/2025 DTaP/Tdap/Td Vaccines (2 - Td or Tdap) 10/18/2025 10/18/2015 Alcohol/Substance Use Screening 01/17/2026 01/17/2025 SDOH Screening 03/18/2026 03/18/2025 Tobacco Screening 04/05/2026 04/05/2025 Mammogram 03/10/2027 03/10/2025, 02/15, 02/26/2023, Additional history exists Pap Smear 04/05/2028 04/05/2025 Lipid Panel 06/29/2029 06/29/2024, 12/01/2020 Cervical Cancer Screening 04/05/2030 HPV/Cotest 04/05/2030 04/05/2025 Colonoscopy 04/27/2035 04/27/2025 Colorectal Cancer Screening 04/27/2035 RSV Patients and Patients Aged 60 years [...] Procedure Name Priority Date/Time Associated Diagnosis Comments HM COLONOSCOPY Routine 04/27/2025 HPV DNA, LOW/HIGH RISK Routine 9:46 AM EDT Cervical cancer screening PAP SMEAR Routine 04/05/2025 9:46 AM EDT Cervical cancer screening BI MAMMOGRAM SCREENING TOMOSYNTHESIS BILATERAL Routine 03/10/2025 8:10 AM EDT HEPATITIS C VIRAL RNA, QUANTITATIVE, REAL-TIME PCR Routine 06/29/2024 9:35 AM EDT Healthcare maintenance HIV 1/2 ANTIGEN/ANTIBODY, FOURTH GENERATION W/RFL Routine 06/29/2024 9:35 AM EDT Healthcare maintenance LIPID PANEL, STANDARD Routine 06/29/2024 9:35 AM EDT Healthcare maintenance HM IFOBT Routine 08/27/2022 11:52 AM EDT from Last 3 Months or Most Recently Relevant to Health Maintenance Results * Colonoscopy (04/27/2025) Colonoscopy Normal Normal Narrative Tori Pastrana - 04/27/2025 Recommended 10 years (see external hospital admission note on 04/27/2025) Diogo Provider HEALTH MAINTENANCE Final Result * HPV High Risk with Reflex to Subtypes (04/05/2025 9:46 AM EDT) HPV High Risk Negative Negative [facility] HPV Genotype 16 Negative Negative [facility] HPV Genotype 18 Negative Negative [facility] Comment:HPV testing performe d at [facility] (CLIA#[id number]), [address] [place] [address].Testing for HPV was performed using the Mil[employer]ESSICA 6800system. The presence of HPV in the female genital tract isassociated with a number of diseases, including cervicalcarcinoma. The HPV DNA high risk pool tests for HPV 31, 33,35, 39, 45, 51, 52, 56, 58, 59, 66 and 68. The testing forHPV 16 and 18 genotypes has also been performed. A positiveresult indicates detection of nucleic acid sequences fromone or more subtypes, whereas a negative result indicatessuch sequences were not detected. Pap Vial 04/05/2025 9:46 AM EDT 04/05/2025 2:27 PM EDT us Polly Benz MD LAB BLOOD ORDERABLES Final Re sult [facility] [address] [place] [phone] * Pap Smear (04/05/2025 9:46 AM EDT) Swab 04/05/2025 9:46 AM EDT 04/05/2025 2:27 PM EDT Javad [facility] - 04/08/2025 9:21 AM EDT ----- ------- Name: Tanna Hinton Age/Sex: 49/F : 1975 Unit#: [id number] Attend Dr: Re04/05/25 Status: PRE REF Location: HO.LNP Disch: ----- ------- SPEC : [id number] RECD: 04/05/25 STATUS: ALON NARAYAN NUM: [id number] SADE: 04/05/[address] [facility] [address]: Polly Benz MD ENTERED: 04/05/25 SP TYPE: Pap Smr OT : ORDERED: Pap Smear Interpretation Satisfactory for evaluation. Negative for intraepithelial lesion or malignancy. Mild inflammation. HPV High Risk: Negative HPV Genotyping 16: Negative HPV Genotyping 18: Negative Clinical Information LMP: 02/16/2024 Previous PAP test: Unknown date/findings Material Received ThinPrep-Cervical ----- ------- Signed (signature on file) MARA Vogt ([facility]) 04/08/25 0921 ----- ------- END OF REPORT us Polly Benz MD LAB CYTOLOGY ORDERABLES Final Result [facility] [address] [place] [phone] * BI Mammogram Screening Tomosynthesis Bilateral (03/10/2025 8:10 AM EDT) Anatomical Region Laterality Modality Breast Bilateral Mammography 03/10/2025 8:10 AM EDT Narrative 03/18/2025 12:24 PM EDT [facility] [address] [place] [address] [place] [address] Mammography Report Signed Patient: Tanna Hinton MR#: [id number] : 1975 Acct:[id number] Age/Sex: 49 / F ADM Date: 03/10/25 Loc: [facility] Attending Dr: Anurag [place] MD Ordering Physician: Anurag [place] MD Results: 1 Negative Date of Service: 03/10/25 Follow Up: 1 Year From Orig inal Mammogram Procedure(s): MM tomosynthesis screening BI Accession Number(s): [id number] cc: Anurag [place] MD EXAMINATION: MM SCREENING [...] Bernarda Han DO 03/18/2025 12:21 PM EDT RP Dictated By: Bernarda Han DO Signed By: <Electronically signed by Bernarda Han DO in OV> 03/18/25 1221 DD/ 0810 TD/TT: 03/10/25 0825 Strategies Analyst: Procedure Note Donotuseinterpreter, Image - 03/18/2025 [facility] [address] [place] [address] Mammography Report Signed Patient: James Hinton#: [id number] : 1975Acct:[id number] Age/Sex: 49 / FADM Date: 03/10/25 Loc: HO.MAMMO Attending Dr: Anurag [place] MD Ordering Physician: Anurag [place] MDResults: 1 Negative Date of Service: 03/10/25Follow Up: 1 Year From Orig inal Mammogram Procedure(s): MM tomosynthesis screening BI Accession Number(s): [id number] cc: Anurag [place] MD EXAMINATION: MM SCREENING [...] Bernarda Han DO 03/18/2025 12:21 PM EDT RP Dictated By: Bernarda Han DO Signed By: <Electronically signed by Bernarda Han DO in OV> 03/18/25 1221 DD/ 0810 TD/TT: 03/10/25 0825 Strategies Analyst: us Anurag [place] MD IMG BI PROCEDURES Final Res ult * Hepatitis C Viral RNA, Quantitative, Real-Time PCR (06/29/2024 9:35 AM EDT) Hepatitis C Viral Load <15 NOT DETECTED NOT DETECTED IU/mL [facility] HCV Log PCR <1.18 NOT DETECTED NOT DETECTED Log IU/mL [facility] Comment:For additional infor rohit, please refer tohttp://education.[employer]/faq/XJI32j5(This link is being provided for informational/educational purposes only.)THIS TEST WAS PERFORMED AT:[employer] [place] [phone] COLLINS MD Blood 06/29/2024 9:35 AM EDT 06/29/2024 2:41 PM EDT us Rose Marie Sharma NURSING TEACHER LAB BLOOD ORDERABLES Final Res ult Performing Organization Address [facility]/ZIP Co de Phone Number [facility] [address] [place] [phone] * HIV-1/2 Antigen and Antibodies, Fourth Generation, with Reflexes (06/29/2024 9:35 AM EDT) HIV AB/AG Nonreactive Nonreactive [facility] Comment:HIV-1 p24 Ag and/or HIV-1/HIV-2 Ab not detected.A test result that is nonreactive does not exclude thepossibility of exposure to or infection with HIV-1 and/orHIV-2. Nonreactive results in this assay for individualswith prior exposure to HIV-1 and/or HIV-2 may be due toantigen and antibody levels that are below the limit ofdetection of this assay.The [employer] HIV Ag/Ab Combo assay result andsupplemental assay results should be interpreted inconjunction with the patient's clinical presentation,history and other laboratory results. If the results areinconsistent with clinical evidence, additional testing issuggested to confirm the result. Blood Venous blood specimen / Unknown 06/29/2024 9:35 AM EDT 06/29/2024 2:36 PM EDT us Rose Marie Sharma [facility] LAB BLOOD ORDERABLES Final Res ult Performing Organization Address [facility] Co de Phone Number [facility] [address] [place] [phone] * Lipid Panel, Standard (06/29/2024 9:35 AM EDT) Triglycerides 53 <150 mg/dL [facility] Comment:Desirable Triglyceri de: less than 150 mg/dLBorderline High Triglyceride 150-199 mg/dLHigh Triglyceride: 200-499 mg/dLVery High Triglyceride: greater than or equal to 5OO mg/dL Cholesterol 161 <200 mg/dL [facility] Comment:Desirable Cholestero l: less than 200 mg/dLBorderline High Cholesterol: 200-239 mg/dLHigh Cholesterol: greater than 239 mg/dL LDL Cholesterol Calculated 99 <100 mg/dL [facility] Comment:Desirable LDL: less than 100 mg/dLNear Optimal/Above Optimal LDL: 110- 129 mg/dLBorderline High LDL: 130-159 mg/dLHigh LDL: 160-189 mg/dLVery High LDL: greater than or equal to 190 mg/dL HDL Cholesterol 52 >40 mg/dL [facility] Comment:Desirable HDL: grea ter than 40 mg/dL Note: This HDL assay may give artificially low results in patients with liver disease. Blood Venous blood specimen / Unknown 06/29/2024 9:35 AM EDT 06/29/2024 2:36 PM EDT Rose Marie Sharma NURSING TEACHER LAB BLOOD ORDERABLES Final Res ult [facility] [address] [place] [phone] * gFOBT (08/27/2022 11:52 AM EDT) Fecal Occult Blood 1 Negative Fecal Occult Blood 2 Negative Fecal Occult Blood 3 Negative 08/27/2022 11:5 2 AM EDT Historical Provider POINT OF CARE TEST ENTER/ EDIT ORDERABLES Final Result from Last 3 Months or Most Recently Relevant to Health Maintenance Insurance [facility] C3 Care Teams Construction Helper Relationship Specialty Start Date End Date Anurag [place] MD [address] [place] [phone] PCP - General Internal Medicine 09/04/20
--- OUTSIDE RECORDS SUMMARY | 2025-08-03 07:13 | XMS_ITS | Encounter Summary ---
Author Organization [facility] Address [address] [place] [address] 7 [place] [address] Care Team Providers Care Wrapping Machine Helper Name Role Phone Anurag [place] MD Primary Care Provider [phone] [phone] Encounter Details Date Type Department Care Team ([facility] Contact Info) Description 11/29/2022 Orders Only [facility] MED & PEDS [address] [place] [address] Keeley Bassett LPN Social History Tobacco Use [...] Upcoming Encounters Date Type Department Care Team ([facility] Contact Info) Description 08/08/2025 9:30 AM EDT Office Visit [facility] MED & PEDS [address] [place] [address] Anurag [place] MD [address] [place] [address] documented as of this encounter Visit Diagnoses Not on filedocumented in this encounter Care Teams Wrapping Machine Helper Relationship Specialty Start Date End Date Anurag [place] MD [address] [place] [address] [address] PCP - General Internal Medicine 09/04/20 documented as of this encounter
[2025-08-03 08:20] LABS: Alanine Aminotransferase 20 U/L (0-31); Albumin Level 4.3 g/dL (3.5-5.0); Alkaline Phosphatase 77 U/L (39-117); Anion Gap 9 (12-20); Aspartate Amino Transferase 29 U/L (5-31); Blood Urea Nitrogen 13 mg/dL (9-16); Calcium 9.0 mg/dL (8.4-10.2); Carbon Dioxide 28 mmol/L (22-29); Chloride 110 mmol/L (96-108); Cholesterol 169 mg/dL (<200); Estimated Glomerular Filt Rate > 60; HDL Cholesterol 52 mg/dL (>40); Potassium 3.8 mmol/L (3.3-5.1); Sodium 143 mmol/L (135-145); Total Protein 7.2 g/dL (6.5-8.0); Triglycerides 89 mg/dL (<150)
== END 2025-08-03 07:10 | disposition home or self-care (01) ==
LOC: HO.LAB 07:09
PROVIDERS: PCP Internal Medicine; Visit Provider Internal Medicine
DX: I10 Essential (primary) hypertension (principal); Z11.1 Encounter for screening for respiratory tuberculosis
CPT/HCPCS: 36415; 80053; 80061; 84443; 86481

== ENCOUNTER 2025-08-08 10:07 | Outpatient (REF) | payer OTHER, SELFPAY ==
--- OUTSIDE RECORDS SUMMARY | 2025-08-08 09:30 | XMS_ITS | Encounter Summary ---
Author Organization [employer] Address [address] [place] [address] [address] [place] [address] Care Team Providers Care Gear Shaper Name Role Phone Anurag Washington MD Primary Care Provider [phone] Reason for Referral * Consultation (Routine) - Pending Review Specialty Diagnoses / Procedures Referred By Roxanne salter Referred To Contact Physical Therapy Diagnoses Chronic pain of left knee Anurag Washington MD [address] [place] [address] Phone: tel: fax: Referral ID Status Reason Start Date Expiration Date Visits Requested Visits Authorized [id number] Pending Review Specialty Services Required 08/08/2025 08/08/2026 1 1 * Consultation (Routine) - Authorized Specialty Diagnoses / Procedures Referred By Roxanne salter Referred To Contact Nutrition Diagnoses Severe obesity (BMI >= 40) (CMS/[facility]) Anurag Washington MD [address] [place] [address] Phone: tel: fax: Referral ID Status Reason Start Date Expiration Date Visits Requested Visits Authorized [id number] Authorized Consult and Treat 08/08/2025 08/08/2026 1 1 Reason for Visit * Reason Comments Annual Exam Knee Pain Encounter Details Date Type Department Care Team ([facility] st Contact Info) Description 08/08/2025 9:30 AM EDT Office Visit [facility] [address] [place], [place] [phone] Anurag Washington MD [address] [facility] [place] [address] Annual physical exam (Primary Dx); Essential hypertension; Gastroesophageal reflux disease, unspecified whether esophagitis present; Other iron deficiency anemia; Vitamin D deficiency; Severe obesity (BMI >= 40) (CMS/HCC); Chronic pain of left knee; Encounter for immunization Social History Tobacco Use Types Packs/Day Years Used Date Smoking Tobacco: Never Passive Smoke Exposure: Current Smokeless Tobacco: Never Alcohol Use Standard Drinks/Week Comments Never 0 (1 standard drink = 0.6 oz pur e alcohol) Depression Answer Date Recorded Patient Health Questionnaire-9 Score 0 08/08/2025 Patient Health Questionnaire-9 Score 0 08/08/2025 Last PHQ-9: Questionnaire Data Not on file 0 08/08/2025 Housing Stability Answer Date Recorded What is [...] Date Recorded Patient Health Questionnaire-2 Score 0 08/08/2025 Internet Access Answer Date Recorded Internet Access Q1 Yes 07/19/2024 Internet Access Q2 Not on file 07/19/2024 Comments No Sex and Gender Information Value Date Recorded Sex Assigned at Female 09/16/2022 10:28 AM EDT Legal Sex Female 10:28 AM EDT Gender Identity Female 09/16/2022 10:28 AM EDT Sexual Orientation Straight 09/16/2022 10 :28 AM EDT documented as of this encounter Last Filed Vital Signs Vital Sign Reading Time Taken Comments Blood Pressure 143/76 08/08/2025 9:30 AM EDT Pulse 78 08/08/2025 9:30 AM EDT Temperature 36.8 C (98.3 F) 08/08/2025 9:30 AM EDT Respiratory Rate 20 08/08/2025 9:30 AM EDT Oxygen Saturation 98% 08/08/2025 9:30 AM EDT Inhaled Oxygen Concentration - - Weight 111 kg (244 lb) 08/08/2025 9:30 AM EDT Height 158 cm (5' 2.21 ) 08/08/2025 9:30 AM EDT Body Mass Index 44.33 08/08/2025 9:30 AM EDT documented in this encounter Functional Status * Over the past 2 weeks, how often have you been bothered by any of the following problems? Question Answer Date of Assessment Author Patient Health Questionnaire-2 Score 0 07/19 10:21 AM EDT Rain Mixon MA * Little interest or pleasure in doing things Answer Date of Assessment Author Not at all 08/08/2025 10:21 AM EDT Sherrill Mixon MA * Feeling down, depressed, or hopeless Answer Date of Assessment Author Not at all 08/08/2025 10:21 AM EDT Sherrill Mixon MA * Trouble falling or staying asleep, or sleeping too much Answer Date of Assessment Author Not at all 08/08/2025 10:21 AM EDT Sherrill Mixon MA * Feeling tired or having little energy Answer Date of Assessment Author Not at all 08/08/2025 10:21 AM EDT Sherrill Mixon MA * Poor appetite or overeating Answer Date of Assessment Author Not at all 08/08/2025 10:21 AM EDT Sherrill Mixon MA * Feeling bad about yourself - or that you are a failure or have let yourself or your family down Answer Date of Assessment Author Not at all 08/08/2025 10:21 AM EDT Shrerill Mixon MA * Trouble concentrating on things, such as reading the newspaper or watching television Answer Date of Assessment Author Not at all 08/08/2025 10:21 AM Sherrill Crowley MA * Moving or speaking so slowly that other people could have noticed? Or the opposite - being so fidgety or restless that you have been moving around a lot more than usual. Answer Date of Assessment Author Not at all 08/08/2025 10:21 AM Sherrill Crowley MA * Thoughts that you would be better off or hurting yourself in some way Answer Date of Assessment Author Not at all 08/08/2025 10:21 AM EDSherrill Soriano MA * Patient Health Questionnaire-9 Score Answer Date of Assessment Author 0 08/08/2025 10:21 AM Sherrill Crowley MA documented as of this encounter Progress Notes * Anurag Washington MD - 08/08/2025 9:30 AM EDT SUBJECTIVE Tanna Hinton is a 49 y.o. female who presents for Annual Exam and Knee Pain. Knee Pain The incident occurred more than 1 week ago. Incident location: No fall/trauma. There was no injury mechanism. The pain is at a severity of 3/10. The pain has been Fluctuating since onset. Pertinent negatives include no inability to bear weight, loss of motion, muscle weakness or numbness. She reports no foreign bodies present. The symptoms are aggravated by movement and weight bearing. She has tried nothing for the symptoms. Several months h/o left knee pain of insidious onset. No treatment tried. Exacerbated by weight bearing. No fever or other constitutional symptoms reported. Problem List[1] Allergies[2] Medications Ordered Prior to Encounter[3] Review of Systems Constitutional: Negative for appetite change, chills, diaphoresis and fatigue. Respiratory: Negative for cough, choking and shortness of breath. Cardiovascular: Negative for palpitations and leg swelling. Gastrointestinal: Negative for anal bleeding and blood in stool. Musculoskeletal: Left knee pain Neurological: Negative for numbness. OBJECTIVE Vitals: 08/08/25 0930 BP: (!) 143/76 BP Location: Left arm Patient Position: Sitting BP Cuff Size: Adult long Pulse: 78 Resp: 20 Temp: 98.3 ??F (36.8 ??C) TempSrc: Oral SpO2: 98% Weight: 244 lb (111 kg) Height: 5' 2.21 (1.58 m) Physical Exam Constitutional: General: She is not in acute distress. Appearance: Normal appearance. She is obese. She is not ill-appearing, toxic- appearing or diaphoretic. Cardiovascular: Rate and Rhythm: Normal rate. Heart sounds: No murmur heard. No friction rub. Pulmonary: Effort: Pulmonary effort is normal. Breath sounds: Normal breath sounds. Abdominal: General: Abdomen is flat. Palpations: Abdomen is soft. Musculoskeletal: Cervical back: Normal range of motion. Skin: General: Skin is warm. Neurological: General: No focal deficit present. Mental Status: She is alert. Assessment/Plan Assessment/Plan Diagnoses and all orders for this visit: Annual physical exam Comments: Normal cardiopulmonary exam Pt is to maintain a healthy and balanced diet. Essential hypertension Comments: BP elevated PT did not take her BP at home this morning DASH diet. Gastroesophageal reflux disease, unspecified whether esophagitis present Comments: stable Continue w/ avoidance of any dietary irritants Head of bed elevation Avoid eating 3 hours prior to bedtime. Other iron deficiency anemia Comments: Repeat CBC Pt will be contacted after. Orders: - CBC auto differential; Future Vitamin D deficiency Comments: Vit D level Vit D supplementation after reviewing the results. Orders: - Vitamin D, 25-Hydroxy, Total, Immunoassay; Future Severe obesity (BMI >= 40) (CMS/[facility]) - Referral to Nutrition Therapy; Future Dietary Recommendations: Fruits, vegetables, whole grains, protein foods, and fat-free or low-fat dairy products are healthychoices. Eat different types of protein foods in your diet. This can include seafood, lean meats, poultry, beans, peas, lentils, nuts, seeds, soy products, and eggs. Limit foods and beverages higher in added sugars, saturated fat, and sodium. Exercise Recommendations: At least 150 minutes of moderate-intensity physical activity per week, or an equivalent combinationof moderate- and vigorous-intensity activity Chronic pain of left knee - XR Knee 3 Views Left; Future - Referral to Physical Therapy; Future - Diclofenac Sodium 1 % gel; To apply to the affected area 4 times a day. [1] Patient Active Problem List Diagnosis Benign paroxysmal positional vertigo Essential hypertension Gastroesophageal reflux disease Iron deficiency anemia Seasonal allergies Vitamin D deficiency Healthcare maintenance Cervical cancer screening [2] Allergies Allergen Reactions Food Certain types of cheeses, mushrooms, nuts (pt unable to identify further) Lisinopril Cough Percocet [Oxycodone-Acetaminophen] [3] Current Outpatient Medications on File Prior to Visit Medication Sig Dispense Refill azelastine (Astelin) 0.1 % nasal spray Administer 1 spray into each nostril 2 times daily. Use in each nostril as directed 30 mL 12 cholecalciferol VITAMIN D (Vitamin D-3) 50 MCG (2000 UT) capsule TAKE ONE CAPSULE EVERY MORNING 90 capsule 3 Diclofenac Sodium 1 % gel To apply to the affected area 3 times a day 100 g 0 EPINEPHrine (Epipen) 0.3 MG/0.3ML injection syringe Inject 0.3 mL (0.3 mg) as directed if needed for anaphylaxis (severe allergic reaction) for up to 1 dose. Call 911 after use, and proceed to hospital for further evaluation. 2 each 3 fluticasone (Flonase) 50 MCG/ACT nasal spray Administer 2 sprays into each nostril 2 times daily. Shake gently. Before first use, prime pump. After use, clean tip and replace cap. 16 g 11 hydroCHLOROthiazide (HYDRODiuril) 25 MG tablet Take 1 tablet (25 mg) by mouth Once per day. 90 tablet 2 losartan (Cozaar) 100 MG tablet Take 1 tablet (100 mg) by mouth in the morning. 90 tablet 3 triamcinolone (Kenalog) 0.1 % cream Apply thin layer by topical route twice daily for up to one week if needed (Use: itching/irritation back of neck) 30 g 1 No current facility-administered medications on file prior to visit. documented in this encounter Miscellaneous Notes * Patient Education Note - Anurag Washington MD - 08/08/2025 2:04 PM EDT Images from the original note were not included. Educaci?n del paciente Tabla de contenidos ERGE en adultos: qu?? debe gomez (GERD in Adults: What to Know) Para madeline videos y toda rae educaci?n en l?krishna, visite [email or web address]://pe.elsevier.com/[email or web address] o escanee olive c?digo QR con rae tel?fono inteligente. El acceso a olive contenido expirar?? en un a?o. ERGE en adultos: qu?? debe saber GERD in Adults: What to Know El reflujo gastroesof?gico (RGE) es cuando el ?cido del est?everette sube al es?fago. El es?fago es la parte del cuerpo que transporta los alimentos desde la boca al est?everette. Normalmente, los alimentos bajan y permanecen en el est?everette para ser digeridos. Elma con RGE, los alimentos y el ?cido estomacal pueden volver a subir. Usted puede tener jake enfermedad llamada enfermedad de reflujo gastroesof?gico (ERGE) si el reflujo: Sucede a menudo. Le causa s?ntomas muy intensos. Hace que el es?fago est?? sensible e hinchado. Con el tiempo, la ERGE puede ocasionar sarah?os agujeros, llamado ?lceras, en el revestimiento del es?fago. ?Cu?les son las causas? La ERGE se debe a un problema en el m?sculo que se encuentra entre el es?fago y el est?everette. Olive m?sculo se conoce rojas esf?nter esof?gico inferior (EEI). Cuando est?? d?maged o no es normal, no se amarjit rojas deber?a. Frankewing significa que los alimentos y el ?cido estomacal pueden subir al es?fago. Olive m?sculo puede estar d?maged si usted: Fuma o consume productos que contienen tabaco. Est?? embarazada. Tiene un tipo de hernia que se llama hernia de hiato. Consume ciertos alimentos y bebidas. Frankewing incluye lo siguiente: ? Alcohol. ? Caf?. ? Chocolate. ? Cebollas. ? Menta. ?Qu?? incrementa el riesgo? Tener sobrepeso. Tener jake enfermedad que afecta el tejido conjuntivo. [place] antiinflamatorios no esteroideos (BENEDICT) rojas el ibuprofeno. ?Cu?les son los signos o s?ntomas? Acidez estomacal. Dificultad para tragar. Dolor al tragar. Sensaci?n de tener un bulto en la garganta. Un sabor amargo en la boca. Mal aliento. Est?everette inflamado o con malestar. Eructos. Dolor en el pecho. Otras afecciones tambi?n pueden provocar dolor en el pecho. Es importante que consulte al m?dico si siente dolor en el pecho. Sibilancias. Es la emisi?n de sonidos de silbidos agudos al respirar, m?s a menudo al exhalar. Jake tos a maira plazo o tos nocturna. ?C?mo se diagnostica? La ERGE se puede diagnosticar en funci?n de los antecedentes m?dicos y de un examen f?sico. Tambi?npueden hacerle pruebas. Pueden incluir: Jake endoscopia. Esta prueba se hace para observar el est?everette y el es?fago con jake c?francesco muy sarah?a. Jake prueba de degluci?n de bario. Esta prueba se hace para observar la forma y el luciano?o del es?fago y determinar si est?? funcionando fortino. Estudios del es?fago para revisar lo siguiente: ? Niveles de ?cido. ? Presi?n. ?C?mo se trata? El tratamiento puede depender de la intensidad de los s?ntomas. Puede incluir lo siguiente: Cambios en rae dieta y gabriella cotidiana. Medicamentos. Jake cirug?a. Siga estas instrucciones en rae casa: Comida y bebida Siga un plan de alimentaci?n rojas se lo haya indicado el m?dico. Es posible que deba evitar ciertos alimentos y bebidas. Pueden incluir: ? Caf?? y t?? carmela, con o sin cafe?na. ? Alcohol. ? Bebidas energ?kendra y deportivas. ? Bebidas gaseosas o refrescos. ? Chocolate y cacao. ? Menta y esencia de menta. ? Davidson y cebolla. ? R?billie picante. ? Alimentos ?cidos y condimentados. Frankewing incluye lo siguiente: ? Pimientos. ? Chile en polvo y sesay en polvo. ? Vinagre. ? Salsas picantes y salsa barbacoa. ? C?tricos y jugos. Frankewing incluye lo siguiente: ? Naranjas. ? Alicia. ? Elisabeth. ? Alimentos que contengan tomate. Frankewing incluye lo siguiente: ? Salsa wilder y pizza con salsa wilder. ? Chile. ? Salsa. ? Alimentos fritos y grasos. Frankewing incluye lo siguiente: ? Rosquillas. ? Nayana fritas. ? Nayana fritas en bolsa. ? Aderezos con alto contenido de grasa. ? Hernando con alto contenido de grasa. Frankewing incluye lo siguiente: ? Perros calientes y salchichas. ? Chuletas. ? Jam?n y tocino. ? Productos l?cteos ricos en grasas. Frankewing incluye lo siguiente: ? Leche entera. ? Mantequilla. ? Queso crema. Consuma sarah?as cantidades de comida con m?s frecuencia. No consuma grandes cantidades de comida. Evite beber mucho l?quido con las comidas. Intente no comer mirian las 2 o 3?horas previas a acostarse. Trate de no acostarse inmediatamente despu?s de comer. No gama ejercicios tita despu?s de comer. Estilo de gabriella Si tiene sobrepeso, baje jake cantidad de peso que sea saludable para usted. Consulte a rae m?dico para bajar de peso de manera alford. No fume, vapee ni consuma nicotina o tabaco. Use ropa holgada. No use nada apretado alrededor de la cintura. A la hora de dormir, pruebe lo siguiente: ? Levante la cabecera de la cama aproximadamente 6?pulgadas (15?cm). Para hacerlo puede usar jake cu?a. ? Acu?stese del lado cait. Intente reducir el nivel de estr?s. Si necesita ayuda para lograrlo, consulte a rae m?dico. Instrucciones generales [place] vani medicamentos ?nicamente seg?n las indicaciones. No tome aspirina ni ibuprofeno a menos que se lo indiquen. Controle si hay alg?n cambio en vani s?ntomas. No se incline hacia adelante si eso empeora vani s?ntomas. Comun?quese con un m?dico si: Aparecen nuevos s?ntomas. Tiene dificultad para hacer lo siguiente: ? Beber. ? Tragar. ? [place]. Siente dolor al tragar. Tiene sibilancias. Tiene tos que no desaparece. Tiene ronquera. Los s?ntomas no mejoran con el tratamiento. Solicite ayuda de inmediato si: Siente un dolor repentino en estas partes del cuerpo: ? El brazo. ? El meche. ? La monique?bula. ? Los dientes. ? La espalda. De repente se siente transpirado, mareado o aturdido. Se desmaya. Siente falta de aire o dolor en el pecho. Vomita, y el v?astrid: ? Es edouard, amarillo o carmela. ? Parece tener franco o borra de caf?. Defeca y las heces son dowling, sanguinolentas o negras. Estos s?ntomas pueden indicar jake emergencia. Llame al 911 de inmediato. No espere a madeline si los s?ntomas desaparecen. No conduzca por vani propios medios hasta el hospital. Esta informaci?n no tiene rojas fin reemplazar el consejo del m?dico. Aseg?rese de hacerle al m?dicocualquier pregunta que tenga. Document Released: 2006-08-13 Document Updated: 2024-05-17 Document Reviewed: 2024-05-17 Ship It Bag Check Patient Education ? 2024 [employer]. * Addendum Note - Rain Mixon MA - 08/08/2025 9:30 AM EDTAddended by: RAIN MIXON on: 08/08/2025 10:21 AM Modules accepted: Orders * Addendum Note - Rain Mixon MA - 08/08/2025 9:30 AM EDTAddended by: RAIN MIXON on: 08/08/2025 10:23 AM Modules accepted: Orders documented in this encounter Plan of Treatment Upcoming Encounters Date Type Department Care Team (Late st Contact Info) Description 09/27/2025 4:00 PM EST Office Visit [facility] [address] [place] [address] Anurag Washington MD [address] [place] [address] Scheduled Orders Name Type Priority Associated Diagnoses Orde r Schedule CBC auto differential Lab Routine Other iron deficiency anemia Expected: 08/08/2025 (Approximate), Expires: 08/08/2026 Vitamin D, 25-Hydroxy, Total, Immunoassay Lab Routine Vitamin D deficiency Expected: 08/08/2025 (Approximate), Expires: 08/08/2026 XR Knee 3 Views Left Imaging Routine Chronic pain of left knee Expected: 08/08/2025, Expires: 08/08/2026 Scheduled Referrals Name Type Priority Associated Diagnoses Orde r Schedule Referral to Nutrition Therapy Outpatient Referral Routine Severe obesity (BMI >= 40) (CMS/[facility]) Expected: 08/08/2025 (Approximate), Expires: 08/08/2026 Referral to Physical Therapy Outpatient Referral Routine Chronic pain of left knee Expected: 08/08/2025 (Approximate), Expires: 08/08/2026 documented as of this encounter Visit Diagnoses Diagnosis Annual physical exam- Primary Routine general medical examination at a health care facility Essential hypertension Unspecified essential hypertension Gastroesophageal reflux disease, unspecified whether esophagitis present Other iron deficiency anemia Vitamin D deficiency Severe obesity (BMI >= 40) (CMS/[facility]) Chronic pain of left knee Encounter for immunization documented in this encounter Additional Health Concerns Assessment Noted Time PHQ-9 Depression Total Score: 0 08/08/20 25 10:21 AM EDT documented as of this encounter Care Teams Gear Shaper Relationship Specialty Start Date End Date Anurag Washington MD [address] [place], [place] [address] [address] PCP - General Internal Medicine 09/04/20 documented as of this encounter
--- OUTSIDE RECORDS SUMMARY | 2025-08-08 12:27 | XMS_ITS | Encounter Summary ---
Author Organization [employer] [facility] Address [address] [place] [address] 7 [place] [address] Care Team Providers Care Air Defense Control Officer Name Role Phone Anurag Washington MD Primary Care Provider [phone] Encounter Details Date Type Department Care Team ([facility] Contact Info) Description 08/12/2023 Orders Only [facility] [address] [place] [address] Anurag Washington MD [address] [place] [address] Cysts of both ovaries (Primary Dx); Intramural [...] Upcoming Encounters Date Type Department Care Team ([facility] Contact Info) Description 09/27/2025 4:00 PM EST Office Visit [facility] [address] [place] [address] Anurag Washington MD [address] [place] [address] documented as of this encounter Visit Diagnoses Diagnosis Cysts of both ovaries- Primary Other and unspecified ovarian cyst Intramural uterine fibroid documented in this encounter Care Teams Air Defense Control Officer Relationship Specialty Start Date End Date Anurag Washington MD [address] [place] [address] PCP - General Internal Medicine 09/04/20 documented as of this encounter
--- OUTSIDE RECORDS SUMMARY | 2025-08-08 12:27 | XMS_ITS | Encounter Summary ---
Author Organization [employer] Address [address] [place] [address] 7 [place] [address] Care Team Providers Care Mechanical Manufacturing Technician Name Role Phone Anurag Washington MD Primary Care Provider [phone] Encounter Details Date Type Department Care Team (Late Contact Info) Description 09/17/2023 Abstract [facility] [address] [place], [place] [phone] Tori Pastrana Social History Tobacco Use Types [...] Department Care Team (Late Contact Info) Description 09/27/2025 4:00 PM EST Office Visit [facility] [address] [place] [address] Anurag Washington MD [address] [place] [address] documented as of this encounter Procedures Procedure [...] on filedocumented in this encounter Care Teams Mechanical Manufacturing Technician Relationship Specialty Start Date End Date Anurag Washington MD [address] [place] [address] PCP - General Internal Medicine 09/04/20 documented as of this encounter
--- OUTSIDE RECORDS SUMMARY | 2025-08-08 12:27 | XMS_ITS | Encounter Summary ---
Author Organization [employer] Address [address] [facility] [address] [place] [address] Care Team Providers Care Print Line Inspector Name Role Phone Anurag Washington MD Primary Care Provider [phone] Encounter Details Date Type Department Care Team (Latest Contact Info) Description 08/08/2025 Travel Social History Tobacco Use Types Packs/Day Years [...] AM EDT documented as of this encounter Functional Status * Over the past 2 weeks, how often have you been bothered by any of the following problems? Question Answer Date of Assessment Author Patient Health Questionnaire-2 Score 0 07/19 10:21 AM EDT Rain Smith MA * Little interest or pleasure in doing things Answer Date of Assessment Author Not at all 08/08/2025 10:21 AM Sherrill Crowley MA * Feeling down, depressed, or hopeless Answer Date of Assessment Author Not at all 08/08/2025 10:21 AM Sherrill Crowley MA * Trouble falling or staying asleep, or sleeping too much Answer Date of Assessment Author Not at all 08/08/2025 10:21 AM Sherrill Crowley MA * Feeling tired or having little energy Answer Date of Assessment Author Not at all 08/08/2025 10:21 AM Sherrill Crowley MA * Poor appetite or overeating Answer Date of Assessment Author Not at all 08/08/2025 10:21 AM Sherrill Crowley MA * Feeling bad about yourself - or that you are a failure or have let yourself or your family down Answer Date of Assessment Author Not at all 08/08/2025 10:21 AM Sherrill Crowley MA * Trouble concentrating on things, such [...] at all 08/08/2025 10:21 AM EDT Sherrill Smith MA * Thoughts that you would be better off or hurting yourself in some way Answer Date of Assessment Author Not at all 08/08/2025 10:21 AM EDT Sherrill Smith MA * Patient Health Questionnaire-9 Score Answer Date of Assessment Author 0 08/08/2025 10:21 AM EDT Sherrill Smith MA documented as of this encounter Plan of Treatment Upcoming Encounters Date Type Department Care Team (Late st Contact Info) Description 09/27/2025 4:00 PM EST Office Visit [facility] P[facility] [address] [place] [address] Anurag Washington MD [address] [place] [address] documented as of this encounter Visit Diagnoses Not on filedocumented in this encounter Additional Health Concerns Assessment Noted Time PHQ-9 Depression Total Score: 0 08/08/20 25 10:21 AM EDT documented as of this encounter Care Teams Print Line Inspector Relationship Specialty Start Date End Date Anurag Washington MD [address] [place] [address] PCP - General Internal Medicine 09/04/20 documented as of this encounter
--- OUTSIDE RECORDS SUMMARY | 2025-08-08 12:27 | XMS_ITS | Encounter Summary ---
Author Organization [employer] Address [address] [place] [address] 7 [place] [address] Care Team Providers Care Clay Puddler Name Role Phone Anurag Washington MD Primary Care Provider +1 [phone] Reason for Visit * Reason Comments Med Refill Encounter Details Date Type Department Care Team ([facility] Contact Info) Description 11/27/2022 Refill [facility] [address] [place], [place] [phone] Anurag Washington MD [address] [place], [place] [phone] Essential hypertension (Primary Dx) Social History Tobacco [...] Description 09/27/2025 4:00 PM EST Office Visit [facility] [address] [place], [place] [phone] Anurag Washington MD [address] [place], [place] [phone] documented as of this encounter Visit Diagnoses Diagnosis Essential hypertension- Primary Unspecified essential hypertension documented in this encounter Care Teams Clay Puddler Relationship Specialty Start Date End Date Anurag Washington MD [address] [place] [address] PCP - General Internal Medicine 09/04/20 documented as of this encounter
--- OUTSIDE RECORDS SUMMARY | 2025-08-08 12:27 | XMS_ITS | Encounter Summary ---
Author Organization [employer] Address [address] [place] [address] 7 [place] [address] Care Team Providers Care Wine Pasteurizer Name Role Phone Anurag Washington MD Primary Care Provider +1 [phone] Reason for Visit * Reason Onset Date Comments Chart prep 08/05/2025 Encounter Details Date Type [facility] Description 08/05/2025 Telephone [facility] PEDS [address] [place], [place] [phone] Anurag Washington MD [address] [place] [address] Chart prep Social History Tobacco Use Types Packs/Day Years [...] encounter Miscellaneous Notes * Telephone Encounter - Libra Wise [place] - 08/05/2025 2:28 PM EDT Chart Prep Labs: not done Images: done Referrals: complete Vaccines due: due Screenings: not applicable Overdue care gaps: PHQ-9 and Disability screen documented in this encounter Plan of Treatment Upcoming Encounters Date Type Department Care Team ([facility] st Contact Info) Description 09/27/2025 4:00 PM EST Office Visit [facility] MED & PEDS [address] [place] [address] Anurag Washington MD [address] [place] [address] documented as of this encounter Visit Diagnoses Not on filedocumented in this encounter Additional Health Concerns Assessment Noted Time PHQ-9 Depression Total Score: 0 06/25/20 24 3:00 PM EDT documented as of this encounter Care Teams Wine Pasteurizer Relationship Specialty Start Date End Date Anurag Washington MD [address] [place] [address] PCP - General Internal Medicine 09/04/20 documented as of this encounter
--- OUTSIDE RECORDS SUMMARY | 2025-08-08 12:27 | XMS_ITS | Encounter Summary ---
Author Organization [employer] Address [address] [facility] 7t [place] [address] Care Team Providers Care Weight Yardage Checker Name Role Phone Anurag Washington MD Primary Care Provider [phone] [phone] Encounter Details Date Type Department Care Team ([facility] st Contact Info) Description 07/01/2024 Telephone [facility] MED & PEDS [address] [place], [place] [phone] Anurag Washington MD [address] [place], [place] [phone] Social History Tobacco Use Types Packs/Day Years [...] Miscellaneous Notes * Telephone Encounter - Maritza Suman - 07/01/2024 12:26 PM EDT Informed patient that 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 documented in this encounter Plan of Treatment Upcoming Encounters Date Type Department Care Team (Late st Contact Info) Description 09/27/2025 4:00 PM EST Office Visit [facility] PED[facility] [address] [place] [address] Anurag Washington MD [address] [place] [address] documented as of this encounter Visit Diagnoses Not on filedocumented in this encounter Additional Health Concerns Assessment Noted Time PHQ-9 Depression Total Score: 0 06/25/20 24 3:00 PM EDT documented as of this encounter Care Teams Weight Yardage Checker Relationship Specialty Start Date End Date Anurag Washington MD [address] [place] [address] PCP - General Internal Medicine 09/04/20 documented as of this encounter
--- OUTSIDE RECORDS SUMMARY | 2025-08-08 12:27 | XMS_ITS | Encounter Summary ---
Author Organization [employer] [facility] Address [address] [place] [address] [place] [address] Care Team Providers Care Non Profit Director Name Role Phone Anurag Washington MD Primary Care Provider [phone]- [phone] Encounter Details Date Type Department Care Team ([facility] Contact Info) Description 03/11/2024 Orders Only [facility] MED & PEDS 505 [place] [address] Anurag Washington MD 505 [place] [address] Social History Tobacco Use Types Packs/Day Years [...] Upcoming Encounters Date Type Department Care Team ([facility] Contact Info) Description 09/27/2025 4:00 PM EST Office Visit [facility] PED[facility] [address] [place] [address] Anurag Washington MD [address] [place] [address] documented as of this encounter Visit Diagnoses Not on filedocumented in this encounter Care Teams Non Profit Director Relationship Specialty Start Date End Date Anurag Washington MD [address] [place] [address] PCP - General Internal Medicine 09/04/20 documented as of this encounter
--- OUTSIDE RECORDS SUMMARY | 2025-08-08 12:27 | XMS_ITS | Clinical Summary ---
Author Organization [employer] Address [address] [place] [address] 7t [place] [address] Care Team Providers Care Latin Teacher Name Role Phone Anurag Washington MD Primary Care Provider +1- [phone] Allergies Active Allergy Reactions Criticality Noted Date [...] 30 mL 12 5 03/18/20 26 Active Diclofenac Sodium 1 % gelIndications:C hronic pain of left knee To apply to the affected area 4 times a day. 100 g 1 5 Active Active Problems Problem Noted Date Diagnosed [...] Encounters Date Type Department Care Team Description 08/08/2025 9:30 AM EDT Office Visit [facility] MED & PEDS [address] [place] [address] Anurag Washington MD Annual physical exam (Primary Dx); Essential hypertension; Gastroesophageal reflux disease, unspecified whether esophagitis present; Other iron deficiency anemia; Vitamin D deficiency; Severe obesity (BMI >= 40) (CMS/HCC); Chronic pain of left knee; Encounter for immunization 08/08/2025 Travel 08/05/2025 Telephone [facility] MED & PEDS [address] [place] [address] Anurag Washington MD Chart prep 08/02/2025 Patient Outreach [facility] [address] [place] [address] Anurag Washington MD Pre-visit Planning (SDOH screening completed on 03/18/25 ) 08/01/2025 Telephone [facility] [address] [place] [address] Anurag Washington MD Lab Orders 06/09/2025 Telephone [facility] [address] [place] [address] [place] [address] Anurag Washington MD Cologuard Outreach Unreturned Kit Reminder (Outreach call placed to Tanna Hinton. Tanna states she never recieved the cologuard kit. Tanna also got tested last month for colon cancer over at [facility]. Provider can cancel the cologuard order for Tanna Hinton.) from Last 3 Months Immunizations Immunization Administration Dates Next Due Hep A, Adult 01/17/2025 Hep B, adult 03/14/2023,09/09/2022,08/12/2022 Pneumococcal Conjugate PCV 20 01/17/2025 Tdap 08/08/2025,10/18/2015 Zoster, Recombinant 10/24/2023,08/22/2023 Family History Medical History [...] Mass Index 44.33 08/08/2025 9:30 AM EDT Plan of Treatment Upcoming Encounters Date Type Department Care Team (Late st Contact Info) Description 09/27/2025 4:00 PM EST Office Visit [facility] MED & PEDS [address] [place] [address] Anurag Washington MD [address] [place] [address] Health Maintenance Due Date Last Done Comments CT Colonography 1975 FIT DNA/Cologuard 1975 FIT 1975 Sigmoidoscopy 1975 Family Planning (PISQ) 1988 FOBT 08/27/2023 08/27/2022 Hepatitis A Vaccines (2 of 2 - Risk 2-dose series) 07/20/2025 01/17/2025 Alcohol/Substance Use Screening 01/17/2026 01/17/2025 SDOH Screening 03/18/2026 03/18/2025 Influenza Vaccine (#1) 2026 Postp oned from 07/18/2025 (Patient Refused) COVID-19 Vaccine (3 - 2024- season) 2026 04/08/2021, 03/18/2021 Postponed from 07/18/2025 (Patient Refused) Depression Screening 08/08/2026 08/08/2025, 08/08/20 Disability Screening 08/08/2026 08/08/2025 Tobacco Screening 08/08/2026 08/08/2025 Mammogram 03/10/2027 03/10/2025, 02/15, 02/26/2023, Additional history exists Pap Smear 04/05/2028 04/05/2025 Cervical Cancer Screening 04/05/2030 HPV/Cotest 04/05/2030 04/05/2025 Lipid Panel 08/03/2030 08/03/2025, 06/17, 12/01/2020 Colonoscopy 04/27/2035 04/27/2025 Colorectal Cancer Screening 04/27/2035 DTaP/Tdap/Td Vaccines (3 - Td or Tdap) 08/08/2035 08/08/2025, 10/18/2015 RSV Patients and Patients Aged 60 years [...] Procedure Name Priority Date/Time Associated Diagnosis Comments TSH W/REFLEX TO FT4 Routine 08/03/2025 1 2:00 AM EDT Essential hypertension LIPID PANEL, STANDARD Routine 08/03/2025 12:00 AM EDT Essential hypertension COMPREHENSIVE METABOLIC PANEL Routine 08/03/2025 12:00 AM EDT Essential hypertension HM COLONOSCOPY Routine 04/27/2025 HPV DNA, LOW/HIGH RISK Routine 04/05/2025 9:46 AM EDT Cervical cancer screening PAP [...] Recently Relevant to Health Maintenance Results * TSH W/Reflex to FT4 (08/03/2025 12:00 AM EDT) TSH reflex Free T4 0.88 0.32 - 4.0 uIU/mL [facility] Blood Venous blood specimen / Unknown 08/03/2025 08/03/2025 us Anurag Washington MD LAB BLOOD ORDERABLES Final Result [facility] [address] [place] [address] [phone] * (ABNORMAL) Lipid Panel, Standard (08/03/2025 12:00 AM EDT) Triglycerides 89 <150 mg/dL [facility] Comment:Desirable Triglyceri de: less than 150 mg/dLBorderline High Triglyceride 150-199 mg/dLHigh Triglyceride: 200-499 mg/dLVery High Triglyceride: greater than or equal to 5OO mg/dL Cholesterol 169 <200 mg/dL [facility] Comment:Desirable Cholestero l: less than 200 mg/dLBorderline High Cholesterol: 200-239 mg/dLHigh Cholesterol: greater than 239 mg/dL LDL Cholesterol Calculated 100(H) <100 mg/dL [facility] Comment:Desirable LDL: less than 100 mg/dLNear Optimal/Above Optimal LDL: 110- 129 mg/dLBorderline High LDL: 130-159 mg/dLHigh LDL: 160-189 mg/dLVery High LDL: greater than or equal to 190 mg/dL HDL Cholesterol 52 >40 mg/dL [facility] Comment:Desirable HDL: great er than 40 mg/dL Note: This HDL assay may give artificially low results in patients with liver disease. Blood Venous blood specimen / Unknown 08/03/2025 08/03/2025 us Anurag Washington MD LAB BLOOD ORDERABLES Final Result [facility] [address] [place] [address] [phone] * (ABNORMAL) Comprehensive Metabolic Panel (08/03/2025 12:00 AM EDT) Sodium 143 135 - 145 mmol/L [facility] Potassium 3.8 3.3 - 5.1 mmol/L [facility] Chloride 110(H) 96 - 108 mmol/L [facility] Carbon Dioxide 28 22 - 29 mmol/L [facility] Anion Gap 9(L) 12 - 20 [facility] Urea Nitrogen (BUN) 13 9 - 16 mg/dL [facility] Creatinine, Serum 0.59 0.5 - 1.4 mg/dL [facility] Estimated Glomerular Filt Rate >60 [facility] Comment:Chronic Kidney Disea se: Estimated GFR < 60 mL/min/1.90d9Ngnuym Kidney Disease: Estimated GFR < 15 mL/min/1.73m2 Glucose 101 60 - 115 mg/dL [facility] Calcium 9.0 8.4 - 10.2 mg/dL [facility] Bilirubin, Total 0.4 0.0 - 1.0 mg/dL [facility] Aspartate Amino Transferase 29 5 - 31 U/L [facility] Alanine Aminotransferase 20 0 - 31 U/L [facility] Total Protein 7.2 6.5 - 8.0 g/dL [facility] Albumin Level 4.3 3.5 - 5.0 g/dL [facility] Alkaline Phosphatase 77 39 - 117 U/L [facility] Blood Venous blood specimen / Unknown 08/03/2025 08/03/2025 Anurag Washington MD LAB BLOOD ORDERABLES Final Result [facility] [address] [place] [phone] * Hm Colonoscopy (04/27/2025) Colonoscopy Normal Normal Narrative Troi Pastrana - 04/27/2025 Recommended 10 years (see external hospital admission note on 04/27/2025) Historical Provider HEALTH MAINTENANCE Final Result * HPV High Risk with Reflex to Subtypes (04/05/2025 9:46 AM EDT) HPV High Risk Negative Negative [facility] HPV Genotype 16 Negative Negative [facility] HPV Genotype 18 Negative Negative [facility] Comment:HPV testing performe d at [facility] (CLIA#[id number]), [address] [place] [address].Testing for HPV was performed using the [employer]system. The presence of HPV in the female [...] MD LAB BLOOD ORDERABLES Final Re sult [facility] [address] [place] [phone] * Pap Smear (04/05/2025 9:46 AM EDT) Swab 04/05/2025 9:46 AM EDT 04/05/2025 2:27 PM EDT Narrative [facility] - 04/08/2025 9:21 AM EDT ----- ------- Name: Tanna Hinton Age/Sex: 49/F : 1975 Unit#: [id number] Attend Dr: Re04/05/25 Status: PRE REF Location: [facility] Disch: ----- ------- SPEC : [id number] RECD: 04/05/25 STATUS: ALON NARAYAN NUM: [id number] SADE: 04/05/[address] [facility] [address]: Polly Benz MD ENTERED: 04/05/25 SP TYPE: Pap Smr OTHR DR: ORDERED: Pap Smear Interpretation Satisfactory for evaluation. Negative for intraepithelial lesion or malignancy. Mild inflammation. HPV High Risk: Negative HPV Genotyping 16: Negative HPV Genotyping 18: Negative Clinical Information LMP: 02/16/2024 Previous PAP test: Unknown date/findings Material Received ThinPrep-Cervical ----- ------- Signed (signature on file) MARA Vogt (ASCP) 04/08/25920 ----- ------- END OF REPORT us Polly Benz MD LAB CYTOLOGY ORDERABLES Final Result [facility] [address] [place] [phone] * BI Mammogram Screening Tomosynthesis Bilateral (03/10/2025 8:10 AM EDT) Anatomical Region Laterality Modality Breast Bilateral Mammography 03/10/2025 8:10 AM EDT Narrative 03/18/2025 12:24 PM EDT [facility] [address] [place], [place] [address] Mammography Report Signed Patient: Tanna Hinton MR#: [id number] : 1975 Acct:[id number] Age/Sex: 49 / F ADM Date: 03/10/25 Loc: HO.MAMMO Attending Dr: Anurag Washington MD Ordering Physician: Anurag Washington MD Results: 1 Negative Date of Service: 03/10/25 Follow Up: 1 Year From Orig ina Mammogram Procedure(s): MM tomosynthesis screening BI Accession Number(s): [id number] cc: Anurag Washington MD EXAMINATION: MM SCREENING [...] 03/18/25 1221 DD/ 0810 TD/TT: 03/10/25 0825 Shower Screen Installer: Procedure Note Donotuseinterpreter, Image - 03/18/2025 [facility] [address] [place], [place] [address] Mammography Report Signed Patient: James Hinton#: [id number] : 1975Acct:[id number] Age/Sex: 49 / FADM Date: 03/10/25 Loc: HO.MAMMO Attending Dr: Anurag Washington MD Ordering Physician: Anurag Washington MDResults: 1 Negative Date of Service: 03/10/25Follow Up: 1 [facility] From [facility] Mammogram Procedure(s): MM tomosynthesis screening BI Accession Number(s): [id number] cc: Anurag Washington MD EXAMINATION: MM SCREENING [...] 03/18/25 1221 DD/ 0810 TD/TT: 03/10/25 0825 Shower Screen Installer: us Anurag Washington MD IMG BI PROCEDURES Final Res ult * Hepatitis C Viral RNA, Quantitative, Real-Time PCR (06/29/2024 9:35 AM EDT) Hepatitis C Viral Load <15 NOT DETECTED NOT DETECTED IU/mL [facility] HCV Log PCR <1.18 NOT DETECTED NOT DETECTED Log IU/mL [facility] Comment:For additional infor rohit, please refer tohttp://education.[employer]anche/faq/VLX88d6(This link is being provided for informational/educational purposes only.)THIS TEST WAS PERFORMED AT:[address] [place] [phone] COLLINS MD Blood 06/29/2024 9:35 AM EDT 06/29/2024 2:41 PM EDT Rose Marie Sharma INSTALLATIONS INSPECTOR LAB BLOOD ORDERABLES Final Res ult [facility] [address] [place] [address] [phone] * HIV-1/2 Antigen and Antibodies, Fourth Generation, with Reflexes (06/29/2024 9:35 AM EDT) Pathologist [facility] HIV AB/AG Nonreactive Nonreactive [facility] Comment:HIV-1 p24 Ag and/or HIV-1/HIV-2 Ab not detected.A test result that is nonreactive does not exclude thepossibility of exposure to or infection with HIV-1 and/orHIV-2. Nonreactive results in this assay for individualswith prior exposure to HIV-1 and/or HIV-2 may be due toantigen and antibody levels that are below the limit ofdetection of this assay.The [employer] HIV Ag/Ab Combo assay result andsupplemental assay results should be interpreted inconjunction with the patient's clinical presentation,history and other laboratory results. If the results areinconsistent with clinical evidence, additional testing issuggested to confirm the result. Blood Venous blood specimen / Unknown 06/29/2024 9:35 AM EDT 06/29/2024 2:36 PM EDT Rose Marie Sharma INSTALLATIONS INSPECTOR LAB BLOOD ORDERABLES Final Res ult [facility] [address] [place] [address] [phone] * gFOBT (08/27/2022 11:52 AM EDT) Fecal Occult Blood 1 Negative Fecal Occult Blood 2 Negative Fecal Occult Blood 3 Negative 08/27/2022 11:5 2 AM EDT Historical Provider POINT OF CARE TEST ENTER/ EDIT ORDERABLES Final Result from Last 3 Months or Most Recently Relevant to Health Maintenance Insurance 3 * Guarantor: Tanna Hinton Account Type Relation to Patient Date of Phone Billing Address Personal/Family Self [address] Care Teams Latin Teacher Relationship Specialty Start Date End Date Anurag Washington MD [address] [place] [address] PCP - General Internal Medicine 09/04/20
--- OUTSIDE RECORDS SUMMARY | 2025-08-08 12:27 | XMS_ITS | Clinical Summary ---
Author Organization [address] [place] [address] Address [address] [place] [address] Phone Care Team Providers Care Benefits Coordinator Name Role Phone Physician, Pcp Unknown Primary [...] 10/18/2015 Cholesterol Screening (Lipid Panel) 06/29/2029 06/29/2024 RSV Immunization Adult Patients (1 - 1-dose 75+ series) 2048 Hepatitis [...] to complete this topic Insurance [place] Care Teams Benefits Coordinator Relationship Specialty Start Date End Date Physician, Pcp Unknown PCP - General 12/06/24
--- OUTSIDE RECORDS SUMMARY | 2025-08-08 12:27 | XMS_ITS | Encounter Summary ---
Author Organization [employer] Address [address] [place] [address] 7 [place] [address] Care Team Providers Care Feed Research Aide Name Role Phone Anurag Washington MD Primary Care Provider [phone]- [phone] Reason for Referral * Imaging (Routine) - Closed Specialty Diagnoses / Procedures Referred By Roxanne salter Referred To Contact Radiology Diagnoses Right lower quadrant abdominal pain Procedures US Pelvis Transvaginal Anurag Washington MD [address] [place] [address] Phone: tel: fax: [address] Phone: tel: fax: Referral ID Status Reason Start Date Expiration Date Visits Re quested Visits Authorized [id number] Closed 07/09/2023 07/08/2024 1 1 Encounter Details Date Type Department Care Team ([facility] st Contact Info) Description 07/09/2023 Orders Only [facility] [address] [place], [place] [phone] Anurag Washington MD [address] [place], [place] [phone] Right lower quadrant abdominal pain (Primary Dx) [...] Description 09/27/2025 4:00 PM EST Office Visit [facility] [address] [place] [address] Anurag Washington MD [address] [place] [address] documented as of this encounter Procedures Procedure Name Priority Date/Time Associated Diagnosis Comments US PELVIS TRANSVAGINAL Routine 07/30/2023 11:25 AM EDT Right lower quadrant abdominal pain documented in this encounter Results * US Pelvis Transvaginal (07/30/2023 11:25 AM EDT) Anatomical Region Laterality Modality Pelvis Ultrasound 07/30/2023 11:2 5 AM EDT Narrative 07/31/2023 1:35 PM EDT [address] [address] Ultrasound Report Signed Patient: Tanna Hinton MR#: [id number] : 1975 Acct:[id number] Age/Sex: 47 / F ADM Date: 07/30/23 Loc: HO.US Attending Dr: Anurag Washington MD Ordering Physician: Anurag Washington MD Date of Service: 07/30/23 Procedure(s): US pelvic and transvaginal Accession Number(s): [id number] cc: Anurag Washington MD EXAMINATION: US PELVIS [...] in OV> 07/31/23 1331 DD/ 1125 TD/TT: Warehouse Incentive Selector: SS Procedure Note Donotuseinterpreter, Image - 07/31/2023 [place] [address] Ultrasound Report Signed Patient: James Hinton#: [id number] : 1975Acct:[id number] Age/Sex: 47 / FADM Date: 07/30/23 Loc: HO.US Attending Dr: Anurag Washington MD Ordering Physician: Anurag Washington MD Date of Service: 07/30/23 Procedure(s): US pelvic and transvaginal Accession Number(s): [id number] cc: Anurag Washington MD EXAMINATION: US PELVIS [...] in OV> 07/31/23 1331 DD/ 1125 TD/TT: Warehouse Incentive Selector: SS us Anurag Washington MD IMG US PROCEDURES Final Res ult documented in this encounter Visit Diagnoses Diagnosis Right lower quadrant abdominal pain- Primary documented in this encounter Care Teams Feed Research Aide Relationship Specialty Start Date End Date Anurag Washington MD [address] [place] [address] PCP - General Internal Medicine 09/04/20 documented as of this encounter
--- OUTSIDE RECORDS SUMMARY | 2025-08-08 12:28 | XMS_ITS | Encounter Summary ---
Author Organization [facility] Address [address] [place] [address] 7 [place] [address] Care Team Providers Care Drapery Seamstress Name Role Phone Anurag Washington MD Primary Care Provider +1 [phone] Encounter Details Date Type Department Care Team ([facility] Contact Info) Description 11/29/2022 Orders Only [facility] [address] [place] [address] Keeley Bassett LPN Social History Tobacco Use [...] Upcoming Encounters Date Type Department Care Team ([facility] Contact Info) Description 09/27/2025 4:00 PM EST Office Visit [facility] [address] [place] [address] Anurag Washington MD [address] [place] [address] documented as of this encounter Visit Diagnoses Not on filedocumented in this encounter Care Teams Drapery Seamstress Relationship Specialty Start Date End Date Anurag Washington MD [address] [place] [address] PCP - General Internal Medicine 09/04/20 documented as of this encounter
[2025-08-08 14:21] LABS: MANUAL DIFF FLAG NO
[2025-08-08 14:32] LABS: Hematocrit 37.2 % (37.0-47.0); Hemoglobin 12.4 g/dl (12.0-16.0); Imm Gran Abs Auto 0.03 X10*3/uL (0.00-0.03); Imm Gran Pct Auto 0.5 % (0.0-0.4); Lymphocytes Absolute Auto 1.5 X10*3/uL (1.2-4.9); Mean Corpuscular HGB Conc 33.3 g/dl (31.0-35.0); Mean Corpuscular Hemoglobin 29.7 pg (27.0-33.0); Mean Corpuscular Volume 89.2 fL (80.0-98.0); NRBC Abs Auto 0.000 X10*3/uL (0.0-0.012); NRBC Pct Auto 0.0 /100WBC (0.0-0.2); Platelet Count 228 X10*3/uL (160-400); Red Blood Count 4.17 X10*6/uL (4.20-5.50); White Blood Count 6.1 X10*3/uL (4.8-10.8)
== END 2025-08-08 10:08 | disposition home or self-care (01) ==
LOC: HO.CHCLDS 10:07
PROVIDERS: Visit Provider Internal Medicine
DX: D50.8 Other iron deficiency anemias (principal); E55.9 Vitamin D deficiency, unspecified
CPT/HCPCS: 36415; 82306; 85025

== ENCOUNTER 2025-08-25 07:11 | Outpatient (REF) | payer OTHER, SELFPAY ==
--- NOTE | ~2025-08-25 | XR_ITS ---
EXAMINATION: XR KNEE 3 VIEWS LEFT HISTORY: left knee pain COMPARISON: Comparison is made with the prior examination dated 08/15/2015. FINDINGS: Three views of the left knee are submitted. Osseous mineralization is normal. There is no fracture or dislocation. There is moderate narrowing of the medial compartment. There are small osteophytes off the patella. There is a small joint effusion. XR/XR knee LT 3V IMPRESSION: Osteoarthritis of the left knee as described. Electronically signed by: Shant Merlos MD 08/25/2025 07:35 AM EDT
== END 2025-08-25 07:12 | disposition home or self-care (01) ==
LOC: HO.XRAY 07:11
PROVIDERS: PCP Internal Medicine; Visit Provider Internal Medicine
DX: M25.562 Pain in left knee (principal); G89.29 Other chronic pain
CPT/HCPCS: 73562

== ENCOUNTER → 2025-08-25 07:20 | Outpatient (BNV) | payer OTHER, SELFPAY | PROVIDERS: PCP Internal Medicine; Visit Provider Radiology Diagnostic Radiology | DX: M17.12 Unilateral primary osteoarthritis, left knee (principal) | CPT/HCPCS: 73562 ==